=== PATIENT | male | born 1975 | race Caucasian/White ===

== ENCOUNTER 2020-07-17 13:31 | Inpatient (IN) | payer BC ==
[~2020-07-17] VITALS: Ht 172.7 cm; Wt 88.5 kg
[2020-07-17 14:05] LABS: BASO % 1 % (0-3); EOS # 0.1 x10^3/uL (0.0-0.7); EOS % 1 % (0-3); HEMATOCRIT 42.9 % (39.0-53.0); LYMPH # 0.8 x10^3/uL (1.0-4.8); LYMPH % 16 % (24-48); MEAN CORPUSCULAR HEMOGLOBIN 27 pg (25-35); MEAN CORPUSCULAR HGB CONC 35 g/dL (31-37); MEAN CORPUSCULAR VOLUME 78 fL (79-100); MONO # 0.6 x10^3/uL (0.0-1.1); MONO % 11 % (0-9); NEUT # 3.6 x10^3/uL (1.8-7.7); NEUT % 71 % (31-73); PLATELET COUNT 137 x10^3/uL (140-400); RED CELL DISTRIBUTION WIDTH 13.1 % (11.5-14.5); WHITE BLOOD COUNT 5.1 x10^3/uL (4.0-11.0)
[2020-07-17 14:24] LABS: CALCIUM 8.8 mg/dL (8.5-10.1); CREATININE 0.5 mg/dL (0.7-1.3); GFR 178.2; POTASSIUM 3.9 mmol/L (3.5-5.1)
--- NOTE | 2020-07-17 14:27 | RAD ---
Examination: FOOT RIGHT 3V History: Reason: foot wound x1 month / Spl. Instructions: / History: Comparison/Correlation: None Findings: Total 3 views of the right foot were obtained. Moderate sized calcaneal spur is present. Calcification along the course of the plantar fascia posteriorly is noted. Enthesopathy at the Achilles tendon insertion site seen. Calcific densities overlying the anterior margin of the Achilles tendon shadow on the lateral view noted. Spurring involving the mid foot noted. No displaced fracture or bone destruction. Impression: Degenerative changes are moderately advanced for age. No fracture or bone obstruction. Consider further imaging if osteomyelitis is a concern. Electronically signed by: Genaro Gutierrez MD (07/17/2020 2:24 PM) [id number]
[2020-07-17 14:38] LABS: ALBUMIN 3.2 g/dL (3.4-5.0); ALBUMIN/GLOBULIN RATIO 0.7 (1.0-1.7); MAGNESIUM 1.7 mg/dL (1.8-2.4); TOTAL BILIRUBIN 0.6 mg/dL (0.2-1.0); TOTAL PROTEIN 7.7 g/dL (6.4-8.2)
--- NOTE | 2020-07-17 15:06 | PDOC1 ---
History and Physical Date of Admission Date of Admission DATE: 07/17/20 TIME: 15:02 Identification/Chief Complaint Chief Complaint Foot pain Source Source: Patient History of Present Illness History of Present Illness Mr Álvarez is a 45 yo M w/ PMHx HTN, DM2, diabetic peripheral neuropathy who presents to the emergency department with complaints of wound to the bottom of his right foot that began a month ago. Patient states he went to his pool installer today who told him that he should go to the hospital for treatment. He denies any fever, cough, body aches, nausea, vomiting, diarrhea, shortness of breath, or abdominal pain. Patient states that his right leg has been swollen and now has some redness and warmth in his foot and lower leg. He works on his feet all day at [employer], notes that his A1c was 7 approximately 2 months ago. He does have regular podiatry follow-up and was actually referred to the wound clinic at [facility] today but was prompted to go to the hospital instead by his pool installer. Right foot XR with Calcific densities overlying the anterior margin of the Achilles tendon shadow on the lateral view noted. Spurring involving the mid foot noted. no osteomyelitis changes. Labs significant for WBC 5.1, Hb 15 with MCV 8078, platelets 132, NA 138, K3.9, BUN 12, CR 0.5, lactate 1.1, magnesium 1.7, albumin 3.2, glucose 160. Past Medical History Cardiovascular: HTN Endocrine: Diabetes Past Surgical History Past Surgical History: No pertinent history Family History Family History: Diabetes, Hypertension Social History Smoke: Quit ALCOHOL: none Drugs: None Allergies Allergies: Coded Allergies: No Known Drug Allergies (Unverified , 07/17/20) ROS General: YES: Fatigue, Malaise; No: Chills, Night Sweats, Appetite, Other PSYCHOLOGICAL ROS: No: Anxiety, Behavioral Disorder, Concentration difficultie, Decreased libido, Depression, Disorientation, Hallucinations, Hostility, Irritablity, Memory difficulties, Mood Swings, Obsessive thoughts, Physical abuse, Sexual abuse, Sleep disturbances, Suicidal ideation, Other Eyes: No Blurry vision, No Decreased vision, No Double vision, No Dry eyes, No Excessive tearing, No Eye Pain, No Itchy Eyes, No Loss of vision, No Photophobia, No Scotomata, No Uses contacts, No Uses glasses, No Other HEENT: No: Heacaches, Visual Changes, Hearing change, Nasal congestion, Nasal discharge, Oral lesions, Sinus pain, Sore Throat, Epistaxis, Sneezing, Snoring, Tinnitus, Vertigo, Vocal changes, Other ALLERGY AND IMMUNOLOGY: No: Hives, Insect Bite Sensitivity, Itchy/Watery Eyes, Nasal Congestion, Post Nasal Drip, Seasonal Allergies, Other Hematological and Lymphatic: No: Bleeding Problems, Blood Clots, Blood Transfusions, Brusing, Night Sweats, Pallor, Swollen Lymph Nodes, Other ENDOCRINE: No: Breast Changes, Galactorrhea, Hair Pattern Changes, Hot Flashes, Malaise/lethargy, Mood Swings, Palpitations, Polydipsia/polyuria, Skin Changes, Temperature Intolerance, Unexpected Weight Changes, Other Breast: No New/Changing Breast Lumps, No Nipple changes, No Nipple discharge, No Other Respiratory: No: Cough, Hemoptysis, Orthopnea, Pleuritic Pain, Shortness of breath, SOB with excertion, Sputum Changes, Stridor, Tachypnea, Wheezing, Other Cardiovascular: No Chest Pain, No Palpitations, No Orthopnea, No Paroxysmal Noc. Dyspnea, No Edema, No Lt Headedness, No Other Gastrointestinal: No Nausea, No Vomiting, No Abdominal Pain, No Diarrhea, No Constipation, No Melena, No Hematochezia, No Other Genitourinary: No Dysuria, No Frequency, No Incontinence, No Hematuria, No Retention, No Discharge, No Urgency, No Pain, No Flank Pain, No Other, No , No , No , No , No , No , No Musculoskeletal: Yes Gait Disturbance, Yes Joint Pain; No Joint Stiffness, No Joint Swelling, No Muscle Pain, No Muscular Weakness, No Pain In:, No Swelling In:, No Other Neurological: No Behavorial Changes, No Bowel/Bladder ControlChng, No Confusion, No Dizziness, No Gait Disturbance, No Headaches, No Impaired Coord/balance, No Memory Loss, No Numbness/Tingling, No Seizures, No Speech Problems, No Tremors, No Visual Changes, No Weakness, No Other Skin: Yes Rash, Yes Skin Lesion Changes; No Dry Skin, No Eczema, No Hair Changes, No Lumps, No Mole Changes, No Mottling, No Nail Changes, No Pruritus, No Other, No Acne Physical Exam General: Alert, Oriented X3, Cooperative, No acute distress HEENT: Atraumatic, PERRLA, EOMI, Mucous membr. moist/pink Lungs: Clear to auscultation, Normal air movement Heart: S1S2, RRR, no thrills, no rubs, no gallops, no murmurs Abdomen: Normal bowel sounds, Soft, No tenderness, No hepatosplenomegaly, No masses Rectal Exam: not examined Extremities: No clubbing, No cyanosis, Other (RLE edema, swelling, decreased DP and PT) Skin: Other (Right foot with some redness, open wound 5th MTP laterally and 2nd and 3rd MTP joint with ulcer between his 4th and 5th toe) Neuro: Normal gait, Normal speech, Strength at 5/5 X4 ext, Normal tone, Sensati on intact, Cranial nerves 3-12 NL, Reflexes 2+ Psych/Mental Status: Mental status NL, Mood NL Vitals Vitals Vital Signs Date Time Temp Pulse Resp B/P (MAP) Pulse Ox O2 Delivery O2 Flow Rate FiO2 07/17/20 13:40 98.5 105 12 161/67 (98) 98 Room Air 98.5 Labs Labs Laboratory Tests Test 07/17/20 13:48 White Blood Count 5.1 x10^3/uL (4.0-11.0) Red Blood Count 5.50 x10^6/uL (4.30-5.70) Hemoglobin 15.0 g/dL (13.0-17.5) Hematocrit 42.9 % (39.0-53.0) Mean Corpuscular Volume 78 fL (79-100) Mean Corpuscular Hemoglobin 27 pg (25-35) Mean Corpuscular Hemoglobin Concent 35 g/dL (31-37) Red Cell Distribution Width 13.1 % (11.5-14.5) Platelet Count 137 x10^3/uL (140-400) Neutrophils (%) (Auto) 71 % (31-73) Lymphocytes (%) (Auto) 16 % (24-48) Monocytes (%) (Auto) 11 % (0-9) Eosinophils (%) (Auto) 1 % (0-3) Basophils (%) (Auto) 1 % (0-3) Neutrophils # (Auto) 3.6 x10^3/uL (1.8-7.7) Lymphocytes # (Auto) 0.8 x10^3/uL (1.0-4.8) Monocytes # (Auto) 0.6 x10^3/uL (0.0-1.1) Eosinophils # (Auto) 0.1 x10^3/uL (0.0-0.7) Basophils # (Auto) 0.0 x10^3/uL (0.0-0.2) Sodium Level 138 mmol/L (136-145) Potassium Level 3.9 mmol/L (3.5-5.1) Chloride Level 104 mmol/L (98-107) Carbon Dioxide Level 25 mmol/L (21-32) Anion Gap 9 (6-14) Blood Urea Nitrogen 17 mg/dL (8-26) Creatinine 0.5 mg/dL (0.7-1.3) Estimated GFR (Cockcroft-Gault) 178.2 BUN/Creatinine Ratio 34 (6-20) Glucose Level 160 mg/dL (70-99) Lactic Acid Level 1.1 mmol/L (0.4-2.0) Calcium Level 8.8 mg/dL (8.5-10.1) Magnesium Level 1.7 mg/dL (1.8-2.4) Total Bilirubin 0.6 mg/dL (0.2-1.0) Aspartate Amino Transf (AST/SGOT) 32 U/L (15-37) Alanine Aminotransferase (ALT/SGPT) 36 U/L (16-63) Alkaline Phosphatase 83 U/L (46-116) Total Protein 7.7 g/dL (6.4-8.2) Albumin 3.2 g/dL (3.4-5.0) Albumin/Globulin Ratio 0.7 (1.0-1.7) Laboratory Tests Test 07/17/20 13:48 White Blood Count 5.1 x10^3/uL (4.0-11.0) Red Blood Count 5.50 x10^6/uL (4.30-5.70) Hemoglobin 15.0 g/dL (13.0-17.5) Hematocrit 42.9 % (39.0-53.0) Mean Corpuscular Volume 78 fL (79-100) Mean Corpuscular Hemoglobin 27 pg (25-35) Mean Corpuscular Hemoglobin Concent 35 g/dL (31-37) Red Cell Distribution Width 13.1 % (11.5-14.5) Platelet Count 137 x10^3/uL (140-400) Neutrophils (%) (Auto) 71 % (31-73) Lymphocytes (%) (Auto) 16 % (24-48) Monocytes (%) (Auto) 11 % (0-9) Eosinophils (%) (Auto) 1 % (0-3) Basophils (%) (Auto) 1 % (0-3) Neutrophils # (Auto) 3.6 x10^3/uL (1.8-7.7) Lymphocytes # (Auto) 0.8 x10^3/uL (1.0-4.8) Monocytes # (Auto) 0.6 x10^3/uL (0.0-1.1) Eosinophils # (Auto) 0.1 x10^3/uL (0.0-0.7) Basophils # (Auto) 0.0 x10^3/uL (0.0-0.2) Sodium Level 138 mmol/L (136-145) Potassium Level 3.9 mmol/L (3.5-5.1) Chloride Level 104 mmol/L (98-107) Carbon Dioxide Level 25 mmol/L (21-32) Anion Gap 9 (6-14) Blood Urea Nitrogen 17 mg/dL (8-26) Creatinine 0.5 mg/dL (0.7-1.3) Estimated GFR (Cockcroft-Gault) 178.2 BUN/Creatinine Ratio 34 (6-20) Glucose Level 160 mg/dL (70-99) Lactic Acid Level 1.1 mmol/L (0.4-2.0) Calcium Level 8.8 mg/dL (8.5-10.1) Magnesium Level 1.7 mg/dL (1.8-2.4) Total Bilirubin 0.6 mg/dL (0.2-1.0) Aspartate Amino Transf (AST/SGOT) 32 U/L (15-37) Alanine Aminotransferase (ALT/SGPT) 36 U/L (16-63) Alkaline Phosphatase 83 U/L (46-116) Total Protein 7.7 g/dL (6.4-8.2) Albumin 3.2 g/dL (3.4-5.0) Albumin/Globulin Ratio 0.7 (1.0-1.7) Images Images Right Foot XR: Moderate sized calcaneal spur is present. Calcification along the course of the plantar fascia posteriorly is noted. Enthesopathy at the Achilles tendon insertion site seen. Calcific densities overlying the anterior margin of the Achilles tendon shadow on the lateral view noted. Spurring involving the mid foot noted. No displaced fracture or bone destruction. Impression: Degenerative changes are moderately advanced for age. No fracture or bone obstruction. Consider further imaging if osteomyelitis is a concern. VTE Prophylaxis Ordered VTE Prophylaxis Devices: No VTE Pharmacological Prophylaxi: Yes Assessment/Plan Assessment/Plan A/P: Right foot with diabetic ulcer - open wound, foul smelling, actively bleeding. Will obtain deep wound culture, blood cultures, empiric vancomycin and zosyn. RLE vascular studies to assess whether vascular or ortho consultation for possible surgical debridement Right foot and leg cellulitis - failed outpatient therapy with podiatry, antibiotics as above DM2 - A1c 7, will place on sliding scale while inpatient Diabetic polyneuropathy - cont home gabapentin HTN - cont home meds FEN - ADA diet PPX - lovenox FULL CODE Dispo - inpatient for diabetic ulcer failing outpatient therapy Justifications for Admission Other Justification LIZBETH MARTIN MD Jul 17, 2020 15:06
--- NOTE | 2020-07-17 15:10 | PHYS DOC ---
Past Medical History Past Medical History: Diabetes-Type II, Hypertension Past Surgical History: No Surgical History Smoking Status: Former Smoker Alcohol Use: None General Adult EDM: Chief Complaint: OTHER COMPLAINTS HPI: HPI: Patient is a 45 year old male who presents to the emergency department with complaints of wound to the bottom of his right foot that began a month ago. Patient states he went to his foot doctor today who told him that he should go to the hospital for treatment. He denies any fever, cough, body aches, nausea, vomiting, diarrhea, shortness of breath, or abdominal pain. Patient states that his right leg has been swollen but denies any warmth or redness to his right lower leg. He reports a history of diabetes, he denies any recent fluctuations in his blood sugars. Patient reports a history of neuropathy denies any pain. Review of Systems: Review of Systems: Constitutional: Denies fever or chills. [] HENT: Denies nasal congestion or sore throat. [] Respiratory: Denies cough or shortness of breath. [] Cardiovascular: Denies chest pain or edema. [] GI: Denies abdominal pain, nausea, vomiting, or diarrhea. [] Musculoskeletal: Denies back pain or joint pain; see HPI. [] Integument: Reports ulcer to the bottom of right foot at the base of the second toe for 1 month, see HPI Neurologic: Denies focal weakness or sensory changes. [] Endocrine: Denies polyuria or polydipsia. [] Psychiatric: Denies depression or anxiety. [] Heart Score: Risk Factors: Risk Factors: DM, Current or recent (<one month) smoker, HTN, HLP, family history of CAD, obesity. Risk Scores: Score 0 - 3: 2.5% MACE over next 6 weeks - Discharge Home Score 4 - 6: 20.3% MACE over next 6 weeks - Admit for Clinical Observation Score 7 - 10: 72.7% MACE over next 6 weeks - Early Invasive Strategies Allergies: Allergies: Allergies Coded Allergies Type Severity Reaction Last Updated Verified No Known Drug Allergies 07/17/20 No Physical Exam: PE: Constitutional: Well developed, well nourished, no acute distress, non-toxic appearance. [] HENT: Normocephalic, atraumatic, bilateral external ears normal, nose normal. [] Eyes: PERRLA, EOMI, conjunctiva normal, no discharge. [] Neck: Normal range of motion, no stridor. [] Cardiovascular:Heart rate regular rhythm Lungs & Thorax: Respirations even and unlabored, no retractions, no respiratory distress Abdomen: soft, no tenderness Skin: Warm, dry, no erythema, no rash; open wound to the right foot at the base of the second toe with necrotic tissue present consistent with diabetic foot ulcer [] Extremities: RLE: Nontender, no obvious deformity, no cyanosis, ROM intact, 2+ edema to right foot and lower leg Neurologic: Alert and oriented X 3, no focal deficits noted. [] Psychologic: Affect normal, judgement normal, mood normal. [] Current Patient Data: Labs: Laboratory Tests Test 07/17/20 13:48 White Blood Count 5.1 x10^3/uL (4.0-11.0) Red Blood Count 5.50 x10^6/uL (4.30-5.70) Hemoglobin 15.0 g/dL (13.0-17.5) Hematocrit 42.9 % (39.0-53.0) Mean Corpuscular Volume 78 fL (79-100) L Mean Corpuscular Hemoglobin 27 pg (25-35) Mean Corpuscular Hemoglobin Concent 35 g/dL (31-37) Red Cell Distribution Width 13.1 % (11.5-14.5) Platelet Count 137 x10^3/uL (140-400) L Neutrophils (%) (Auto) 71 % (31-73) Lymphocytes (%) (Auto) 16 % (24-48) L Monocytes (%) (Auto) 11 % (0-9) H Eosinophils (%) (Auto) 1 % (0-3) Basophils (%) (Auto) 1 % (0-3) Neutrophils # (Auto) 3.6 x10^3/uL (1.8-7.7) Lymphocytes # (Auto) 0.8 x10^3/uL (1.0-4.8) L Monocytes # (Auto) 0.6 x10^3/uL (0.0-1.1) Eosinophils # (Auto) 0.1 x10^3/uL (0.0-0.7) Basophils # (Auto) 0.0 x10^3/uL (0.0-0.2) Sodium Level 138 mmol/L (136-145) Potassium Level 3.9 mmol/L (3.5-5.1) Chloride Level 104 mmol/L (98-107) Carbon Dioxide Level 25 mmol/L (21-32) Anion Gap 9 (6-14) Blood Urea Nitrogen 17 mg/dL (8-26) Creatinine 0.5 mg/dL (0.7-1.3) L Estimated GFR (Cockcroft-Gault) 178.2 BUN/Creatinine Ratio 34 (6-20) H Glucose Level 160 mg/dL (70-99) H Lactic Acid Level 1.1 mmol/L (0.4-2.0) Calcium Level 8.8 mg/dL (8.5-10.1) Magnesium Level 1.7 mg/dL (1.8-2.4) L Total Bilirubin 0.6 mg/dL (0.2-1.0) Aspartate Amino Transferase (AST) 32 U/L (15-37) Alanine Aminotransferase (ALT) 36 U/L (16-63) Alkaline Phosphatase 83 U/L (46-116) Total Protein 7.7 g/dL (6.4-8.2) Albumin 3.2 g/dL (3.4-5.0) L Albumin/Globulin Ratio 0.7 (1.0-1.7) L Laboratory Tests 07/17/20 13:48 Laboratory Tests 07/17/20 13:48 Vital Signs: Vital Signs Date Time Temp Pulse Resp B/P (MAP) Pulse Ox O2 Delivery O2 Flow Rate FiO2 07/17/20 13:40 98.5 105 12 161/67 (98) 98 Room Air 98.5 EKG: EKG: [] Radiology/Procedures: Radiology/Procedures: PROCEDURE: FOOT RIGHT 3V Examination: FOOT RIGHT 3V History: Reason: foot wound x1 month / Spl. Instructions: / History: Comparison/Correlation: None Findings: Total 3 views of the right foot were obtained. Moderate sized calcaneal spur is present. Calcification along the course of the plantar fascia posteriorly is noted. Enthesopathy at the Achilles tendon insertion site seen. Calcific densities overlying the anterior margin of the Achilles tendon shadow on the lateral view noted. Spurring involving the mid foot noted. No displaced fracture or bone destruction. Impression: Degenerative changes are moderately advanced for age. No fracture or bone obstruction. Consider further imaging if osteomyelitis is a concern. Electronically signed by: Genaro Gutierrez MD (07/17/2020 2:24 PM) [id number] [] Course & Med Decision Making: Course & Med Decision Making Pertinent Labs and Imaging studies reviewed. (See chart for details) 1445: Spoke with Dr. Willard who is the admitting physician, and care was assumed following discussion of patient. Will admit patient for right foot wound Patient's vital signs stable. Patient remains afebrile, appears nontoxic, respirations even and unlabored. Patient will be admitted to the med/surgical floor. Dragon Disclaimer: Dragon Disclaimer: This electronic medical record was generated, in whole or in part, using a voice recognition dictation system. Departure Departure Impression: Primary Impression: Unspecified open wound, right foot, initial encounter Disposition: ADMITTED INPATIENT Admitting Physician: JUSTO (Sudheer) Condition: STABLE Referrals: MARLENE DUGAN (PCP) Justicifation of Admission Dx: Justifications for Admission: Justification of Admission Dx: Yes Sepsis: Infection TOMMIE MOORE [employer] Jul 17, 2020 15:10
[2020-07-17] MEDS ORDERED: MAGNESIUM SULFATE 2GM 50 ML IV ONE (15:15)
[2020-07-17 16:00] VITALS: BP 164/96
[2020-07-17] MEDS ORDERED: LORazepam 0.5 MG TABLET PO PRN (16:30)
[2020-07-17] MEDS ORDERED: ACETAMINOPHEN 325 MG TABLET. PO PRN (16:30)
[2020-07-17] MEDS ORDERED: MORPHINE SULFATE 2 MG/ML VIAL. IV PRN (16:30)
[2020-07-17] MEDS ORDERED: DEXTROSE 50% 25 GM / 50ML DISP.SYRIN. IV PRN (16:30)
[2020-07-17] MEDS ORDERED: ZOLPIDEM 5 MG TABLET. PO PRN (16:30)
[2020-07-17] MEDS ORDERED: DOCUSATE SODIUM 100 MG CAPSULE. PO PRN (16:30)
[2020-07-17] MEDS ORDERED: ONDANSETRON PF 4 MG/2 ML VIAL. IV PRN (16:30)
--- NOTE | 2020-07-17 16:41 | RAD ---
Right lower extremity arterial ultrasound History: : Wound, swelling, decreased pulses Findings: Multiple grayscale, color, and duplex spectral analysis sonographic images were acquired of the lower extremity arteries bilaterally. There are no previous similar exams. Triphasic flow is noted throughout the visualized right lower extremity arterial vasculature with the exception of the profunda femoris artery which has biphasic flow. Peroneal artery was not delineated.. Velocities in cm/sec: RIGHT Common femoral artery 133 Profunda femoris artery 40 Proximal SFA 118 Mid SFA 125 Distal SFA 107 Popliteal artery 138 Anterior tibial artery 87 Dorsalis pedis artery 94 Posterior tibial artery 145 Peroneal artery not visualized Impression: No right lower extremity arterial hemodynamic stenosis identified. No significant plaque seen. Electronically signed by: Geanro Gutierrez MD (07/17/2020 4:38 PM) [id number]
[2020-07-17] MEDS: INSULIN LISPRO 300 UNITS/3 ML VIAL. SQ SCH ×2 (17:00→21:00)
[2020-07-17] MEDS ORDERED: GLIP5TAB22 PO (17:34)
[2020-07-17] MEDS ORDERED: GABA-585 PO (17:34)
[2020-07-17] MEDS ORDERED: LISI-334 PO (17:34)
[2020-07-17] MEDS ORDERED: INSU100V37 SQ (17:34)
[2020-07-17] MEDS ORDERED: VANCOMYCIN 2 GM in IV NORMAL SALINE 500ML BAG 500 ML IV ONE (18:30)
[2020-07-17 19:00] VITALS: BP 156/89
[2020-07-17] MEDS ORDERED: FLU VACC QS 2020-21(6MOS+)/PF 0.5 ML SYRINGE. VAX IM ONE (19:00)
--- NOTE | 2020-07-17 19:31 | NUR ---
Per , only culture wound if there is noticeable drainage.
[2020-07-17] MEDS: PIPERACILLIN/TAZOBACTAM 3.375 GM in IV NORMAL SALINE 50ML 50 ML IV SCH ×2 (20:02→23:53)
[2020-07-17] MEDS: traMADol 50 MG TABLET PO PRN (20:03)
[2020-07-17] MEDS: VANCOMYCIN PER PHARMACY MC PRN (20:18)
--- NOTE | 2020-07-17 20:22 | NUR ---
Pharmacy Vancomycin Dosing Note S:Consulted to monitor and dose vancomycin started 07/17/20. O:SISSY JORDAN is a 45 year old M with Cellulitis. Height: 5 feet, 8 inches Weight: 84.0 kg [place] Body Weight: 68.40 Adjusted Body Weight: 74.64 Dosing Weight: Actual Other Antibiotics: zosyn LABS: Last BUN: 17 Last Creatinine: 0.5 Creatinine Clearance: >100 mL/min Last WBC: 5.1 Last Procalcitonin: - Tmax (past 24 hours): 98.5 Vancomycin Dosing: Loading Dose: 2000 mg x1 Dosing Weight: Actual Target Trough: A: Based on: weight and renal function P: 1. Begin Vancomycin 1250 mg IV q8h after 2g loading dose 2. Follow up Trough level on 07/18/20 at 2030 3. Pharmacy will continue to monitor, follow and adjust therapy as needed. Charity Hutchins RPH, 07/17/202022
[2020-07-17 23:00] VITALS: BP 146/81
[2020-07-18] VITALS (12 sets, daily range): BP systolic 130–162; BP diastolic 77–94
[2020-07-18] MEDS: PIPERACILLIN/TAZOBACTAM 3.375 GM in IV NORMAL SALINE 50ML 50 ML IV SCH ×4 (05:31→23:35)
[2020-07-18] MEDS: VANCOMYCIN 1.25 GM in IV NORMAL SALINE 250ML 250 ML IV SCH ×3 (05:54→21:17)
[2020-07-18 07:54] LABS: CALCIUM 8.4 mg/dL (8.5-10.1); CREATININE 0.6 mg/dL (0.7-1.3); GFR 144.4; POTASSIUM 3.9 mmol/L (3.5-5.1)
[2020-07-18] MEDS: INSULIN LISPRO 300 UNITS/3 ML VIAL. SQ SCH ×4 (08:13→21:28)
--- NOTE | 2020-07-18 08:45 | PDOC ---
[employer] PROGRESS NOTE Date of Service DOS: DATE: 07/18/20 TIME: 08:45 Chief Complaint Chief Complaint A/P: Right foot with diabetic ulcer - open wound, foul smelling, actively bleeding. Will obtain deep wound culture, blood cultures, empiric vancomycin and zosyn. RLE vascular studies to assess whether vascular or ortho consultation for possible surgical debridement Right foot and leg cellulitis - failed outpatient therapy with podiatry, antibiotics as above DM2 - A1c 7, will place on sliding scale while inpatient Diabetic polyneuropathy - cont home gabapentin HTN - cont home meds FEN - ADA diet PPX - lovenox FULL CODE Dispo - inpatient for diabetic ulcer failing outpatient therapy History of Present Illness History of Present Illness Mr Álvarez is a 45 yo M w/ PMHx HTN, DM2, diabetic peripheral neuropathy who presents to the emergency department with complaints of wound to the bottom of his right foot that began a month ago. Patient states he went to his marketing representative today who told him that he should go to the hospital for treatment. He denies any fever, cough, body aches, nausea, vomiting, diarrhea, shortness of breath, or abdominal pain. Patient states that his right leg has been swollen and now has some redness and warmth in his foot and lower leg. He works on his feet all day at [employer], notes that his A1c was 7 approximately 2 months ago. He does have regular podiatry follow-up and was actually referred to the wound clinic at [facility] today but was prompted to go to the hospital instead by his marketing representative. Right foot XR with calcific densities overlying the anterior margin of the Achilles tendon shadow on the lateral view noted. Spurring involving the mid foot noted. no osteomyelitis changes. Labs significant for WBC 5.1, Hb 15 with MCV 78, platelets 132, NA 138, K3.9, BUN 12, CR 0.5, lactate 1.1, magnesium 1.7, albumin 3.2, glucose 160. He had an uneventful night, still with drainage from foot. Labs stable. No SOB or CP, mild foot pain. NPO for possible OR today Vitals/I&O Vitals/I&O: Vital Signs Date Time Temp Pulse Resp B/P (MAP) Pulse Ox O2 Delivery O2 Flow Rate FiO2 07/18/20 03:00 98.9 84 18 133/77 (95) 96 Room Air 98.9 I & O 07/17/20 07/17/20 07/18/20 15:00 23:00 07:00 Intake Total 390 ml 1420 ml Output Total 1000 ml Balance 390 ml 420 ml Physical Exam General: Alert, Oriented X3, Cooperative, No acute distress Abdomen: Normal bowel sounds, Soft, No tenderness, No hepatosplenomegaly, No masses Extremities: No clubbing, No cyanosis, Other (RLE edema, swelling, decreased DP and PT) Skin: Other (Right foot with some redness, open wound 5th MTP laterally and 2nd and 3rd MTP joint with ulcer between his 4th and 5th toe) Labs Labs: Laboratory Tests Test 07/17/20 13:48 07/17/20 16:38 07/17/20 20:36 07/18/20 06:30 White Blood Count 5.1 x10^3/uL (4.0-11.0) Red Blood Count 5.50 x10^6/uL (4.30-5.70) Hemoglobin 15.0 g/dL (13.0-17.5) Hematocrit 42.9 % (39.0-53.0) Mean Corpuscular Volume 78 fL (79-100) Mean Corpuscular Hemoglobin 27 pg (25-35) Mean Corpuscular Hemoglobin Concent 35 g/dL (31-37) Red Cell Distribution Width 13.1 % (11.5-14.5) Platelet Count 137 x10^3/uL (140-400) Neutrophils (%) (Auto) 71 % (31-73) Lymphocytes (%) (Auto) 16 % (24-48) Monocytes (%) (Auto) 11 % (0-9) Eosinophils (%) (Auto) 1 % (0-3) Basophils (%) (Auto) 1 % (0-3) Neutrophils # (Auto) 3.6 x10^3/uL (1.8-7.7) Lymphocytes # (Auto) 0.8 x10^3/uL (1.0-4.8) Monocytes # (Auto) 0.6 x10^3/uL (0.0-1.1) Eosinophils # (Auto) 0.1 x10^3/uL (0.0-0.7) Basophils # (Auto) 0.0 x10^3/uL (0.0-0.2) Sodium Level 138 mmol/L (136-145) 140 mmol/L (136-145) Potassium Level 3.9 mmol/L (3.5-5.1) 3.9 mmol/L (3.5-5.1) Chloride Level 104 mmol/L (98-107) 105 mmol/L (98-107) Carbon Dioxide Level 25 mmol/L (21-32) 30 mmol/L (21-32) Anion Gap 9 (6-14) 5 (6-14) Blood Urea Nitrogen 17 mg/dL (8-26) 11 mg/dL (8-26) Creatinine 0.5 mg/dL (0.7-1.3) 0.6 mg/dL (0.7-1.3) Estimated GFR (Cockcroft-Gault) 178.2 144.4 BUN/Creatinine Ratio 34 (6-20) Glucose Level 160 mg/dL (70-99) 89 mg/dL (70-99) Lactic Acid Level 1.1 mmol/L (0.4-2.0) Calcium Level 8.8 mg/dL (8.5-10.1) 8.4 mg/dL (8.5-10.1) Magnesium Level 1.7 mg/dL (1.8-2.4) Iron Level 63 ug/dL (65-175) Total Iron Binding Capacity 269 ug/dL (250-450) Iron Saturation 23 % (15-34) Total Bilirubin 0.6 mg/dL (0.2-1.0) Aspartate Amino Transf (AST/SGOT) 32 U/L (15-37) Alanine Aminotransferase (ALT/SGPT) 36 U/L (16-63) Alkaline Phosphatase 83 U/L (46-116) C-Reactive Protein, Quantitative 15.6 mg/L (0-3.3) Total Protein 7.7 g/dL (6.4-8.2) Albumin 3.2 g/dL (3.4-5.0) Albumin/Globulin Ratio 0.7 (1.0-1.7) Thyroid Stimulating Hormone (TSH) 1.315 uIU/mL (0.358-3.74) Glucose (Fingerstick) 178 mg/dL (70-99) 181 mg/dL (70-99) Test 07/18/20 07:30 SARS-CoV-2 Antigen (Rapid) Negative (NEGATIVE) Assessment and Plan Assessmemt and Plan Problems Medical Problems: (1) Unspecified open wound, right foot, initial encounter Status: Acute Comment Review of Relevant I have reviewed the following items jayden (where applicable) has been applied. Medications: Current Medications Medications (Trade) Dose Ordered Sig/Mago Route PRN Reason Start Time Stop Time Status Last Admin Dose Admin Magnesium Sulfate 50 ml @ 25 mls/hr 1X ONCE IV 07/17/20 15:15 07/17/20 17:14 DC 07/17/20 23:52 Tramadol HCl (Ultram) 50 mg PRN Q6HRS PRN PO PAIN 07/17/20 16:30 07/17/20 20:03 Vancomycin HCl (Vanco Per Pharmacy) 1 each PRN DAILY PRN MC SEE COMMENTS 07/17/20 16:30 07/17/20 20:18 Vancomycin HCl 2 gm/Sodium Chloride 500 ml @ 250 mls/hr 1X ONCE IV 07/17/20 18:30 07/17/20 20:29 DC 07/17/20 21:09 Piperacillin Sod/ Tazobactam Sod 3.375 gm/Sodium Chloride 50 ml @ 100 mls/hr Q6HRS IV 07/17/20 18:00 07/18/20 05:31 Influenza Virus Vaccine Quadrival (Fluzone Quad Syringe) 0.5 ml ONCE ONCE VAX IM 07/17/20 19:00 07/17/20 19:01 DC 07/17/20 20:06 Vancomycin HCl 1.25 gm/Sodium Chloride 250 ml @ 167 mls/hr Q8H IV 07/18/20 05:00 07/18/20 05:54 Justifications for Admission Other Justification LIZBETH MARTIN MD Jul 18, 2020 08:45
--- NOTE | 2020-07-18 09:11 | PDOC2 ---
CONSULT Date of Consult Date of Consult DATE: 07/18/20 TIME: 09:10 Reason for Consult Reason for Consult: Right foot wound Referring Physician Referring Physician: Sudheer Identification/Chief Complaint Chief Complaint Right foot pain History of Present Illness Reason for Visit: Patient is a very pleasant 45-year-old with diabetes who tells me he has had a foot wound for several days to couple weeks, he is not exactly sure. He has had wounds in the past and these have healed uneventfully but these have been getting worse at his right foot recently. He has noticed some bloody drainage. He does feel like his right foot and ankle are little more swollen lately. He denies any feelings of being ill, fevers or chills. He has not had any treatments for his foot wounds yet Past Medical History Cardiovascular: HTN Endocrine: Diabetes Past Surgical History Past Surgical History: No pertinent history Family History Family History: Diabetes, Hypertension Social History Quit ALCOHOL: none Drugs: None Current Problem List Problem List Problems Medical Problems: (1) Unspecified open wound, right foot, initial encounter Status: Acute Current Medications Current Medications Current Medications Magnesium Sulfate 50 ml @ 25 mls/hr 1X ONCE IV Last administered on 07/17/20at 23:52; Start 07/17/20 at 15:15; Stop 07/17/20 at 17:14; Status DC Ondansetron HCl (Zofran) 4 mg PRN Q4HRS PRN IV NAUSEA/VOMITING; Start 07/17/20 at 16:30 Zolpidem Tartrate (Ambien) 5 mg PRN QHS PRN PO INSOMNIA; Start 07/17/20 at 16:30 Acetaminophen (Tylenol) 650 mg PRN Q4HRS PRN PO TEMP OVER 100.4F; Start 07/17/20 at 16:30 Docusate Sodium (Colace) 100 mg PRN BID PRN PO HARD STOOLS; Start 07/17/20 at 16:30 Lorazepam (Ativan) 0.5 mg PRN Q4HRS PRN PO ANXIETY / AGITATION; Start 07/17/20 at 16:30 Tramadol HCl (Ultram) 50 mg PRN Q6HRS PRN PO PAIN Last administered on 07/17/20at 20:03; Start 07/17/20 at 16:30 Morphine Sulfate (Morphine Sulfate) 2 mg PRN Q4HRS PRN IV PAIN; Start 07/17/20 at 16:30 Insulin Human Lispro (HumaLOG) 0-7 UNITS TIDWMEALHC SQ ; Start 07/17/20 at 17:00 Dextrose (Dextrose 50%-Water Syringe) 12.5 gm PRN Q15MIN PRN IV SEE COMMENTS; Start 07/17/20 at 16:30 Vancomycin HCl (Vanco Per Pharmacy) 1 each PRN DAILY PRN MC SEE COMMENTS Last administered on 07/17/20at 20:18; Start 07/17/20 at 16:30 Vancomycin HCl 2 gm/Sodium Chloride 500 ml @ 250 mls/hr 1X ONCE IV Last administered on 07/17/20at 21:09; Start 07/17/20 at 18:30; Stop 07/17/20 at 20:29; Status DC Piperacillin Sod/ Tazobactam Sod 3.375 gm/Sodium Chloride 50 ml @ 100 mls/hr Q6HRS IV Last administered on 07/18/20at 05:31; Start 07/17/20 at 18:00 Influenza Virus Vaccine Quadrival (Fluzone Quad Syringe) 0.5 ml ONCE ONCE VAX IM Last administered on 07/17/20at 20:06; Start 07/17/20 at 19:00; Stop 07/17/20 at 19:01; Status DC Vancomycin HCl 1.25 gm/Sodium Chloride 250 ml @ 167 mls/hr Q8H IV Last administered on 07/18/20at 05:54; Start 07/18/20 at 05:00 Vancomycin HCl (Vancomycin Trough Level) 1 each 1X ONCE MC ; Start 07/18/20 at 20:30; Stop 07/18/20 at 20:31 Active Scripts Active Reported Lisinopril 20 Mg Tablet 1 Tab PO DAILY Glipizide Er (Glipizide) 5 Mg Tab.er.24 1 Tab PO DAILY Tresiba (Insulin Degludec) 100 Unit/1 Ml Vial 57 Unit SQ [id number] Gabapentin (Gabapentin) 100 Mg Capsule 100 Mg PO TID Allergies Allergies: Coded Allergies: No Known Drug Allergies (Unverified , 07/17/20) ROS General: No: Chills, Night Sweats, Fatigue, Malaise, Appetite, Other PSYCHOLOGICAL ROS: No: Anxiety, Behavioral Disorder, Concentration difficultie, Decreased libido, Depression, Disorientation, Hallucinations, Hostility, Irritablity, Memory difficulties, Mood Swings, Obsessive thoughts, Physical abuse, Sexual abuse, Sleep disturbances, Suicidal ideation, Other Eyes: No Blurry vision, No Decreased vision, No Double vision, No Dry eyes, No Excessive tearing, No Eye Pain, No Itchy Eyes, No Loss of vision, No Photophobia, No Scotomata, No Uses contacts, No Uses glasses, No Other HEENT: No: Heacaches, Visual Changes, Hearing change, Nasal congestion, Nasal discharge, Oral lesions, Sinus pain, Sore Throat, Epistaxis, Sneezing, Snoring, Tinnitus, Vertigo, Vocal changes, Other ALLERGY AND IMMUNOLOGY: No: Hives, Insect Bite Sensitivity, Itchy/Watery Eyes, Nasal Congestion, Post Nasal Drip, Seasonal Allergies, Other Hematological and Lymphatic: No: Bleeding Problems, Blood Clots, Blood Transfusions, Brusing, Night Sweats, Pallor, Swollen Lymph Nodes, Other ENDOCRINE: No: Breast Changes, Galactorrhea, Hair Pattern Changes, Hot Flashes, Malaise/lethargy, Mood Swings, Palpitations, Polydipsia/polyuria, Skin Changes, Temperature Intolerance, Unexpected Weight Changes, Other Respiratory: No: Cough, Hemoptysis, Orthopnea, Pleuritic Pain, Shortness of breath, SOB with excertion, Sputum Changes, Stridor, Tachypnea, Wheezing, Other Cardiovascular: No Chest Pain, No Palpitations, No Orthopnea, No Paroxysmal Noc. Dyspnea, No Edema, No Lt Headedness, No Other Gastrointestinal: No Nausea, No Vomiting, No Abdominal Pain, No Diarrhea, No Constipation, No Melena, No Hematochezia, No Other Genitourinary: No Dysuria, No Frequency, No Incontinence, No Hematuria, No Re tention, No Discharge, No Urgency, No Pain, No Flank Pain, No Other, No , No , No , No , No , No , No Musculoskeletal: Yes Pain In: (Right foot); No Gait Disturbance, No Joint Pain, No Joint Stiffness, No Joint Swelling, No Muscle Pain, No Muscular Weakness, No Swelling In:, No Other Neurological: No Behavorial Changes, No Bowel/Bladder ControlChng, No Confusion, No Dizziness, No Gait Disturbance, No Headaches, No Impaired Coord/balance, No Memory Loss, No Numbness/Tingling, No Seizures, No Speech Problems, No Tremors, No Visual Changes, No Weakness, No Other Skin: No Dry Skin, No Eczema, No Hair Changes, No Lumps, No Mole Changes, No Mottling, No Nail Changes, No Pruritus, No Rash, No Skin Lesion Changes, No Other, No Acne Physical Exam General: Alert, Oriented X3, No acute distress HEENT: Atraumatic, EOMI Lungs: Other (Respirations are unlabored symmetric chest rise) Heart: Regular rate Abdomen: Soft, No tenderness Extremities: Normal pulses, Other (He has right ankle and foot edema.) Skin: No rashes Neuro: Normal speech, Strength at 5/5 X4 ext, Sensation intact (Sensation intact with the exception of decreased subjective sensation from ankles distally at both feet) Psych/Mental Status: Mental status NL, Mood NL MUSCULOSKELETAL: Other (Examination of his right foot reveals mild erythema around about a palm sized area of thickened callus. He does have partial- thickness wounds visible about a quarter size at the medial border of his midfoot plantarly, he has a smaller one over the lateral column of his foot subjacent to the distal fifth metatarsal.) Vitals VITALS Vital Signs Date Time Temp Pulse Resp B/P (MAP) Pulse Ox O2 Delivery O2 Flow Rate FiO2 07/18/20 07:00 98.0 69 18 160/94 (116) 99 Room Air 98.0 Labs Labs Laboratory Tests Test 07/17/20 13:48 07/17/20 16:38 07/17/20 20:36 07/18/20 06:30 White Blood Count 5.1 x10^3/uL (4.0-11.0) Red Blood Count 5.50 x10^6/uL (4.30-5.70) Hemoglobin 15.0 g/dL (13.0-17.5) Hematocrit 42.9 % (39.0-53.0) Mean Corpuscular Volume 78 fL (79-100) Mean Corpuscular Hemoglobin 27 pg (25-35) Mean Corpuscular Hemoglobin Concent 35 g/dL (31-37) Red Cell Distribution Width 13.1 % (11.5-14.5) Platelet Count 137 x10^3/uL (140-400) Neutrophils (%) (Auto) 71 % (31-73) Lymphocytes (%) (Auto) 16 % (24-48) Monocytes (%) (Auto) 11 % (0-9) Eosinophils (%) (Auto) 1 % (0-3) Basophils (%) (Auto) 1 % (0-3) Neutrophils # (Auto) 3.6 x10^3/uL (1.8-7.7) Lymphocytes # (Auto) 0.8 x10^3/uL (1.0-4.8) Monocytes # (Auto) 0.6 x10^3/uL (0.0-1.1) Eosinophils # (Auto) 0.1 x10^3/uL (0.0-0.7) Basophils # (Auto) 0.0 x10^3/uL (0.0-0.2) Sodium Level 138 mmol/L (136-145) 140 mmol/L (136-145) Potassium Level 3.9 mmol/L (3.5-5.1) 3.9 mmol/L (3.5-5.1) Chloride Level 104 mmol/L (98-107) 105 mmol/L (98-107) Carbon Dioxide Level 25 mmol/L (21-32) 30 mmol/L (21-32) Anion Gap 9 (6-14) 5 (6-14) Blood Urea Nitrogen 17 mg/dL (8-26) 11 mg/dL (8-26) Creatinine 0.5 mg/dL (0.7-1.3) 0.6 mg/dL (0.7-1.3) Estimated GFR (Cockcroft-Gault) 178.2 144.4 BUN/Creatinine Ratio 34 (6-20) Glucose Level 160 mg/dL (70-99) 89 mg/dL (70-99) Lactic Acid Level 1.1 mmol/L (0.4-2.0) Calcium Level 8.8 mg/dL (8.5-10.1) 8.4 mg/dL (8.5-10.1) Magnesium Level 1.7 mg/dL (1.8-2.4) Iron Level 63 ug/dL (65-175) Total Iron Binding Capacity 269 ug/dL (250-450) Iron Saturation 23 % (15-34) Total Bilirubin 0.6 mg/dL (0.2-1.0) Aspartate Amino Transf (AST/SGOT) 32 U/L (15-37) Alanine Aminotransferase (ALT/SGPT) 36 U/L (16-63) Alkaline Phosphatase 83 U/L (46-116) C-Reactive Protein, Quantitative 15.6 mg/L (0-3.3) Total Protein 7.7 g/dL (6.4-8.2) Albumin 3.2 g/dL (3.4-5.0) Albumin/Globulin Ratio 0.7 (1.0-1.7) Thyroid Stimulating Hormone (TSH) 1.315 uIU/mL (0.358-3.74) Glucose (Fingerstick) 178 mg/dL (70-99) 181 mg/dL (70-99) Test 07/18/20 07:30 SARS-CoV-2 Antigen (Rapid) Negative (NEGATIVE) Laboratory Tests Test 07/17/20 13:48 07/17/20 16:38 07/17/20 20:36 07/18/20 06:30 White Blood Count 5.1 x10^3/uL (4.0-11.0) Red Blood Count 5.50 x10^6/uL (4.30-5.70) Hemoglobin 15.0 g/dL (13.0-17.5) Hematocrit 42.9 % (39.0-53.0) Mean Corpuscular Volume 78 fL (79-100) Mean Corpuscular Hemoglobin 27 pg (25-35) Mean Corpuscular Hemoglobin Concent 35 g/dL (31-37) Red Cell Distribution Width 13.1 % (11.5-14.5) Platelet Count 137 x10^3/uL (140-400) Neutrophils (%) (Auto) 71 % (31-73) Lymphocytes (%) (Auto) 16 % (24-48) Monocytes (%) (Auto) 11 % (0-9) Eosinophils (%) (Auto) 1 % (0-3) Basophils (%) (Auto) 1 % (0-3) Neutrophils # (Auto) 3.6 x10^3/uL (1.8-7.7) Lymphocytes # (Auto) 0.8 x10^3/uL (1.0-4.8) Monocytes # (Auto) 0.6 x10^3/uL (0.0-1.1) Eosinophils # (Auto) 0.1 x10^3/uL (0.0-0.7) Basophils # (Auto) 0.0 x10^3/uL (0.0-0.2) Sodium Level 138 mmol/L (136-145) 140 mmol/L (136-145) Potassium Level 3.9 mmol/L (3.5-5.1) 3.9 mmol/L (3.5-5.1) Chloride Level 104 mmol/L (98-107) 105 mmol/L (98-107) Carbon Dioxide Level 25 mmol/L (21-32) 30 mmol/L (21-32) Anion Gap 9 (6-14) 5 (6-14) Blood Urea Nitrogen 17 mg/dL (8-26) 11 mg/dL (8-26) Creatinine 0.5 mg/dL (0.7-1.3) 0.6 mg/dL (0.7-1.3) Estimated GFR (Cockcroft-Gault) 178.2 144.4 BUN/Creatinine Ratio 34 (6-20) Glucose Level 160 mg/dL (70-99) 89 mg/dL (70-99) Lactic Acid Level 1.1 mmol/L (0.4-2.0) Calcium Level 8.8 mg/dL (8.5-10.1) 8.4 mg/dL (8.5-10.1) Magnesium Level 1.7 mg/dL (1.8-2.4) Iron Level 63 ug/dL (65-175) Total Iron Binding Capacity 269 ug/dL (250-450) Iron Saturation 23 % (15-34) Total Bilirubin 0.6 mg/dL (0.2-1.0) Aspartate Amino Transf (AST/SGOT) 32 U/L (15-37) Alanine Aminotransferase (ALT/SGPT) 36 U/L (16-63) Alkaline Phosphatase 83 U/L (46-116) C-Reactive Protein, Quantitative 15.6 mg/L (0-3.3) Total Protein 7.7 g/dL (6.4-8.2) Albumin 3.2 g/dL (3.4-5.0) Albumin/Globulin Ratio 0.7 (1.0-1.7) Thyroid Stimulating Hormone (TSH) 1.315 uIU/mL (0.358-3.74) Glucose (Fingerstick) 178 mg/dL (70-99) 181 mg/dL (70-99) Test 07/18/20 07:30 SARS-CoV-2 Antigen (Rapid) Negative (NEGATIVE) Images Images Vascular study and x-rays were reviewed Assessment/Plan Assessment/Plan Given the abundant amount of callosity, it think you are probably better to explore these wounds more fully and debride them in the operating room. I discussed the risks, benefits, alternatives and rationale with him and he wished to proceed. SAUL TRIPLETT II, MD Jul 18, 2020 09:11
[2020-07-18] MEDS: glipiZIDE ER 2.5 MG TAB.ER.24 PO SCH (09:30)
--- NOTE | 2020-07-18 10:28 | PDOC ---
Infectious Disease Note Vital Sign Vital Signs Vital Signs Date Time Temp Pulse Resp B/P (MAP) Pulse Ox O2 Delivery O2 Flow Rate FiO2 07/18/20 07:00 98.0 69 18 160/94 (116) 99 Room Air 98.0 Labs Lab Laboratory Tests Test 07/17/20 13:48 07/17/20 16:38 07/17/20 20:36 07/18/20 06:30 White Blood Count 5.1 x10^3/uL (4.0-11.0) Red Blood Count 5.50 x10^6/uL (4.30-5.70) Hemoglobin 15.0 g/dL (13.0-17.5) Hematocrit 42.9 % (39.0-53.0) Mean Corpuscular Volume 78 fL (79-100) Mean Corpuscular Hemoglobin 27 pg (25-35) Mean Corpuscular Hemoglobin Concent 35 g/dL (31-37) Red Cell Distribution Width 13.1 % (11.5-14.5) Platelet Count 137 x10^3/uL (140-400) Neutrophils (%) (Auto) 71 % (31-73) Lymphocytes (%) (Auto) 16 % (24-48) Monocytes (%) (Auto) 11 % (0-9) Eosinophils (%) (Auto) 1 % (0-3) Basophils (%) (Auto) 1 % (0-3) Neutrophils # (Auto) 3.6 x10^3/uL (1.8-7.7) Lymphocytes # (Auto) 0.8 x10^3/uL (1.0-4.8) Monocytes # (Auto) 0.6 x10^3/uL (0.0-1.1) Eosinophils # (Auto) 0.1 x10^3/uL (0.0-0.7) Basophils # (Auto) 0.0 x10^3/uL (0.0-0.2) Sodium Level 138 mmol/L (136-145) 140 mmol/L (136-145) Potassium Level 3.9 mmol/L (3.5-5.1) 3.9 mmol/L (3.5-5.1) Chloride Level 104 mmol/L (98-107) 105 mmol/L (98-107) Carbon Dioxide Level 25 mmol/L (21-32) 30 mmol/L (21-32) Anion Gap 9 (6-14) 5 (6-14) Blood Urea Nitrogen 17 mg/dL (8-26) 11 mg/dL (8-26) Creatinine 0.5 mg/dL (0.7-1.3) 0.6 mg/dL (0.7-1.3) Estimated GFR (Cockcroft-Gault) 178.2 144.4 BUN/Creatinine Ratio 34 (6-20) Glucose Level 160 mg/dL (70-99) 89 mg/dL (70-99) Lactic Acid Level 1.1 mmol/L (0.4-2.0) Calcium Level 8.8 mg/dL (8.5-10.1) 8.4 mg/dL (8.5-10.1) Magnesium Level 1.7 mg/dL (1.8-2.4) Iron Level 63 ug/dL (65-175) Total Iron Binding Capacity 269 ug/dL (250-450) Iron Saturation 23 % (15-34) Total Bilirubin 0.6 mg/dL (0.2-1.0) Aspartate Amino Transf (AST/SGOT) 32 U/L (15-37) Alanine Aminotransferase (ALT/SGPT) 36 U/L (16-63) Alkaline Phosphatase 83 U/L (46-116) C-Reactive Protein, Quantitative 15.6 mg/L (0-3.3) Total Protein 7.7 g/dL (6.4-8.2) Albumin 3.2 g/dL (3.4-5.0) Albumin/Globulin Ratio 0.7 (1.0-1.7) Thyroid Stimulating Hormone (TSH) 1.315 uIU/mL (0.358-3.74) Glucose (Fingerstick) 178 mg/dL (70-99) 181 mg/dL (70-99) Test 07/18/20 07:30 SARS-CoV-2 Antigen (Rapid) Negative (NEGATIVE) Micro Impression: No right lower extremity arterial hemodynamic stenosis identified. No significant plaque seen. Impression: Degenerative changes are moderately advanced for age. No fracture or bone obstruction. Consider further imaging if osteomyelitis is a concern. Objective Assessment R foot wound Dm Yeast Neuropathy Plan Plan of Care Cont vanc and zosyn Fluconazole BMP in am Surgery today Thank you # [phone] DI BETANCUR MD Jul 18, 2020 10:28
--- NOTE | 2020-07-18 11:03 | CONS ---
DATE OF CONSULTATION: 07/18/2020 INFECTIOUS DISEASE CONSULTATION PATIENT'S ROOM: 516. REQUESTING PHYSICIAN: Gigi Willard MD REASON FOR CONSULTATION: Diabetic foot. HISTORY OF PRESENT ILLNESS: The patient is a pleasant 45-year-old gentleman with a history of diabetes, peripheral neuropathy, who states on the bottom of his right foot about a month or so ago, he developed a small wound. He is uncertain how this happened. He has not had any new shoes. He typically wears socks and shoes. He does not walk around in bare feet. Denies any punctures or wounds. He states about 2-3 weeks ago, it began to worsen. He states he has been soaking his foot using some Epsom salts, has not taken any antibiotics, but did make an appointment with his analyst geochemical prospecting yesterday because it began to become a little bit more painful and swollen and he subsequently was sent to the Emergency Room on the , he had a white count of 5.1. He has been afebrile since presentation, underwent an x-ray of his foot that showed degenerative changes, moderately advanced for age. No fracture or bone obstruction. He also underwent an arterial Doppler, showed no right lower extremity arterial hemodynamic stenosis. He was placed on vancomycin and Zosyn. He has been evaluated by Orthopedics and is going to go to surgery today for debridement. Currently, he is sitting upright in bed. He denies fevers, chills, sweats. He has no headaches. He has no sinus issues, sore throat, cough or chest pain. Denies nausea, vomiting, diarrhea, constipation or dysuria. Denies any trauma, no rashes. PAST MEDICAL HISTORY: Positive for hypertension, diabetes, peripheral neuropathy. Denies any previous surgeries. REVIEW OF SYSTEMS: Otherwise negative. ALLERGIES: No known drug allergies. SOCIAL HISTORY: He denies any tobacco abuse currently. Apparently, he had quit. He denies any other substance abuse. 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 FAMILY HISTORY: Positive for diabetes, hypertension. CURRENT MEDICATIONS: Include vancomycin, Zosyn, Colace, Neurontin, glipizide, insulin, Prinivil, Ultram. PHYSICAL EXAMINATION: VITAL SIGNS: Temperature 98, pulse 69, respirations 18, blood pressure 160/94, satting 99% on room air. CONSTITUTIONAL: He is a very pleasant gentleman. He is cooperative. He is in no acute distress. He is lying in bed. HEENT: Pupils equal and reactive. He has normal conjunctivae. Oral cavity, pharynx was clear. NECK: Supple, no JVD. His facial area had some erythema, but he states he has been out in the sun. LUNGS: Clear to auscultation. HEART: S1, S2. ABDOMEN: Soft, nontender, no guarding, no rebound. EXTREMITIES: Without clubbing, cyanosis. His right lower extremity has trace to 1+ edema on the bottom plantar aspect of the right foot. He has got an open wound in the fifth metatarsal and around the metatarsal heads. There is no gross odor. He does have a small open wound that does not track down to the bone. He does have some warmth associated with it and a slight odor. Also, has onychomycosis and yeast. SKIN: Otherwise, warm to touch. He has no rashes. He has a tattoo on his right lower extremity. NEUROLOGIC: Nonfocal, does have neuropathy. PSYCHIATRIC: Affect is pleasant. LABORATORY VALUES: White count 5.1, hemoglobin 15, platelets of 137, neutrophils 71, lymphs are 16. Creatinine is 0.6, glucose of 89. Normal liver function study tests. CRP was 15.6. IMPRESSION: 1. Right foot wound. 2. Diabetes. 3. Seizures. 4. Neuropathy. RECOMMENDATIONS: Continue the vancomycin and Zosyn. We will add fluconazole and will get a BMP in the morning. He is going to have surgery today. Thank you for allowing me to participate in the patient's care. Should you have further questions, please do not hesitate to contact me. DI BETANCUR MD DR: ALKA/yury JOB#: [id number] / [id number] CRISTIANO
[2020-07-18] MEDS ORDERED: IV RINGERS,LACTATED 1000ML 1,000 ML IV SCH (11:14)
[2020-07-18] MEDS ORDERED: MORPHINE SULFATE 2 MG/ML VIAL. IV PRN (11:15)
[2020-07-18] MEDS ORDERED: HYDROmorphone 2 MG/ML VIAL IV PRN (11:15)
[2020-07-18] MEDS ORDERED: PROCHLORPERAZINE 10 MG/2 ML VIAL. IV PRN (11:15)
[2020-07-18] MEDS ORDERED: INSULIN LISPRO 100 UNIT/ML 3ML VIAL for OP,RR ONLY. SQ PRN (11:15)
[2020-07-18] MEDS ORDERED: fentaNYL PF VIAL 100 MCG/2 ML VIAL IV PRN ×2 (11:15)
[2020-07-18] MEDS ORDERED: BUPIVACAINE MPF 0.5% 30 ML VIAL. ONE (11:27)
[2020-07-18] MEDS ORDERED: LIDOCAINE 1% PF 30 ML VIAL. ONE (11:27)
[2020-07-18] MEDS ORDERED: PROPOFOL 10 MG/ML (20ML) VIAL. IV ONE (11:28)
[2020-07-18] MEDS ORDERED: ONDANSETRON PF 4 MG/2 ML VIAL. ONE (11:28)
[2020-07-18] MEDS ORDERED: LIDOCAINE 2% PF 5 ML VIAL. ONE (11:28)
[2020-07-18] MEDS ORDERED: DEXAMETHASONE SOD PHOS 20 MG/5 ML VIAL. ONE (11:28)
[2020-07-18] MEDS ORDERED: fentaNYL PF VIAL 100 MCG/2 ML VIAL ONE (11:29)
--- NOTE | 2020-07-18 12:25 | PDOC4 ---
Operative Note Operative Note Date of procedure: 07/18/2020 Surgeon: James Triplett Preoperative diagnosis: Right foot wounds, diabetic foot ulcers Postoperative diagnosis: Partial-thickness wounds at plantar foot Full-thickness wound down to bone at lateral column of foot Procedure performed: Irrigation and debridement down to bone of diabetic foot ulcer Anesthesia: General Findings: Partial-thickness wounds on plantar foot, the lateral forefoot wound went down to bone. No obvious gross purulence present. Tourniquet time: None Blood loss: 10 mL Reason for procedure: Patient is a 45-year-old gentleman with history of diabetes who developed foot wounds recently. Please see my consult note for further details. We had a discussion of the risks, benefits, and alternatives and he wished to proceed. Description of procedure: Patient was greeted in the preoperative area by myself the correct extremity was verified and marked. He was taken the operative suite, maintained on a scheduled antibiotics. Once in the operating room, he was transferred gently supine to the operating table and secured bed with all pressure points padded. He underwent successful induction of general anesthetic. Nonsterile tourniquet was secured in place to his right upper thigh but not used for this case. The right lower extremity was prepped and draped in the usual sterile fashion including Betadine paint. I then began the procedure by conducting her standard preoperative timeout. I then used a rondure to debride the callus overlying all these wounds with above-noted findings. After debriding the callus I used the rondure to debride the lateral foot wound down to bone. After this, I irrigated these areas out with 2000 mL of sterile fluid. I then placed Xeroform and sterile gauze over the plantar foot wounds and I packed the lateral wound with aqua cell. I then wrapped abundant soft roll around his foot and heel followed by a very loose Tj wrap. He was then awake from anesthesia, and he tolerated surgery well. No complications. At the inclusion, he was transferred on spine to the hospital bed and taken to the PACU in a stable and extubated condition. Postoperative plan is to allow weightbearing through his heel. Given the depth of his lateral wound, I would recommend antibiotics as per infectious disease. Wound care will also see and follow him. JAMES TRIPLETT II, MD Jul 18, 2020 12:25
[2020-07-18] MEDS: FLUCONAZOLE 100 MG TABLET. PO SCH (14:19)
[2020-07-18] MEDS: GABAPENTIN 100 MG CAPSULE. PO SCH ×2 (14:19→21:18)
[2020-07-18] MEDS: LISINOPRIL 20 MG TABLET PO SCH (14:20)
--- NOTE | 2020-07-18 17:37 | NUR ---
SW following. Spoke with RN and reviewed chart. Pt from home with roommate. Met with pt who stated no concerns about returning home at discharge. Pt on room air, IV Vancomycin. Pt works at a restaurant. SW following as needed.
[2020-07-18] MEDS: traMADol 50 MG TABLET PO PRN (21:18)
[2020-07-18] MEDS: INSULIN GLARGINE SYRINGE. SQ SCH (21:19)
[2020-07-18 21:21] LABS: VANC TR 10.9 mcg/mL (10.0-20.0)
[2020-07-18] MEDS: VANCOMYCIN PER PHARMACY MC PRN (21:54)
--- NOTE | 2020-07-18 21:55 | NUR ---
Pharmacy Vancomycin Dosing Note S: Consulted to monitor and dose vancomycin started 07/17/20. O: SISSY JORDAN is a 45 year old M with Cellulitis, . Other Antibiotics: zosyn LABS: Last BUN: 11 Last Creatinine: 0.6 Creatinine Clearance: >100 mL/min Last WBC: 5.1 Last Procalcitonin: Tmax (past 24 hours): 98.5 Microbiology: I/O: 1810/1000 Drug Levels: Last Trough level: 10.9 on 07/18/20 at 2045 Last dose given at Vancomycin Dosing: Dosing Weight: Actual Target Trough: 10-20 A: Based on: Trough, Actual Wt and CrCl P: 1. 07/18/20 2100 Continue Vancomycin 1250 mg IV q8h 2. Follow up Trough level in 5 to 7 days as needed 3. Pharmacy will continue to monitor, follow and adjust therapy as needed. ALEJANDRINA SALINAS RPH, 07/18/[id number] Signed: 07/18/20 at 215 by ALEJANDRINA SALINAS RPH PHA
[2020-07-19 03:03] VITALS: BP 136/79
[2020-07-19] MEDS: PIPERACILLIN/TAZOBACTAM 3.375 GM in IV NORMAL SALINE 50ML 50 ML IV SCH ×3 (04:54→18:15)
[2020-07-19] MEDS: VANCOMYCIN 1.25 GM in IV NORMAL SALINE 250ML 250 ML IV SCH (05:07)
[2020-07-19 07:00] VITALS: BP 159/91
--- NOTE | 2020-07-19 07:38 | PDOC ---
Infectious Disease Note Subjective Subjective No Pain/F/c/s/N/v/D/SOA/rash ROS ROS o/w neg Vital Sign Vital Signs Vital Signs Date Time Temp Pulse Resp B/P (MAP) Pulse Ox O2 Delivery O2 Flow Rate FiO2 07/19/20 03:03 98.1 69 20 136/79 (98) 98 Room Air 98.1 07/18/20 12:11 8 Physical Exam PHYSICAL EXAM CONSTITUTIONAL: He is a very pleasant gentleman. He is cooperative. He is in no acute distress. He is lying in bed. HEENT: Pupils equal and reactive. He has normal conjunctivae. Oral cavity, pharynx was clear. NECK: Supple, no JVD. His facial area had some erythema, but he states he has been out in the sun. LUNGS: Clear to auscultation. HEART: S1, S2. ABDOMEN: Soft, nontender, no guarding, no rebound. EXTREMITIES: Without clubbing, cyanosis. His right lower extremity is dressed. Trace warmth Also, has onychomycosis and yeast. SKIN: Otherwise, warm to touch. He has no rashes. He has a tattoo on his right lower extremity. NEUROLOGIC: Nonfocal, does have neuropathy. PSYCHIATRIC: Affect is pleasant. Labs Lab Laboratory Tests Test 07/18/20 07:51 07/18/20 12:33 07/18/20 17:33 07/18/20 20:20 Glucose (Fingerstick) 94 mg/dL (70-99) 106 mg/dL (70-99) 253 mg/dL (70-99) 272 mg/dL (70-99) Test 07/18/20 20:45 Vancomycin Level Trough 10.9 mcg/mL (10.0-20.0) Vancomycin Last Dose Date 07/18/20 Vancomycin Last Dose Time 1300 Micro Impression: No right lower extremity arterial hemodynamic stenosis identified. No significant plaque seen. Impression: Degenerative changes are moderately advanced for age. No fracture or bone obstruction. Consider further imaging if osteomyelitis is a concern. Objective Assessment R foot wound S/p Procedure performed: Irrigation and debridement down to bone of diabetic foot ulcer 07/18 Dm Yeast Neuropathy S/p Dexamethasone 07/18 Plan Plan of Care Discont vanc given high dose and frequency and Dose Dapto and cont zosyn Cont Fluconazole BMP in am PICC line today -discussed need for IV treatment with bone involvement D/w Dr. Oleg BETANCUR,DI Watson MD Jul 19, 2020 07:38
[2020-07-19 07:48] LABS: CALCIUM 8.6 mg/dL (8.5-10.1); CREATININE 0.6 mg/dL (0.7-1.3); GFR 144.4; POTASSIUM 3.8 mmol/L (3.5-5.1)
[2020-07-19] MEDS: glipiZIDE ER 2.5 MG TAB.ER.24 PO SCH (08:08)
[2020-07-19] MEDS: FLUCONAZOLE 100 MG TABLET. PO SCH (08:09)
[2020-07-19] MEDS: GABAPENTIN 100 MG CAPSULE. PO SCH ×3 (08:09→22:27)
[2020-07-19] MEDS: LISINOPRIL 20 MG TABLET PO SCH (08:11)
[2020-07-19] MEDS: INSULIN LISPRO 300 UNITS/3 ML VIAL. SQ SCH ×4 (08:17→21:00)
--- NOTE | 2020-07-19 08:32 | PDOC ---
[facility] PROGRESS NOTE Date of Service DOS: DATE: 07/19/20 TIME: 08:30 Chief Complaint Chief Complaint A/P: Right foot with diabetic ulcer - open wound, foul smelling, no vascular compromise. Bone visible in wound, plan for PICC and longer term outpatient antibiotics, dapto, zosyn. Right foot and leg cellulitis - failed outpatient therapy with podiatry, antibiotics as above DM2 - A1c 7, will place on sliding scale while inpatient Diabetic polyneuropathy - cont home gabapentin HTN - cont home meds FEN - ADA diet PPX - lovenox FULL CODE Dispo - inpatient for diabetic ulcer failing outpatient therapy History of Present Illness History of Present Illness Mr Álvarez is a 45 yo M w/ PMHx HTN, DM2, diabetic peripheral neuropathy who presents to the emergency department with complaints of wound to the bottom of his right foot that began a month ago. Patient states he went to his canvas cutter today who told him that he should go to the hospital for treatment. He denies any fever, cough, body aches, nausea, vomiting, diarrhea, shortness of breath, or abdominal pain. Patient states that his right leg has been swollen and now has some redness and warmth in his foot and lower leg. He works on his feet all day at [employer], notes that his A1c was 7 approximately 2 months ago. He does have regular podiatry follow-up and was actually referred to the wound clinic at [facility] today but was prompted to go to the hospital instead by his canvas cutter. Right foot XR with calcific densities overlying the anterior margin of the Achilles tendon shadow on the lateral view noted. Spurring involving the mid foot noted. no osteomyelitis changes. Labs significant for WBC 5.1, Hb 15 with MCV 78, platelets 132, NA 138, K3.9, BUN 12, CR 0.5, lactate 1.1, magnesium 1.7, albumin 3.2, glucose 160. 10/: To OR. Partial-thickness wounds on plantar foot, the lateral forefoot wound went down to bone. No obvious gross purulence present. Afebrile, labs stable. He is amenable to PICC placement today and wants to start ambulating. Vitals/I&O Vitals/I&O: Vital Signs Date Time Temp Pulse Resp B/P (MAP) Pulse Ox O2 Delivery O2 Flow Rate FiO2 07/19/20 08:11 69 136/79 07/19/20 03:03 98.1 20 98 Room Air 98.1 07/18/20 12:11 8 I & O 07/18/20 07/18/20 07/19/20 15:00 23:00 07:00 Intake Total 650 ml 300 ml 600 ml Output Total 760 ml 2000 ml Balance -110 ml 300 ml -1400 ml Physical Exam Physical Exam: CONSTITUTIONAL: He is a very pleasant gentleman. He is cooperative. He is in no acute distress. He is lying in bed. HEENT: Pupils equal and reactive. He has normal conjunctivae. Oral cavity, pharynx was clear. NECK: Supple, no JVD. His facial area had some erythema, but he states he has been out in the sun. LUNGS: Clear to auscultation. HEART: S1, S2. ABDOMEN: Soft, nontender, no guarding, no rebound. EXTREMITIES: Without clubbing, cyanosis. His right lower extremity is dressed. Trace warmth Also, has onychomycosis and yeast. SKIN: Otherwise, warm to touch. He has no rashes. He has a tattoo on his right lower extremity. NEUROLOGIC: Nonfocal, does have neuropathy. PSYCHIATRIC: Affect is pleasant. General: Alert, Oriented X3, No acute distress Heart: Regular rate Abdomen: Soft, No tenderness Extremities: Normal pulses, Other (He has right ankle and foot edema.) Skin: No rashes Labs Labs: Laboratory Tests Test 07/18/20 12:33 07/18/20 17:33 07/18/20 20:20 07/18/20 20:45 Glucose (Fingerstick) 106 mg/dL (70-99) 253 mg/dL (70-99) 272 mg/dL (70-99) Vancomycin Level Trough 10.9 mcg/mL (10.0-20.0) Vancomycin Last Dose Date 07/18/20 Vancomycin Last Dose Time 1300 Test 07/19/20 06:10 07/19/20 07:41 Sodium Level 137 mmol/L (136-145) Potassium Level 3.8 mmol/L (3.5-5.1) Chloride Level 104 mmol/L (98-107) Carbon Dioxide Level 28 mmol/L (21-32) Anion Gap 5 (6-14) Blood Urea Nitrogen 11 mg/dL (8-26) Creatinine 0.6 mg/dL (0.7-1.3) Estimated GFR (Cockcroft-Gault) 144.4 Glucose Level 205 mg/dL (70-99) Calcium Level 8.6 mg/dL (8.5-10.1) Glucose (Fingerstick) 177 mg/dL (70-99) Assessment and Plan Assessmemt and Plan Problems Medical Problems: (1) Unspecified open wound, right foot, initial encounter Status: Acute Comment Review of Relevant I have reviewed the following items jayden (where applicable) has been applied. Medications: Current Medications Medications (Trade) Dose Ordered Sig/Mago Route PRN Reason Start Time Stop Time Status Last Admin Dose Admin Vancomycin HCl (Vancomycin Trough Level) 1 each 1X ONCE MC 07/18/20 20:30 07/18/20 20:31 DC 07/18/20 20:30 Gabapentin (Neurontin) 100 mg TID PO 07/18/20 14:00 07/19/20 08:09 Lisinopril (Prinivil) 20 mg DAILY PO 07/18/20 09:30 07/19/20 08:11 Glipizide (Glucotrol Er) 5 mg DAILY08 PO 07/18/20 09:30 07/19/20 08:08 Insulin Glargine (Lantus Syringe) 27 unit QHS SQ 07/18/20 21:00 07/18/20 21:19 Fluconazole (Diflucan) 200 mg DAILY PO 07/18/20 10:30 07/19/20 08:09 Ringer's Solution 1,000 ml @ 30 mls/hr Q24H IV 07/18/20 11:14 07/18/20 23:13 DC 07/18/20 11:00 Justifications for Admission Other Justification LIZBETH MARTIN MD Jul 19, 2020 08:32
--- NOTE | 2020-07-19 08:56 | PDOC ---
ORTHO PROGRESS NOTES DATE: 07/19/20 TIME: 08:54 Subjective Not much pain today. He has questions about his prognosis Vitals Vital Signs Date Time Temp Pulse Resp B/P (MAP) Pulse Ox O2 Delivery O2 Flow Rate FiO2 07/19/20 08:11 69 136/79 07/19/20 07:00 97.3 18 98 Room Air 97.3 07/18/20 12:11 8 Labs Laboratory Tests Test 07/17/20 13:48 07/17/20 16:38 07/17/20 20:36 07/18/20 06:30 White Blood Count 5.1 x10^3/uL (4.0-11.0) Red Blood Count 5.50 x10^6/uL (4.30-5.70) Hemoglobin 15.0 g/dL (13.0-17.5) Hematocrit 42.9 % (39.0-53.0) Mean Corpuscular Volume 78 fL (79-100) Mean Corpuscular Hemoglobin 27 pg (25-35) Mean Corpuscular Hemoglobin Concent 35 g/dL (31-37) Red Cell Distribution Width 13.1 % (11.5-14.5) Platelet Count 137 x10^3/uL (140-400) Neutrophils (%) (Auto) 71 % (31-73) Lymphocytes (%) (Auto) 16 % (24-48) Monocytes (%) (Auto) 11 % (0-9) Eosinophils (%) (Auto) 1 % (0-3) Basophils (%) (Auto) 1 % (0-3) Neutrophils # (Auto) 3.6 x10^3/uL (1.8-7.7) Lymphocytes # (Auto) 0.8 x10^3/uL (1.0-4.8) Monocytes # (Auto) 0.6 x10^3/uL (0.0-1.1) Eosinophils # (Auto) 0.1 x10^3/uL (0.0-0.7) Basophils # (Auto) 0.0 x10^3/uL (0.0-0.2) Sodium Level 138 mmol/L (136-145) 140 mmol/L (136-145) Potassium Level 3.9 mmol/L (3.5-5.1) 3.9 mmol/L (3.5-5.1) Chloride Level 104 mmol/L (98-107) 105 mmol/L (98-107) Carbon Dioxide Level 25 mmol/L (21-32) 30 mmol/L (21-32) Anion Gap 9 (6-14) 5 (6-14) Blood Urea Nitrogen 17 mg/dL (8-26) 11 mg/dL (8-26) Creatinine 0.5 mg/dL (0.7-1.3) 0.6 mg/dL (0.7-1.3) Estimated GFR (Cockcroft-Gault) 178.2 144.4 BUN/Creatinine Ratio 34 (6-20) Glucose Level 160 mg/dL (70-99) 89 mg/dL (70-99) Lactic Acid Level 1.1 mmol/L (0.4-2.0) Calcium Level 8.8 mg/dL (8.5-10.1) 8.4 mg/dL (8.5-10.1) Magnesium Level 1.7 mg/dL (1.8-2.4) Iron Level 63 ug/dL (65-175) Total Iron Binding Capacity 269 ug/dL (250-450) Iron Saturation 23 % (15-34) Total Bilirubin 0.6 mg/dL (0.2-1.0) Aspartate Amino Transf (AST/SGOT) 32 U/L (15-37) Alanine Aminotransferase (ALT/SGPT) 36 U/L (16-63) Alkaline Phosphatase 83 U/L (46-116) C-Reactive Protein, Quantitative 15.6 mg/L (0-3.3) Total Protein 7.7 g/dL (6.4-8.2) Albumin 3.2 g/dL (3.4-5.0) Albumin/Globulin Ratio 0.7 (1.0-1.7) Thyroid Stimulating Hormone (TSH) 1.315 uIU/mL (0.358-3.74) Glucose (Fingerstick) 178 mg/dL (70-99) 181 mg/dL (70-99) Test 07/18/20 07:30 07/18/20 07:51 07/18/20 12:33 07/18/20 17:33 Coronavirus (PCR) Not detected (Not Detected) SARS-CoV-2 Antigen (Rapid) Negative (NEGATIVE) Glucose (Fingerstick) 94 mg/dL (70-99) 106 mg/dL (70-99) 253 mg/dL (70-99) Test 07/18/20 20:20 07/18/20 20:45 07/19/20 06:10 07/19/20 07:41 Glucose (Fingerstick) 272 mg/dL (70-99) 177 mg/dL (70-99) Vancomycin Level Trough 10.9 mcg/mL (10.0-20.0) Vancomycin Last Dose Date 07/18/20 Vancomycin Last Dose Time 1300 Sodium Level 137 mmol/L (136-145) Potassium Level 3.8 mmol/L (3.5-5.1) Chloride Level 104 mmol/L (98-107) Carbon Dioxide Level 28 mmol/L (21-32) Anion Gap 5 (6-14) Blood Urea Nitrogen 11 mg/dL (8-26) Creatinine 0.6 mg/dL (0.7-1.3) Estimated GFR (Cockcroft-Gault) 144.4 Glucose Level 205 mg/dL (70-99) Calcium Level 8.6 mg/dL (8.5-10.1) Laboratory Tests Test 07/18/20 12:33 07/18/20 17:33 07/18/20 20:20 07/18/20 20:45 Glucose (Fingerstick) 106 mg/dL (70-99) 253 mg/dL (70-99) 272 mg/dL (70-99) Vancomycin Level Trough 10.9 mcg/mL (10.0-20.0) Vancomycin Last Dose Date 07/18/20 Vancomycin Last Dose Time 1300 Test 07/19/20 06:10 07/19/20 07:41 Sodium Level 137 mmol/L (136-145) Potassium Level 3.8 mmol/L (3.5-5.1) Chloride Level 104 mmol/L (98-107) Carbon Dioxide Level 28 mmol/L (21-32) Anion Gap 5 (6-14) Blood Urea Nitrogen 11 mg/dL (8-26) Creatinine 0.6 mg/dL (0.7-1.3) Estimated GFR (Cockcroft-Gault) 144.4 Glucose Level 205 mg/dL (70-99) Calcium Level 8.6 mg/dL (8.5-10.1) Glucose (Fingerstick) 177 mg/dL (70-99) Notes He is awake and alert in bed. Expected amount of drainage is present at his dressing. Assessment and Plan I did discuss his care today with infectious disease and hospitalist. I discussed with him the importance of good blood sugar control and offloading. He should follow-up with wound care at discharge. SAUL TRIPLETT II, MD Jul 19, 2020 08:56
[2020-07-19] MEDS: DAPTOmycin (GENERIC) IVPB 450 MG in IV NORMAL SALINE 50ML 50 ML IV SCH (09:52)
[2020-07-19] MEDS ORDERED: LIDOCAINE WITH 8.4% SOD BICARB 3 ML DISP.SYRIN. ONE (09:53)
[2020-07-19 11:00] VITALS: BP 177/92
[2020-07-19] MEDS ORDERED: LIDOCAINE WITH 8.4% SOD BICARB 3 ML DISP.SYRIN. INJ ONE (13:15)
--- NOTE | 2020-07-19 13:40 | RAD ---
Procedure: Upper extremity PICC line placement Clinical Indication: Adult male requiring central venous access. Sedation: Local anesthesia only was provided Antibiotics: None Fluoro Time: 0.4 minutes, images: 1 Contrast: None Sterility: All elements of maximal sterile barrier technique including the use of a cap, mask, sterile gown, sterile gloves, large sterile sheet, appropriate hand hygiene, and 2% chlorhexidine for cutaneous antisepsis (or acceptable alternative antiseptic per current guidelines) were followed for this procedure. Consent: The procedure was explained in its entirety to the patient or the patients designated service liaison representative by a member of the treatment team, including a discussion of the risks, benefits and commonly accepted alternatives to the procedure, as well as the expected consequences of no therapy whatsoever. Discussion of the risks included, but was not limited to, those that are most frequent and those that are rare but possibly severe or life-threatening, as well as the possibility of unforeseen complications. Technique and Findings: Following informed consent, the patient was prepped and draped in the usual sterile fashion. Ultrasound interrogation of the right arm revealed patency and compressibility of the right basilic vein. A hard copy ultrasound image was recorded. 1% Lidocaine was used to achieve local anesthesia and a 21-gauge micropuncture needle was used to gain access to the targeted vein. The needle was exchanged over wire for a 5 Chinese peel-away sheath which was used to deploy a PICC line under fluoroscopic guidance such that the distal tip resided at the cavoatrial junction. The catheter flushed and aspirated with ease and was sutured to the skin. Complications: No immediate Impression: 1. Ultrasound guided PICC line placement as described.
[2020-07-19 15:00] VITALS: BP 148/78
--- NOTE | 2020-07-19 16:00 | NUR ---
Wound/Ostomy Care: Wound Type/Assessment: Patient seen per wound care regarding two DFU's to the right plantar foot. Orders for wound vac placement to the right lateral plantar foot DFU. Patient is s/p I&D on 07/18/20 to the right medial plantar and right lateral plantar. Dressing removed and wounds cleansed, assessed, measured, and photographed. Treatment Recommendations/Plan: Skin prepped for wound vac placement, one piece of foam placed to the lateral plantar wound, the vac is tracked up the lateral lower leg, and a good seal maintained at 125mmHg continuous. Contact layer and foam dressing to the medial plantar wound, with drape over the dressing. Education provided: Patient educated on dressing changes, vac alarms and concerns. Patient also educated on offloading. Offloading surface/device: Patient is weight bearing through heel only. Recommended Referrals/Tests: N/A Discharge Recommendations for dressings: Continue current treatment plan. Bed lowered and call light in reach. Patient will be seen on Wednesday for wound vac dressing change.
--- NOTE | 2020-07-19 17:29 | NUR ---
Patient underwent PICC line placement this afternoon, no complications noted.
--- NOTE | 2020-07-19 17:59 | NUR ---
SW following. Spoke with RN and reviewed chart. Pt remains on room air and IV abx. PICC Placed today. LUIS phoned and faxed patient clinicals to [place] with [facility], , (fax) home infusion for IV abx on discharge. Patient choice of vendor form completed. Pt added to potential weekend discharge list.
[2020-07-19 19:00] VITALS: BP 141/76
[2020-07-19] MEDS: LACTOBACILLUS RHAMNOSUS GG 1 CAPSULE. PO SCH (22:27)
[2020-07-19] MEDS: INSULIN GLARGINE SYRINGE. SQ SCH (22:31)
[2020-07-19 23:00] VITALS: BP 130/74
[2020-07-20] MEDS: PIPERACILLIN/TAZOBACTAM 3.375 GM in IV NORMAL SALINE 50ML 50 ML IV SCH ×4 (00:33→17:00)
[2020-07-20 03:00] VITALS: BP 123/66
[2020-07-20 07:00] VITALS: BP 147/87
[2020-07-20] MEDS: INSULIN LISPRO 300 UNITS/3 ML VIAL. SQ SCH ×4 (07:56→21:22)
--- NOTE | 2020-07-20 08:54 | PDOC ---
[employer] PROGRESS NOTE Date of Service DOS: DATE: 07/20/20 TIME: 08:53 Chief Complaint Chief Complaint A/P: Right foot with diabetic ulcer - open wound, foul smelling, no vascular compromise. Bone visible in wound, plan for PICC and longer term outpatient antibiotics, dapto, zosyn. Right foot and leg cellulitis - failed outpatient therapy with podiatry, antibiotics as above DM2 - A1c 7, will place on sliding scale while inpatient Diabetic polyneuropathy - cont home gabapentin HTN - cont home meds FEN - ADA diet PPX - lovenox FULL CODE Dispo - inpatient for diabetic ulcer failing outpatient therapy History of Present Illness History of Present Illness Mr Álvarez is a 45 yo M w/ PMHx HTN, DM2, diabetic peripheral neuropathy who presents to the emergency department with complaints of wound to the bottom of his right foot that began a month ago. Patient states he went to his street commissioner today who told him that he should go to the hospital for treatment. He denies any fever, cough, body aches, nausea, vomiting, diarrhea, shortness of breath, or abdominal pain. Patient states that his right leg has been swollen and now has some redness and warmth in his foot and lower leg. He works on his feet all day at [employer], notes that his A1c was 7 approximately 2 months ago. He does have regular podiatry follow-up and was actually referred to the wound clinic at [facility] today but was prompted to go to the hospital instead by his street commissioner. Right foot XR with calcific densities overlying the anterior margin of the Achilles tendon shadow on the lateral view noted. Spurring involving the mid foot noted. no osteomyelitis changes. Labs significant for WBC 5.1, Hb 15 with MCV 78, platelets 132, NA 138, K3.9, BUN 12, CR 0.5, lactate 1.1, magnesium 1.7, albumin 3.2, glucose 160. 10: To OR. Partial-thickness wounds on plantar foot, the lateral forefoot wound went down to bone. No obvious gross purulence present. 07/19: Afebrile, labs stable. S/p PICC placement today and wants to start ambulating. Afebrile. On daptomycin and Zosyn as well as fluconazole, awaiting operative cultures. Will need long-term antibiotics given bone involvement failing surgery. He is finding his PICC a bit irritating and having difficulty ambulating with his offloading shoe. Wound vac in place. Vitals/I&O Vitals/I&O: Vital Signs Date Time Temp Pulse Resp B/P (MAP) Pulse Ox O2 Delivery O2 Flow Rate FiO2 07/20/20 07:00 98.3 66 18 147/87 (107) 99 Room Air 98.3 I & O 07/19/20 07/19/20 07/20/20 15:00 23:00 07:00 Intake Total 120 ml 50 ml Output Total 800 ml Balance 120 ml -750 ml Physical Exam Physical Exam: CONSTITUTIONAL: He is a very pleasant gentleman. He is cooperative. He is in no acute distress. He is lying in bed. HEENT: Pupils equal and reactive. He has normal conjunctivae. Oral cavity, pharynx was clear. NECK: Supple, no JVD. His facial area had some erythema, but he states he has been out in the sun. LUNGS: Clear to auscultation. HEART: S1, S2. ABDOMEN: Soft, nontender, no guarding, no rebound. EXTREMITIES: Without clubbing, cyanosis. His right lower extremity is dressed. Trace warmth Also, has onychomycosis and yeast. SKIN: Otherwise, warm to touch. He has no rashes. He has a tattoo on his right lower extremity. NEUROLOGIC: Nonfocal, does have neuropathy. PSYCHIATRIC: Affect is pleasant. General: Alert, Oriented X3, No acute distress Heart: Regular rate Abdomen: Soft, No tenderness Extremities: Normal pulses, Other (He has right ankle and foot edema.) Skin: No rashes Labs Labs: Laboratory Tests Test 07/19/20 11:40 07/19/20 16:53 07/19/20 21:08 07/20/20 07:38 Glucose (Fingerstick) 162 mg/dL (70-99) 112 mg/dL (70-99) 150 mg/dL (70-99) 125 mg/dL (70-99) Assessment and Plan Assessmemt and Plan Problems Medical Problems: (1) Unspecified open wound, right foot, initial encounter Status: Acute Comment Review of Relevant I have reviewed the following items jayden (where applicable) has been applied. Medications: Current Medications Medications (Trade) Dose Ordered Sig/Mago Route PRN Reason Start Time Stop Time Status Last Admin Dose Admin Daptomycin 450 mg/ Sodium Chloride 50 ml @ 100 mls/hr Q24H IV 07/19/20 10:00 07/19/20 09:52 Lidocaine HCl (Buffered Lidocaine 1%) 6 ml 1X ONCE INJ 07/19/20 13:15 07/19/20 13:16 DC 07/19/20 13:26 Lactobacillus Rhamnosus (Culturelle) 1 cap BID PO 07/19/20 21:00 07/19/20 22:27 Justifications for Admission Other Justification LIZBETH MARTIN MD Jul 20, 2020 08:54
[2020-07-20] MEDS: glipiZIDE ER 2.5 MG TAB.ER.24 PO SCH (09:14)
[2020-07-20] MEDS: FLUCONAZOLE 100 MG TABLET. PO SCH (09:14)
[2020-07-20] MEDS: LISINOPRIL 20 MG TABLET PO SCH (09:14)
[2020-07-20] MEDS: LACTOBACILLUS RHAMNOSUS GG 1 CAPSULE. PO SCH ×2 (09:14→21:08)
[2020-07-20] MEDS: GABAPENTIN 100 MG CAPSULE. PO SCH ×3 (09:14→21:08)
[2020-07-20] MEDS: DAPTOmycin (GENERIC) IVPB 450 MG in IV NORMAL SALINE 50ML 50 ML IV SCH (09:15)
[2020-07-20 10:23] LABS: CALCIUM 8.8 mg/dL (8.5-10.1); CREATININE 0.8 mg/dL (0.7-1.3); GFR 103.6; POTASSIUM 4.3 mmol/L (3.5-5.1)
--- NOTE | 2020-07-20 11:05 | PDOC ---
Infectious Disease Note Subjective: Subjective No Pain/F/c/s/N/v/D/SOA/rash Vital Signs: Vital Signs Vital Signs Date Time Temp Pulse Resp B/P (MAP) Pulse Ox O2 Delivery O2 Flow Rate FiO2 07/20/20 09:14 66 147/87 07/20/20 07:00 98.3 18 99 Room Air 98.3 Physical Exam: PHYSICAL EXAM CONSTITUTIONAL: aox3 male in nad HEENT: Pupils equal and reactive. anicteric Oral cavity, pharynx was clear. NECK: Supple, no JVD. LUNGS: Clear to auscultation. HEART: S1, S2. ABDOMEN: Soft, nontender, no guarding, no rebound. EXTREMITIES: Without clubbing, cyanosis. His right lower extremity is dressed with wound vac in place. Trace warmth Also, has onychomycosis and yeast. SKIN: Otherwise, warm to touch. He has no rashes. He has a tattoo on his right lower extremity. NEUROLOGIC: Nonfocal, does have neuropathy. PSYCHIATRIC: Affect is pleasant. PICC line clean Medications: Inpatient Meds: Current Medications Medications (Trade) Dose Ordered Sig/Mago Start Time Stop Time Status Last Admin Dose Admin Acetaminophen (Tylenol) 650 mg PRN Q4HRS PRN 07/17/20 16:30 Bupivacaine HCl (Sensorcaine Mpf 0.5%) 30 ml STK-MED ONCE 07/18/20 11:27 07/18/20 11:28 DC Daptomycin 450 mg/ Sodium Chloride 50 ml @ 100 mls/hr Q24H 07/19/20 10:00 07/20/20 09:15 100 MLS/HR Dexamethasone Sodium Phosphate (Decadron) 20 mg STK-MED ONCE 07/18/20 11:28 07/18/20 11:28 DC Dextrose (Dextrose 50%-Water Syringe) 12.5 gm PRN Q15MIN PRN 07/17/20 16:30 Docusate Sodium (Colace) 100 mg PRN BID PRN 07/17/20 16:30 Fentanyl Citrate (Fentanyl 2ml Vial) 100 mcg STK-MED ONCE 07/18/20 11:29 07/18/20 11:29 DC Fluconazole (Diflucan) 200 mg DAILY 07/18/20 10:30 07/20/20 09:14 200 MG Gabapentin (Neurontin) 100 mg TID 07/18/20 14:00 07/20/20 09:14 100 MG Glipizide (Glucotrol Er) 5 mg DAILY08 07/18/20 09:30 07/20/20 09:14 5 MG Hydromorphone HCl (Dilaudid) 0.5 mg PRN Q10MIN PRN 07/18/20 11:15 07/19/20 11:14 DC Influenza Virus Vaccine Quadrival (Fluzone Quad Syringe) 0.5 ml ONCE ONCE 07/17/20 19:00 07/17/20 19:01 DC 07/17/20 20:06 0.5 ML Insulin Glargine (Lantus Syringe) 27 unit QHS 07/18/20 21:00 07/19/20 22:31 27 UNIT Insulin Human Lispro (HumaLOG VIAL for OP,RR ONLY) 0-10 units PRN Q1HR PRN 07/18/20 11:15 07/19/20 11:14 DC Insulin Human Lispro (HumaLOG) 0-7 UNITS TIDWMEALHC 07/17/20 17:00 07/19/20 12:14 3 UNITS Lactobacillus Rhamnosus (Culturelle) 1 cap BID 07/19/20 21:00 07/20/20 09:14 1 CAP Lidocaine HCl (Buffered Lidocaine 1%) 6 ml 1X ONCE 07/19/20 13:15 07/19/20 13:16 DC 07/19/20 13:26 2 ML Lidocaine HCl (Lidocaine Pf 2% Vial) 5 ml STK-MED ONCE 07/18/20 11:28 07/18/20 11:28 DC Lidocaine HCl (Xylocaine 1% Pf 30ml Vial) 30 ml STK-MED ONCE 07/18/20 11:27 07/18/20 11:27 DC Lisinopril (Prinivil) 20 mg DAILY 07/18/20 09:30 07/20/20 09:14 20 MG Lorazepam (Ativan) 0.5 mg PRN Q4HRS PRN 07/17/20 16:30 Magnesium Sulfate 50 ml @ 25 mls/hr 1X ONCE 07/17/20 15:15 07/17/20 17:14 DC 07/17/20 23:52 25 MLS/HR Morphine Sulfate (Morphine Sulfate) 1 mg PRN Q10MIN PRN 07/18/20 11:15 07/19/20 11:14 DC Ondansetron HCl (Zofran) 4 mg STK-MED ONCE 07/18/20 11:28 07/18/20 11:28 DC Piperacillin Sod/ Tazobactam Sod 3.375 gm/Sodium Chloride 50 ml @ 100 mls/hr Q6HRS 07/17/20 18:00 07/20/20 06:20 100 MLS/HR Prochlorperazine Edisylate (Compazine) 5 mg PACU PRN PRN 07/18/20 11:15 07/19/20 11:14 DC Propofol (Diprivan) 200 mg STK-MED ONCE 07/18/20 11:28 07/18/20 11:28 DC Ringer's Solution 1,000 ml @ 30 mls/hr Q24H 07/18/20 11:14 07/18/20 23:13 DC 07/18/20 11:00 30 MLS/HR Tramadol HCl (Ultram) 50 mg PRN Q6HRS PRN 07/17/20 16:30 07/18/20 21:18 50 MG Vancomycin HCl (Vanco Per Pharmacy) 1 each PRN DAILY PRN 07/17/20 16:30 07/19/20 08:20 DC 07/18/20 21:54 1 EACH Vancomycin HCl (Vancomycin Trough Level) 1 each 1X ONCE 07/18/20 20:30 07/18/20 20:31 DC 07/18/20 20:30 1 EACH Vancomycin HCl 1.25 gm/Sodium Chloride 250 ml @ 167 mls/hr Q8H 07/18/20 05:00 07/19/20 08:20 DC 07/19/20 05:07 167 MLS/HR Vancomycin HCl 2 gm/Sodium Chloride 500 ml @ 250 mls/hr 1X ONCE 07/17/20 18:30 07/17/20 20:29 DC 07/17/20 21:09 250 MLS/HR Zolpidem Tartrate (Ambien) 5 mg PRN QHS PRN 07/17/20 16:30 Labs: Lab Laboratory Tests Test 07/19/20 11:40 07/19/20 16:53 07/19/20 21:08 07/20/20 07:38 Glucose (Fingerstick) 162 mg/dL (70-99) 112 mg/dL (70-99) 150 mg/dL (70-99) 125 mg/dL (70-99) Test 07/20/20 09:30 Sodium Level 139 mmol/L (136-145) Potassium Level 4.3 mmol/L (3.5-5.1) Chloride Level 103 mmol/L (98-107) Carbon Dioxide Level 33 mmol/L (21-32) Anion Gap 3 (6-14) Blood Urea Nitrogen 11 mg/dL (8-26) Creatinine 0.8 mg/dL (0.7-1.3) Estimated GFR (Cockcroft-Gault) 103.6 Glucose Level 196 mg/dL (70-99) Calcium Level 8.8 mg/dL (8.5-10.1) Creatine Kinase 31 U/L (39-308) Objective: Assessment: Rt diab foot wound S/p Procedure performed: Irrigation and debridement down to bone of diabetic foot ulcer 07/18 cult not available BC neg Dm Yeast Neuropathy S/p Dexamethasone 07/18 Plan: Plan of Care cont Dapto and zosyn Cont Fluconazole local wound care as directed VERÓNICA LOWRY MD Jul 20, 2020 11:05
[2020-07-20 11:07] VITALS: BP 168/92
[2020-07-20 15:04] VITALS: BP 157/89
[2020-07-20 19:00] VITALS: BP 174/93
[2020-07-20] MEDS: INSULIN GLARGINE SYRINGE. SQ SCH (21:19)
[2020-07-20 23:00] VITALS: BP 138/85
[2020-07-21] MEDS: PIPERACILLIN/TAZOBACTAM 3.375 GM in IV NORMAL SALINE 50ML 50 ML IV SCH ×5 (00:12→23:04)
[2020-07-21 03:00] VITALS: BP 136/77
[2020-07-21 07:37] VITALS: BP 153/87
[2020-07-21] MEDS: INSULIN LISPRO 300 UNITS/3 ML VIAL. SQ SCH ×4 (07:49→21:00)
--- NOTE | 2020-07-21 08:10 | PDOC ---
[employer] PROGRESS NOTE Date of Service DOS: DATE: 07/21/20 TIME: 08:09 Chief Complaint Chief Complaint A/P: Right foot with diabetic ulcer - open wound, foul smelling, no vascular compromise. Bone visible in wound, plan for PICC and longer term outpatient antibiotics, dapto, zosyn. Right foot and leg cellulitis - failed outpatient therapy with podiatry, antibiotics as above DM2 - A1c 7, will place on sliding scale while inpatient Diabetic polyneuropathy - cont home gabapentin HTN - cont home meds FEN - ADA diet PPX - lovenox FULL CODE Dispo - inpatient for diabetic ulcer failing outpatient therapy History of Present Illness History of Present Illness Mr Álvarez is a 45 yo M w/ PMHx HTN, DM2, diabetic peripheral neuropathy who presents to the emergency department with complaints of wound to the bottom of his right foot that began a month ago. Patient states he went to his day treatment clinician/art therapist today who told him that he should go to the hospital for treatment. He denies any fever, cough, body aches, nausea, vomiting, diarrhea, shortness of breath, or abdominal pain. Patient states that his right leg has been swollen and now has some redness and warmth in his foot and lower leg. He works on his feet all day at [employer], notes that his A1c was 7 approximately 2 months ago. He does have regular podiatry follow-up and was actually referred to the wound clinic at [facility] today but was prompted to go to the hospital instead by his day treatment clinician/art therapist. Right foot XR with calcific densities overlying the anterior margin of the Achilles tendon shadow on the lateral view noted. Spurring involving the mid foot noted. no osteomyelitis changes. Labs significant for WBC 5.1, Hb 15 with MCV 78, platelets 132, NA 138, K3.9, BUN 12, CR 0.5, lactate 1.1, magnesium 1.7, albumin 3.2, glucose 160. 10/1: To OR. Partial-thickness wounds on plantar foot, the lateral forefoot wound went down to bone. No obvious gross purulence present. 102: Afebrile, labs stable. S/p PICC placement today and wants to start ambulating. 07/20: Afebrile. On daptomycin and Zosyn as well as fluconazole, awaiting operative cultures. Difficulty ambulating with his offloading shoe. Wound vac in place. Afebrile. Seen ambulating on stairs with PT. Plan: Outpatient wound care, needs referral to [facility] Outpatient wound vac? Outpatient daptomycin prescription on chart per Dr. Awad Likely can dc in next 24-48 hours Vitals/I&O Vitals/I&O: Vital Signs Date Time Temp Pulse Resp B/P (MAP) Pulse Ox O2 Delivery O2 Flow Rate FiO2 07/21/20 07:37 97.4 67 18 153/87 (109) 97 Room Air 97.4 I & O 07/20/20 07/20/20 07/21/20 15:00 23:00 07:00 Intake Total 550 ml 500 ml 1350 ml Output Total 375 ml 1750 ml Balance 550 ml 125 ml -400 ml Physical Exam Physical Exam: CONSTITUTIONAL: aox3 male in nad HEENT: Pupils equal and reactive. anicteric Oral cavity, pharynx was clear. NECK: Supple, no JVD. LUNGS: Clear to auscultation. HEART: S1, S2. ABDOMEN: Soft, nontender, no guarding, no rebound. EXTREMITIES: Without clubbing, cyanosis. His right lower extremity is dressed with wound vac in place. Trace warmth Also, has onychomycosis and yeast. SKIN: Otherwise, warm to touch. He has no rashes. He has a tattoo on his right lower extremity. NEUROLOGIC: Nonfocal, does have neuropathy. PSYCHIATRIC: Affect is pleasant. PICC line clean General: Alert, Oriented X3, No acute distress Heart: Regular rate Abdomen: Soft, No tenderness Extremities: Normal pulses, Other (He has right ankle and foot edema.) Skin: No rashes Labs Labs: Laboratory Tests Test 07/20/20 09:30 07/20/20 10:54 07/20/20 16:19 07/20/20 20:19 Sodium Level 139 mmol/L (136-145) Potassium Level 4.3 mmol/L (3.5-5.1) Chloride Level 103 mmol/L (98-107) Carbon Dioxide Level 33 mmol/L (21-32) Anion Gap 3 (6-14) Blood Urea Nitrogen 11 mg/dL (8-26) Creatinine 0.8 mg/dL (0.7-1.3) Estimated GFR (Cockcroft-Gault) 103.6 Glucose Level 196 mg/dL (70-99) Calcium Level 8.8 mg/dL (8.5-10.1) Creatine Kinase 31 U/L (39-308) Glucose (Fingerstick) 168 mg/dL (70-99) 136 mg/dL (70-99) 230 mg/dL (70-99) Test 07/21/20 07:29 Glucose (Fingerstick) 114 mg/dL (70-99) Assessment and Plan Assessmemt and Plan Problems Medical Problems: (1) Unspecified open wound, right foot, initial encounter Status: Acute Comment Review of Relevant I have reviewed the following items jayden (where applicable) has been applied. Justifications for Admission Other Justification LIZBETH MARTIN MD Jul 21, 2020 08:10
--- NOTE | 2020-07-21 08:20 | PDOC ---
Infectious Disease Note Subjective: Subjective Patient without complaints Denies fever, nausea, vomiting, shortness of breath, diarrhea, abdominal pain, rash Otherwise as above Vital Signs: Vital Signs Vital Signs Date Time Temp Pulse Resp B/P (MAP) Pulse Ox O2 Delivery O2 Flow Rate FiO2 07/21/20 07:37 97.4 67 18 153/87 (109) 97 Room Air 97.4 Physical Exam: PHYSICAL EXAM CONSTITUTIONAL: aox3 male in nad HEENT: Pupils equal and reactive. anicteric Oral cavity, pharynx was clear. NECK: Supple, no JVD. LUNGS: Clear to auscultation. HEART: S1, S2. ABDOMEN: Soft, nontender, no guarding, no rebound. EXTREMITIES: Without clubbing, cyanosis. His right lower extremity is dressed with wound vac in place. Trace warmth Also, has onychomycosis and yeast. SKIN: Otherwise, warm to touch. He has no rashes. He has a tattoo on his right lower extremity. NEUROLOGIC: Nonfocal, does have neuropathy. PSYCHIATRIC: Affect is pleasant. PICC line clean Medications: Inpatient Meds: Current Medications Medications (Trade) Dose Ordered Sig/Mago Start Time Stop Time Status Last Admin Dose Admin Acetaminophen (Tylenol) 650 mg PRN Q4HRS PRN 07/17/20 16:30 Bupivacaine HCl (Sensorcaine Mpf 0.5%) 30 ml STK-MED ONCE 07/18/20 11:27 07/18/20 11:28 DC Daptomycin 450 mg/ Sodium Chloride 50 ml @ 100 mls/hr Q24H 07/19/20 10:00 07/20/20 09:15 100 MLS/HR Dexamethasone Sodium Phosphate (Decadron) 20 mg STK-MED ONCE 07/18/20 11:28 07/18/20 11:28 DC Dextrose (Dextrose 50%-Water Syringe) 12.5 gm PRN Q15MIN PRN 07/17/20 16:30 Docusate Sodium (Colace) 100 mg PRN BID PRN 07/17/20 16:30 Fentanyl Citrate (Fentanyl 2ml Vial) 100 mcg STK-MED ONCE 07/18/20 11:29 07/18/20 11:29 DC Fluconazole (Diflucan) 200 mg DAILY 07/18/20 10:30 07/20/20 09:14 200 MG Gabapentin (Neurontin) 100 mg TID 10/1/20 14:00 07/20/20 21:08 100 MG Glipizide (Glucotrol Er) 5 mg DAILY08 07/18/20 09:30 07/20/20 09:14 5 MG Hydromorphone HCl (Dilaudid) 0.5 mg PRN Q10MIN PRN 07/18/20 11:15 07/19/20 11:14 DC Influenza Virus Vaccine Quadrival (Fluzone Quad Syringe) 0.5 ml ONCE ONCE 07/17/20 19:00 07/17/20 19:01 DC 07/17/20 20:06 0.5 ML Insulin Glargine (Lantus Syringe) 27 unit QHS 07/18/20 21:00 07/20/20 21:19 27 UNIT Insulin Human Lispro (HumaLOG VIAL for OP,RR ONLY) 0-10 units PRN Q1HR PRN 07/18/20 11:15 07/19/20 11:14 DC Insulin Human Lispro (HumaLOG) 0-7 UNITS TIDWMEALHC 07/17/20 17:00 07/20/20 21:22 4 UNITS Lactobacillus Rhamnosus (Culturelle) 1 cap BID 07/19/20 21:00 07/20/20 21:08 1 CAP Lidocaine HCl (Buffered Lidocaine 1%) 6 ml 1X ONCE 07/19/20 13:15 07/19/20 13:16 DC 07/19/20 13:26 2 ML Lidocaine HCl (Lidocaine Pf 2% Vial) 5 ml STK-MED ONCE 07/18/20 11:28 07/18/20 11:28 DC Lidocaine HCl (Xylocaine 1% Pf 30ml Vial) 30 ml STK-MED ONCE 07/18/20 11:27 07/18/20 11:27 DC Lisinopril (Prinivil) 20 mg DAILY 07/18/20 09:30 07/20/20 09:14 20 MG Lorazepam (Ativan) 0.5 mg PRN Q4HRS PRN 07/17/20 16:30 Magnesium Sulfate 50 ml @ 25 mls/hr 1X ONCE 07/17/20 15:15 07/17/20 17:14 DC 07/17/20 23:52 25 MLS/HR Morphine Sulfate (Morphine Sulfate) 1 mg PRN Q10MIN PRN 10/1/20 11:15 07/19/20 11:14 DC Ondansetron HCl (Zofran) 4 mg STK-MED ONCE 07/18/20 11:28 07/18/20 11:28 DC Piperacillin Sod/ Tazobactam Sod 3.375 gm/Sodium Chloride 50 ml @ 100 mls/hr Q6HRS 07/17/20 18:00 07/21/20 05:40 100 MLS/HR Prochlorperazine Edisylate (Compazine) 5 mg PACU PRN PRN 07/18/20 11:15 07/19/20 11:14 DC Propofol (Diprivan) 200 mg STK-MED ONCE 07/18/20 11:28 07/18/20 11:28 DC Ringer's Solution 1,000 ml @ 30 mls/hr Q24H 07/18/20 11:14 07/18/20 23:13 DC 07/18/20 11:00 30 MLS/HR Tramadol HCl (Ultram) 50 mg PRN Q6HRS PRN 07/17/20 16:30 07/18/20 21:18 50 MG Vancomycin HCl (Vanco Per Pharmacy) 1 each PRN DAILY PRN 07/17/20 16:30 07/19/20 08:20 DC 07/18/20 21:54 1 EACH Vancomycin HCl (Vancomycin Trough Level) 1 each 1X ONCE 07/18/20 20:30 07/18/20 20:31 DC 07/18/20 20:30 1 EACH Vancomycin HCl 1.25 gm/Sodium Chloride 250 ml @ 167 mls/hr Q8H 07/18/20 05:00 07/19/20 08:20 DC 07/19/20 05:07 167 MLS/HR Vancomycin HCl 2 gm/Sodium Chloride 500 ml @ 250 mls/hr 1X ONCE 07/17/20 18:30 07/17/20 20:29 DC 07/17/20 21:09 250 MLS/HR Zolpidem Tartrate (Ambien) 5 mg PRN QHS PRN 07/17/20 16:30 Labs: Lab Laboratory Tests Test 07/20/20 09:30 07/20/20 10:54 07/20/20 16:19 07/20/20 20:19 Sodium Level 139 mmol/L (136-145) Potassium Level 4.3 mmol/L (3.5-5.1) Chloride Level 103 mmol/L (98-107) Carbon Dioxide Level 33 mmol/L (21-32) Anion Gap 3 (6-14) Blood Urea Nitrogen 11 mg/dL (8-26) Creatinine 0.8 mg/dL (0.7-1.3) Estimated GFR (Cockcroft-Gault) 103.6 Glucose Level 196 mg/dL (70-99) Calcium Level 8.8 mg/dL (8.5-10.1) Creatine Kinase 31 U/L (39-308) Glucose (Fingerstick) 168 mg/dL (70-99) 136 mg/dL (70-99) 230 mg/dL (70-99) Test 07/21/20 07:29 Glucose (Fingerstick) 114 mg/dL (70-99) Objective: Assessment: Rt diab foot wound S/p Procedure performed: Irrigation and debridement down to bone of diabetic foot ulcer 07/18 cult not available BC neg Dm Yeast Neuropathy S/p Dexamethasone 07/18 Plan: Plan of Care cont Dapto and zosyn Cont Fluconazole local wound care as directed PICC garment liner and complications discussed Discharge prescription given Social work to assist with discharge antibiotics Side effects of antibiotics discussed Probiotics Q. Wednesday labs CBC/BUN/creatinine/CPK/CRP. Fax results to [phone] Follow-up ID clinic in 2 weeks, call [phone] for appointment Wound/VAC care as directed I discussed this with nursing staff VERÓNICA LOWRY MD Jul 21, 2020 08:20
[2020-07-21] MEDS: LACTOBACILLUS RHAMNOSUS GG 1 CAPSULE. PO SCH ×2 (08:59→23:04)
[2020-07-21] MEDS: glipiZIDE ER 2.5 MG TAB.ER.24 PO SCH (08:59)
[2020-07-21] MEDS: FLUCONAZOLE 100 MG TABLET. PO SCH (08:59)
[2020-07-21] MEDS: LISINOPRIL 20 MG TABLET PO SCH (09:00)
[2020-07-21] MEDS: GABAPENTIN 100 MG CAPSULE. PO SCH ×3 (09:00→23:04)
[2020-07-21] MEDS: DAPTOmycin (GENERIC) IVPB 450 MG in IV NORMAL SALINE 50ML 50 ML IV SCH (09:00)
--- NOTE | 2020-07-21 10:12 | NUR ---
PT HAS WOUND VAC IN PLACE TO R FOOT UNABLE TO TAKE WOUND PHOTOGRAPHS.
[2020-07-21 10:25] VITALS: BP 154/89
[2020-07-21 14:30] VITALS: BP 154/85
[2020-07-21 19:00] VITALS: BP 152/81
[2020-07-21 23:05] VITALS: BP 153/82
[2020-07-21] MEDS: INSULIN GLARGINE SYRINGE. SQ SCH (23:11)
[2020-07-22 03:23] VITALS: BP 137/85
[2020-07-22] MEDS: PIPERACILLIN/TAZOBACTAM 3.375 GM in IV NORMAL SALINE 50ML 50 ML IV SCH ×2 (05:31→11:42)
[2020-07-22 07:00] VITALS: BP 159/91
[2020-07-22] MEDS: INSULIN LISPRO 300 UNITS/3 ML VIAL. SQ SCH ×2 (07:57→11:45)
[2020-07-22] MEDS: glipiZIDE ER 2.5 MG TAB.ER.24 PO SCH (08:01)
[2020-07-22] MEDS: LISINOPRIL 20 MG TABLET PO SCH (08:02)
[2020-07-22] MEDS: FLUCONAZOLE 100 MG TABLET. PO SCH (08:02)
[2020-07-22] MEDS: LACTOBACILLUS RHAMNOSUS GG 1 CAPSULE. PO SCH (08:02)
[2020-07-22] MEDS: GABAPENTIN 100 MG CAPSULE. PO SCH ×2 (08:02→13:32)
--- NOTE | 2020-07-22 10:20 | PDOC ---
Infectious Disease Note Subjective: Subjective Patient without complaints Denies fever, nausea, vomiting, shortness of breath, diarrhea, abdominal pain, rash Otherwise as above Vital Signs: Vital Signs Vital Signs Date Time Temp Pulse Resp B/P (MAP) Pulse Ox O2 Delivery O2 Flow Rate FiO2 07/22/20 08:02 84 159/91 07/22/20 08:00 Room Air 07/22/20 07:00 97.8 17 98 97.8 Physical Exam: PHYSICAL EXAM CONSTITUTIONAL: aox3 male in nad HEENT: Pupils equal and reactive. anicteric Oral cavity, pharynx was clear. NECK: Supple, no JVD. LUNGS: Clear to auscultation. HEART: S1, S2. ABDOMEN: Soft, nontender, no guarding, no rebound. EXTREMITIES: Without clubbing, cyanosis. His right lower extremity is dressed with wound vac in place. Trace warmth Also, has onychomycosis and yeast. SKIN: Otherwise, warm to touch. He has no rashes. He has a tattoo on his right lower extremity. NEUROLOGIC: Nonfocal, does have neuropathy. PSYCHIATRIC: Affect is pleasant. PICC line clean Medications: Inpatient Meds: Current Medications Medications (Trade) Dose Ordered Sig/Mago Start Time Stop Time Status Last Admin Dose Admin Acetaminophen (Tylenol) 650 mg PRN Q4HRS PRN 07/17/20 16:30 Bupivacaine HCl (Sensorcaine Mpf 0.5%) 30 ml STK-MED ONCE 07/18/20 11:27 07/18/20 11:28 DC Daptomycin 450 mg/ Sodium Chloride 50 ml @ 100 mls/hr Q24H 07/19/20 10:00 07/21/20 09:00 100 MLS/HR Dexamethasone Sodium Phosphate (Decadron) 20 mg STK-MED ONCE 07/18/20 11:28 07/18/20 11:28 DC Dextrose (Dextrose 50%-Water Syringe) 12.5 gm PRN Q15MIN PRN 07/17/20 16:30 Docusate Sodium (Colace) 100 mg PRN BID PRN 07/17/20 16:30 Fentanyl Citrate (Fentanyl 2ml Vial) 100 mcg STK-MED ONCE 07/18/20 11:29 07/18/20 11:29 DC Fluconazole (Diflucan) 200 mg DAILY 07/18/20 10:30 07/22/20 08:02 200 MG Gabapentin (Neurontin) 100 mg TID 07/18/20 14:00 07/22/20 08:02 100 MG Glipizide (Glucotrol Er) 5 mg DAILY08 07/18/20 09:30 07/22/20 08:01 5 MG Hydromorphone HCl (Dilaudid) 0.5 mg PRN Q10MIN PRN 07/18/20 11:15 07/19/20 11:14 DC Influenza Virus Vaccine Quadrival (Fluzone Quad Syringe) 0.5 ml ONCE ONCE 07/17/20 19:00 07/17/20 19:01 DC 07/17/20 20:06 0.5 ML Insulin Glargine (Lantus Syringe) 27 unit QHS 07/18/20 21:00 07/21/20 23:11 27 UNIT Insulin Human Lispro (HumaLOG VIAL for OP,RR ONLY) 0-10 units PRN Q1HR PRN 07/18/20 11:15 07/19/20 11:14 DC Insulin Human Lispro (HumaLOG) 0-7 UNITS TIDWMEALHC 07/17/20 17:00 07/21/20 11:47 3 UNITS Lactobacillus Rhamnosus (Culturelle) 1 cap BID 07/19/20 21:00 07/22/20 08:02 1 CAP Lidocaine HCl (Buffered Lidocaine 1%) 6 ml 1X ONCE 07/19/20 13:15 07/19/20 13:16 DC 07/19/20 13:26 2 ML Lidocaine HCl (Lidocaine Pf 2% Vial) 5 ml STK-MED ONCE 07/18/20 11:28 07/18/20 11:28 DC Lidocaine HCl (Xylocaine 1% Pf 30ml Vial) 30 ml STK-MED ONCE 07/18/20 11:27 07/18/20 11:27 DC Lisinopril (Prinivil) 20 mg DAILY 07/18/20 09:30 07/22/20 08:02 20 MG Lorazepam (Ativan) 0.5 mg PRN Q4HRS PRN 07/17/20 16:30 Magnesium Sulfate 50 ml @ 25 mls/hr 1X ONCE 07/17/20 15:15 07/17/20 17:14 DC 07/17/20 23:52 25 MLS/HR Morphine Sulfate (Morphine Sulfate) 1 mg PRN Q10MIN PRN 07/18/20 11:15 07/19/20 11:14 DC Ondansetron HCl (Zofran) 4 mg STK-MED ONCE 07/18/20 11:28 07/18/20 11:28 DC Piperacillin Sod/ Tazobactam Sod 3.375 gm/Sodium Chloride 50 ml @ 100 mls/hr Q6HRS 07/17/20 18:00 07/22/20 05:31 100 MLS/HR Prochlorperazine Edisylate (Compazine) 5 mg PACU PRN PRN 07/18/20 11:15 07/19/20 11:14 DC Propofol (Diprivan) 200 mg STK-MED ONCE 07/18/20 11:28 07/18/20 11:28 DC Ringer's Solution 1,000 ml @ 30 mls/hr Q24H 07/18/20 11:14 07/18/20 23:13 DC 07/18/20 11:00 30 MLS/HR Tramadol HCl (Ultram) 50 mg PRN Q6HRS PRN 07/17/20 16:30 07/18/20 21:18 50 MG Vancomycin HCl (Vanco Per Pharmacy) 1 each PRN DAILY PRN 07/17/20 16:30 07/19/20 08:20 DC 07/18/20 21:54 1 EACH Vancomycin HCl (Vancomycin Trough Level) 1 each 1X ONCE 07/18/20 20:30 07/18/20 20:31 DC 07/18/20 20:30 1 EACH Vancomycin HCl 1.25 gm/Sodium Chloride 250 ml @ 167 mls/hr Q8H 07/18/20 05:00 07/19/20 08:20 DC 07/19/20 05:07 167 MLS/HR Vancomycin HCl 2 gm/Sodium Chloride 500 ml @ 250 mls/hr 1X ONCE 07/17/20 18:30 07/17/20 20:29 DC 07/17/20 21:09 250 MLS/HR Zolpidem Tartrate (Ambien) 5 mg PRN QHS PRN 07/17/20 16:30 07/21/20 23:04 5 MG Labs: Lab Laboratory Tests Test 07/21/20 11:23 07/21/20 16:09 07/21/20 23:13 07/22/20 07:42 Glucose (Fingerstick) 183 mg/dL (70-99) 144 mg/dL (70-99) 125 mg/dL (70-99) 120 mg/dL (70-99) Objective: Assessment: Rt diab foot wound S/p Procedure performed: Irrigation and debridement down to bone of diabetic foot ulcer 07/18 cult not available BC neg Dm Yeast Neuropathy S/p Dexamethasone 07/18 Plan: Plan of Care cont Dapto and zosyn Cont Fluconazole for now local wound care as directed PICC online marketing analyst and complications discussed Discharge prescription given to nursing staff Social work to assist with discharge antibiotics Side effects of antibiotics discussed Probiotics Q. Wednesday labs CBC/BUN/creatinine/CPK/CRP. Fax results to [phone] Follow-up ID clinic in 2 weeks, call [phone] for appointment Wound/VAC care as directed I discussed this with nursing staff VERÓNICA LOWRY MD Jul 22, 2020 10:20
[2020-07-22 10:24] LABS: BASO # 0.1 x10^3/uL (0.0-0.2); BASO % 1 % (0-3); EOS # 0.2 x10^3/uL (0.0-0.7); EOS % 3 % (0-3); HEMATOCRIT 41.2 % (39.0-53.0); HEMOGLOBIN 14.7 g/dL (13.0-17.5); LYMPH # 0.9 x10^3/uL (1.0-4.8); LYMPH % 14 % (24-48); MEAN CORPUSCULAR HEMOGLOBIN 28 pg (25-35); MEAN CORPUSCULAR HGB CONC 36 g/dL (31-37); MEAN CORPUSCULAR VOLUME 77 fL (79-100); MONO # 0.5 x10^3/uL (0.0-1.1); MONO % 8 % (0-9); NEUT # 4.4 x10^3/uL (1.8-7.7); NEUT % 74 % (31-73); PLATELET COUNT 117 x10^3/uL (140-400); RED BLOOD COUNT 5.33 x10^6/uL (4.30-5.70); RED CELL DISTRIBUTION WIDTH 13.5 % (11.5-14.5)
[2020-07-22] MEDS: DAPTOmycin (GENERIC) IVPB 450 MG in IV NORMAL SALINE 50ML 50 ML IV SCH (10:34)
[2020-07-22 10:43] LABS: ALBUMIN 3.1 g/dL (3.4-5.0); ALBUMIN/GLOBULIN RATIO 0.7 (1.0-1.7); CALCIUM 9.2 mg/dL (8.5-10.1); CREATININE 0.6 mg/dL (0.7-1.3); GFR 144.4; POTASSIUM 3.8 mmol/L (3.5-5.1); TOTAL BILIRUBIN 0.6 mg/dL (0.2-1.0); TOTAL PROTEIN 7.4 g/dL (6.4-8.2)
[2020-07-22 11:00] VITALS: BP 179/96
--- NOTE | 2020-07-22 12:05 | NUR ---
Wound Care Wound Type/Assessment: R lateral plantar DFU, s/p surgical debridement with Dr. Dejesus last week. Wound Vac and dressing removed, wound cleaned, measured and photographed. Midline plantar foot area, where callus and thickened skin had been debrided is now epithelialized. R lateral plantar foot wound appears very clean, red and granulated, still able to probe to bone and small amount is visualized in the base of the wound, small amount of tunnelling and undermining remains from 10-3:00. Treatment Recommendations/Plan: Pt would benefit from further use of wound vac until tunnelling/undermining and depth has filled in, but since pt's insurance is out of network with [facility] wound clinic, pt will not go home from the hospital with a vac, as we cannot follow up with him. Wound is packed with 1/4" Iodoform gauze, plantar forefoot covered with Xeroform gauze, ABD, and wrapped with kerlix, recommend changing every 2-3 days. Education provided: to patient re: off-loading, glucose control, s/sx of infection, and In-network wound clinics in the area. Offloading surface/device: Darco half-shoe Recommended Referrals/Tests: Referral to [facility] for custom Diabetic footwear (Packet given to pt, as pt's PCP is only provider that can complete paperwork, since PCP is overseeing Diabetic management.) Discharge Recommendations for dressings: see treatment plan above. *Pt given copy of in-network Wound Clinics and their contact info: [facility].
[2020-07-22] MEDS ORDERED: Fluconazole PO (12:13)
--- NOTE | 2020-07-22 12:17 | SNU/HH DC ---
DISCHARGE WITH HOME HEALTH DISCHARGE INFORMATION: Discharge Date: Jul 22, 2020 Final Diagnosis: Problems Medical Problems: (1) Unspecified open wound, right foot, initial encounter Status: Acute Condition on Discharge: Stable CODE STATUS: Code Status: Full HOME HEALTH: Face to Face: I certify this patient is under my care and that I, or a nurse practitioner or physician's information technology assistant working with me, had a face to face encounter that meets the physician face to face encounter requirements with this patient on []. Medical Complications: DM RN For Eval/Treatment: Yes Home Health Aide For: Self-care (Right foot dressing changes and wound care) Pt Meets Homebound Status: Limited distance walking POST DISCHARGE ORDERS: Activity Instructions for Disc: Activity as tolerated Weight Bearing Status after Di: As tolerated DIET AFTER DISCHARGE: ADA CHECKS AFTER DISCHARGE: Comment: Check right foot wound on each visit FOLLOW-UP: Follow up with: PCP within 2 weeks of discharge Follow Up With: Wound care clinic within 2 weeks DC TO SNF LABS: CBC, CMP Additional Instructions: Patient will need to go to infusion unit for IV daptomycin and Zosyn. Patient will also need follow-up with infectious disease for duration of antibiotics. Please have patient follow-up in infectious disease clinic TREATMENT/EQUIPMENT ORDERS: Infusion Equipment, home use: PICC Line CERTIFICATION STATEMENT: Certification Statement: Certification Statement: Based on the above finding, I certify that this patient is confined to the home and needs intermittent mcfp care, physical t herapy and/or speech therapy, or continues to need occupational therapy.~ This patient is under my care, and I have initiated the establishment of the plan of care.~ This patient will be followed by myself or a community physician who will periodically review the plan of care. Home Meds Active Scripts [Fluconazole] 100 MG TABLET No Conflict Check, 200 MG PO DAILY for foot wound for 30 Days, #60 TAB Prov:BULL FAULKNER MD 07/22/20 Reported Medications Lisinopril (LISINOPRIL) 20 Mg Tablet, 1 TAB PO DAILY for unknown, #30 TAB 5 Refills 07/17/20 Glipizide (GLIPIZIDE ER) 5 Mg Tab.er.24, 1 TAB PO DAILY for diabetes, #30 TAB 5 Refills 07/17/20 Insulin Degludec (Tresiba) 100 Unit/1 Ml Vial, 57 UNIT SQ DAILYWBKFT for diabetes, EACH 07/17/20 Gabapentin (GABAPENTIN ) 100 Mg Capsule, 100 MG PO TID for NEUROGENIC PAIN, CAP 07/17/20 BULL FAULKNER MD Jul 22, 2020 12:17
--- NOTE | 2020-07-22 12:46 | NUR ---
SW following. Spoke with RN and reviewed chart. Pt remains on room air and IV abx. Pt will discharge home today. Pt will discharge without a wound vac but will need HH to follow. Spoke with pt who is agreeable. LUIS phoned and faxed clinicals and discharge orders to [facility] at request of patient. Patient choice of vendor form completed. Charlotte with [employer] faxed scripts and discharge orders for home infusion today. Charlotte checked benefits and confirmed with pt who was agreeable to costs. Charlotte to come to the hospital and meet with pt prior to discharge. RN notified. No further SW needs at this time. Addendum: 07/22/20 at 1339 by MARY SMITH Spoke with [facility] admissions and start of care is 07/23. Pt's preference was HH over out-patient per insurance (LUIS consulted for out-patient wound care setup at [facility]). LUIS also provided pt with resources for food pantries and encouraged him to reach out to [employer] (LUIS consulted about cousin helping pay for pt's food). Pt stated he will talk with his boss today about time off and using stored vacation time to pay bills. Pt stated appreciation and no further SW needs.
--- NOTE | 2020-07-22 15:28 | NUR ---
Discharge Note: SAMI JORDAN [place] Discharge instructions and discharge home medications reviewed with Patient and a copy given. All questions have been answered and understanding verbalized. The following instructions and handouts were given: discharge instructions, new prescription, education and follow up recommendations. Patient has PICC line in right upper arm that is patent with him for home infusion therapy. Patient discharged to Home with Home Health with Family Member via Wheelchair off unit by BENITO.
--- NOTE | 2020-07-22 22:23 | PDOC3 ---
[facility]-Discharge Summary Date of Admission: Date of Admission: Jul 17, 2020 Date of Discharge: Date of Discharge: Jul 22, 2020 Admission Diagnosis: Admitting Diagnosis: Right foot with diabetic ulcer - open wound, foul smelling, actively bleeding. Will obtain deep wound culture, blood cultures, empiric vancomycin and zosyn. RLE vascular studies to assess whether vascular or ortho consultation for possible surgical debridement Right foot and leg cellulitis - failed outpatient therapy with podiatry, antibiotics as above DM2 - A1c 7, will place on sliding scale while inpatient Diabetic polyneuropathy - cont home gabapentin HTN - cont home meds Discharge Diagnosis: Discharge Diagnosis: Right foot with diabetic ulcer - open wound, foul smelling, no vascular compromise. Bone visible in wound, plan for PICC and longer term outpatient antibiotics, dapto, zosyn. Right foot and leg cellulitis - failed outpatient therapy with podiatry, antibiotics as above DM2 - A1c 7, will place on sliding scale while inpatient Diabetic polyneuropathy - cont home gabapentin HTN - cont home meds Consults: Consults: Ortho ID Hospital Course: Hospital Course: 45 yo M w/ PMHx HTN, DM2, diabetic peripheral neuropathy who presents to the emergency department with complaints of wound to the bottom of his right foot that began a month ago. Patient states he went to his tool hardener today who told him that he should go to the hospital for treatment. He denies any fever, cough, body aches, nausea, vomiting, diarrhea, shortness of breath, or abdominal pain. Patient states that his right leg has been swollen and now has some redness and warmth in his foot and lower leg. He works on his feet all day at [employer], notes that his A1c was 7 approximately 2 months ago. He does have regular podiatry follow-up and was actually referred to the wound clinic at [facility] today but was prompted to go to the hospital instead by his tool hardener. Right foot XR with Calcific densities overlying the anterior margin of the Achilles tendon shadow on the lateral view noted. Spurring involving the mid foot noted. no osteomyelitis changes. Labs significant for WBC 5.1, Hb 15 with MCV 8078, platelets 132, NA 138, K3.9, BUN 12, CR 0.5, lactate 1.1, magnesium 1.7, albumin 3.2, glucose 160. Patient was admitted for further care. Evaluated by ortho and went to OR for I&D and debridement down to bone. Wound vac was placed Patient will be continued with IV Abx to infusion unit as outpatient. He will continue with outpatient dressing changes and he will need to return to wound clinic for wound checks. Disposition: Disposition/Orders: D/C to Home Activity: Activity: Resume previous activity Medications: Home Meds Active Scripts [Fluconazole] 100 MG TABLET No Conflict Check, 200 MG PO DAILY for foot wound for 30 Days, #60 TAB Prov:BULL FAULKNER MD 07/22/20 Reported Medications Lisinopril (LISINOPRIL) 20 Mg Tablet, 1 TAB PO DAILY for unknown, #30 TAB 5 Refills 07/17/20 Glipizide (GLIPIZIDE ER) 5 Mg Tab.er.24, 1 TAB PO DAILY for diabetes, #30 TAB 5 Refills 07/17/20 Insulin Degludec (Tresiba) 100 Unit/1 Ml Vial, 57 UNIT SQ DAILYWBKFT for diabetes, EACH 07/17/20 Gabapentin (GABAPENTIN ) 100 Mg Capsule, 100 MG PO TID for NEUROGENIC PAIN, CAP 07/17/20 Scheduled Gabapentin (Gabapentin ), 100 MG PO TID, (Reported) Glipizide (Glipizide Er), 1 TAB PO DAILY, (Reported) Insulin Degludec (Tresiba), 57 UNIT SQ DAILYWBKFT, (Reported) Lisinopril (Lisinopril), 1 TAB PO DAILY, (Reported) [Fluconazole], 200 MG PO DAILY Total Time: Total Time: Total time spent was 35 minutes in preparing scripts, discharge planning with SW and RN, and preparing this discharge summary. Patient seen and examined on day of discharge. Justicifation of Admission Dx: Justifications for Admission: Justification of Admission Dx: Yes Sepsis: Infection BULL FAULKNER MD Jul 22, 2020 22:22
== END 2020-07-22 15:31 | disposition home health service (06) | DRG 629 ==
LOC: ER 13:31 → 5 NORTH 14:45
PROVIDERS: ADMIT Internal Medicine; ATTEND Internal Medicine
PROC: 0QBL0ZZ Excision of Right Tarsal, Open Approach (ICD-10-PCS; principal; 2020-07-18 11:30)
PROC: 02HV33Z Insertion of Infusion Device into Superior Vena Cava, Percutaneous Approach (ICD-10-PCS; 2020-07-19)
PROC: B548ZZA Ultrasonography of Superior Vena Cava, Guidance (ICD-10-PCS; 2020-07-19)
DX: E11.621 Type 2 diabetes mellitus with foot ulcer (principal); L03.115 Cellulitis of right lower limb; E11.42 Type 2 diabetes mellitus with diabetic polyneuropathy; E11.622 Type 2 diabetes mellitus with other skin ulcer; L97.519 Non-pressure chronic ulcer of other part of right foot with unspecified severity; Z82.49 Family history of ischemic heart disease and other diseases of the circulatory system; Z83.3 Family history of diabetes mellitus; Z87.891 Personal history of nicotine dependence; I10 Essential (primary) hypertension; Z20.828 Contact with and (suspected) exposure to other viral communicable diseases
CPT/HCPCS: 36415; 36573; 73630; 77001; 80048; 80053; 80202; 82550; 82962; 83540; 83550; 83605; 83735; 84443; 85025; 86140; 87040; 87426; 90471; 90686; 93926; 99285; C1751; C1892; J0878; J1100; J1815; J2405; J2543; J2704; J3010; J3370; J3475; J3490; J7040; J7050; J7120; 97116-GP; A4461; G0378; J7030; U0003-CS

== ENCOUNTER 2022-01-23 14:44 | Inpatient (IN) | payer BC, OTHER ==
[~2022-01-23] VITALS: Ht 177.8 cm; Wt 87.1 kg
[~2022-01-23 14:44] MED LIST: Fluconazole PO; GABA-585 PO; GLIP5TAB22 PO; INSU100V37 SQ; LISI20TA18 PO
--- NOTE | 2022-01-23 15:57 | ED.ADGEN ---
Past Medical History Past Medical History: Diabetes-Type II, Hypertension Past Surgical History: Other Additional Past Surgical Histo: R foot Smoking Status: Former Smoker Alcohol Use: None General Adult EDM: Chief Complaint: WOUND CHECK HPI: HPI: Patient is a 46 year old male coming in for a wound on his right fifth toe. Has been evaluated by his primary care provider and he was started on an tibiotics 1 week ago, states he has been taking 3 times a day but does not know the name has not missed any doses. Today he was sent to the emergency department his primary care provider is concerned that the wound is getting worse. Patient denies any trauma to the toe but believes it started a few weeks ago due to friction against against his shoe. Denies any pain but has a history of neuropathy. Last A1c was 9 about 3 months ago. denies any systemic complaints. Is he has had words periodically but this 1 is not getting better and has been getting worse. Has had some purulent drainage and occasional scant bleeding Review of Systems: Review of Systems: All other systems within normal limits except for as noted in the HPI Current Medications: Current Medications Medications (Trade) Dose Ordered Sig/Mago Start Time Stop Time Status Last Admin Dose Admin Acetaminophen (Tylenol) 650 mg PRN Q4HRS PRN 01/23/22 17:30 01/24/22 17:29 UNV Morphine Sulfate (Morphine Sulfate) 2 mg PRN Q2HR PRN 01/23/22 17:30 01/24/22 17:29 UNV Ondansetron HCl (Zofran) 4 mg PRN Q8HRS PRN 01/23/22 17:30 01/24/22 17:29 UNV Piperacillin Sod/ Tazobactam Sod 3.375 gm/Sodium Chloride 50 ml @ 100 mls/hr 1X ONCE 01/23/22 17:45 01/23/22 18:14 Vancomycin HCl 2 gm/Sodium Chloride 500 ml @ 250 mls/hr 1X ONCE 01/23/22 18:15 01/23/22 20:14 Allergies: Allergies: Allergies Coded Allergies Type Severity Reaction Last Updated Verified No Known Drug Allergies 07/17/20 No Physical Exam: PE: Constitutional: Well developed, well nourished, no acute distress, non-toxic appearance. [] HENT: Normocephalic, atraumatic, bilateral external ears normal, nose normal. [] Eyes: PERRLA, conjunctiva normal, no discharge. [] Neck: No rigidity, supple, no stridor. [] Cardiovascular: Regular rate and rhythm, brisk cap refill [] Lungs & Thorax: Non labored symmetric respirations, no tachypnea or respiratory distress [] Abdomen: Soft, nondistended. Skin: Warm, dry, no erythema, no rash. Circular scabbed wound on the lateral aspect of the right fifth toe. Wound on dorsum of right foot, with surrounding erythema. Left foot wound on dorsal aspect of fourth toe [] Back: Unremarkable Extremities: No deformities, range of motion grossly intact, no lower extremity edema. Deformities of fourth and fifth toes on bilateral feet [] Neurologic: Alert and oriented X 3, no focal deficits noted. [] Psychologic: Affect normal, judgement normal, mood normal. [] Current Patient Data: Labs: Laboratory Tests Test 01/23/22 16:55 White Blood Count 5.8 x10^3/uL (4.0-11.0) Red Blood Count 5.47 x10^6/uL (4.30-5.70) Hemoglobin 14.3 g/dL (13.0-17.5) Hematocrit 41.3 % (39.0-53.0) Mean Corpuscular Volume 76 fL (79-100) L Mean Corpuscular Hemoglobin 26 pg (25-35) Mean Corpuscular Hemoglobin Concent 35 g/dL (31-37) Red Cell Distribution Width 14.7 % (11.5-14.5) H Platelet Count 118 x10^3/uL (140-400) L Neutrophils (%) (Auto) 73 % (31-73) Lymphocytes (%) (Auto) 15 % (24-48) L Monocytes (%) (Auto) 10 % (0-9) H Eosinophils (%) (Auto) 2 % (0-3) Basophils (%) (Auto) 1 % (0-3) Neutrophils # (Auto) 4.3 x10^3/uL (1.8-7.7) Lymphocytes # (Auto) 0.9 x10^3/uL (1.0-4.8) L Monocytes # (Auto) 0.6 x10^3/uL (0.0-1.1) Eosinophils # (Auto) 0.1 x10^3/uL (0.0-0.7) Basophils # (Auto) 0.0 x10^3/uL (0.0-0.2) Laboratory Tests 01/23/22 16:55 Vital Signs: Vital Signs Date Time Temp Pulse Resp B/P (MAP) Pulse Ox O2 Delivery O2 Flow Rate FiO2 01/23/22 15:00 97.9 119 18 168/86 (113) 97 Room Air 97.9 EKG: EKG: [] Heart Score: C/O Chest Pain: No Risk Factors: Risk Factors: DM, Current or recent (<one month) smoker, HTN, HLP, family history of CAD, obesity. Risk Scores: Score 0 - 3: 2.5% MACE over next 6 weeks - Discharge Home Score 4 - 6: 20.3% MACE over next 6 weeks - Admit for Clinical Observation Score 7 - 10: 72.7% MACE over next 6 weeks - Early Invasive Strategies Radiology/Procedures: Radiology/Procedures: [facility] [address] [place] [address] IMAGING REPORT Signed PATIENT: SISSY JORDAN ACCOUNT: [id number] : 1975 LOCATION: ER AGE: 46 SEX: M EXAM STATUS: REG ER ORD. PHYSICIAN: KAYLIN PEÑA MD REASON: 5th toe wound, concern for osteo PROCEDURE: TOES RIGHT Study: XR RT TOE 2+ VIEWS Indication: Fifth toe wound. Osteomyelitis. Comparison: 07/17/2020 Findings: Osteomyelitis of the fifth toe phalanges the full extent of which would be better evaluated with MRI. Associated pathologic fracture of the fifth proximal phalanx head which is displaced in the dorsal direction. Malalignment across the fifth PIP joint. Overlying ulceration. Deformity at the head of the fourth proximal phalanx but this does not appear acute. Flexion deformities of the toes. Multifocal degenerative changes throughout the forefoot and partially assessed midfoot, hindfoot and ankle. Impression: Radiographic manifestations of osteomyelitis involving the fifth toe phalanges with an associated pathologic fracture at the head of the fifth proximal phalanx. The fractured head of the proximal phalanx is displaced in the dorsal direction and there is malalignment across the fifth PIP joint. The surrounding soft tissues are edematously prominent and with ulcerative change. Electronically signed by: JACKI PHELPS MD (01/23/2022 4:50 PM) [facility] DICTATED and SIGNED BY: JACKI PHELPS MD DATE: 01/23/22 1644 [] Course & Med Decision Making: Course & Med Decision Making Pertinent Labs and Imaging studies reviewed. (See chart for details) IV antibiotics initiated in the emergency department, admit to hospitalist for osteomyelitis and failed outpatient treatment of diabetic foot [] Dragon Disclaimer: Dragon Disclaimer: This electronic medical record was generated, in whole or in part, using a voice recognition dictation system. Departure Departure Impression: Primary Impression: Osteomyelitis of fifth toe of right foot Disposition: ADMITTED INPATIENT Admitting Physician: JUSTO Condition: STABLE Referrals: MARLENE DUGAN (PCP) KAYLIN PEÑA MD Jan 23, 2022 15:57
--- NOTE | 2022-01-23 16:52 | RAD ---
Study: XR RT TOE 2+ VIEWS Indication: Fifth toe wound. Osteomyelitis. Comparison: 07/17/2020 Findings: Osteomyelitis of the fifth toe phalanges the full extent of which would be better evaluated with MRI. Associated pathologic fracture of the fifth proximal phalanx head which is displaced in the dorsal d irection. Malalignment across the fifth PIP joint. Overlying ulceration. Deformity at the head of the fourth proximal phalanx but this does not appear acute. Flexion deformit ies of the toes. Multifocal degenerative changes throughout the forefoot and partially assessed midfo ot, hindfoot and ankle. Impression: Radiographic manifestations of osteomyelitis involving the fifth toe phalanges with an associated pat hologic fracture at the head of the fifth proximal phalanx. The fractured head of the proximal phalan x is displaced in the dorsal direction and there is malalignment across the fifth PIP joint. The surr ounding soft tissues are edematously prominent and with ulcerative change. Electronically signed by: JACKI PHELPS MD (01/23/2022 4:50 PM) [facility]
[2022-01-23 17:08] LABS: BASO % 1 % (0-3); EOS # 0.1 x10^3/uL (0.0-0.7); EOS % 2 % (0-3); HEMATOCRIT 41.3 % (39.0-53.0); HEMOGLOBIN 14.3 g/dL (13.0-17.5); LYMPH # 0.9 x10^3/uL (1.0-4.8); LYMPH % 15 % (24-48); MEAN CORPUSCULAR HEMOGLOBIN 26 pg (25-35); MEAN CORPUSCULAR HGB CONC 35 g/dL (31-37); MEAN CORPUSCULAR VOLUME 76 fL (79-100); MONO # 0.6 x10^3/uL (0.0-1.1); MONO % 10 % (0-9); NEUT # 4.3 x10^3/uL (1.8-7.7); NEUT % 73 % (31-73); PLATELET COUNT 118 x10^3/uL (140-400); RED BLOOD COUNT 5.47 x10^6/uL (4.30-5.70); RED CELL DISTRIBUTION WIDTH 14.7 % (11.5-14.5); WHITE BLOOD COUNT 5.8 x10^3/uL (4.0-11.0)
[2022-01-23 17:17] LABS: CALCIUM 8.9 mg/dL (8.5-10.1); CREATININE 0.8 mg/dL (0.7-1.3); GFR 103.2; POTASSIUM 4.5 mmol/L (3.5-5.1)
[2022-01-23 17:23] LABS: ALBUMIN 3.6 g/dL (3.4-5.0); ALBUMIN/GLOBULIN RATIO 1.1 (1.0-1.7); C-REACTIVE PROTEIN 3.6 mg/L (0-3.3); TOTAL BILIRUBIN 0.4 mg/dL (0.2-1.0)
[2022-01-23] MEDS ORDERED: ACETAMINOPHEN 325 MG TABLET. PO PRN ×2 (17:30→18:00)
[2022-01-23] MEDS ORDERED: MORPHINE SULFATE 2 MG/ML INJ. IVP PRN (17:30)
[2022-01-23] MEDS ORDERED: ONDANSETRON PF 4 MG/2 ML VIAL. IVP PRN ×2 (17:30→18:00)
--- NOTE | 2022-01-23 17:41 | NUR ---
applied 4x4 and coban so pt could walk to bathroom.
[2022-01-23] MEDS ORDERED: PIPERACILLIN/TAZOBACTAM 3.375 GM in IV NORMAL SALINE 50ML 50 ML IV ONE (17:45)
--- NOTE | 2022-01-23 17:47 | PDOC1 ---
History and Physical Date of Service: DOS: DATE: 01/23/22 TIME: 17:46 Chief Complaint: Chief Complain: wound History of Present Illness: HPI: Patient is a 46 year old male coming in for a wound on his right fifth toe. Has been evaluated by his primary care provider and he was started on antibiotics 1 week ago, states he has been taking 3 times a day but does not know the name has not missed any doses. Today he was sent to the emergency department his primary care provider is concerned that the wound is getting worse. Patient denies any trauma to the toe but believes it started a few weeks ago due to friction against against his shoe. Denies any pain but has a history of neuropathy. Last A1c was 9 about 3 months ago. denies any systemic complaints. Is he has had words periodically but this 1 is not getting better and has been getting worse. Has had some purulent drainage and occasional scant bleeding Past Medical/Surgical History: PMH/PSH: Past Medical History: Diabetes-Type II, Hypertension Additional Past Surgical Histo: R foot Smoking Status: Former Smoker Alcohol Use: None Allergies: Allergies: Coded Allergies: No Known Drug Allergies (Unverified , 07/17/20) Family History: Family History: DM Current Medications: Current Medications Current Medications Vancomycin HCl 2 gm/Sodium Chloride 500 ml @ 250 mls/hr 1X ONCE IV ; Start 01/23/22 at 18:15; Stop 01/23/22 at 20:14 Piperacillin Sod/ Tazobactam Sod 3.375 gm/Sodium Chloride 50 ml @ 100 mls/hr 1X ONCE IV ; Start 01/23/22 at 17:45; Stop 01/23/22 at 18:14 Ondansetron HCl (Zofran) 4 mg PRN Q8HRS PRN IVP NAUSEA/VOMITING; Start 01/23/22 at 17:30; Stop 01/24/22 at 17:29 Morphine Sulfate (Morphine Sulfate) 2 mg PRN Q2HR PRN IVP PAIN; Start 01/23/22 at 17:30; Stop 01/24/22 at 17:29 Acetaminophen (Tylenol) 650 mg PRN Q4HRS PRN PO FEVER > 100.3'F; Start 01/23/22 at 17:30; Stop 01/24/22 at 17:29 Active Scripts Active [Fluconazole] 100 MG Tablet 200 Mg PO DAILY 30 Days Reported Lisinopril 20 Mg Tablet 1 Tab PO DAILY Glipizide Er (Glipizide) 5 Mg Tab.er.24 1 Tab PO DAILY Tresiba (Insulin Degludec) 100 Unit/1 Ml Vial 57 Unit SQ DAILYWBKFT Gabapentin (Gabapentin) 100 Mg Capsule 100 Mg PO TID ROS: Review of Systems Review of System Unless known HPI 14 point review of systems is negative Physical Exam: Vital Signs: Vital Signs Date Time Temp Pulse Resp B/P (MAP) Pulse Ox O2 Delivery O2 Flow Rate FiO2 01/23/22 15:00 97.9 119 18 168/86 (113) 97 Room Air 97.9 Physcial Exam: GEN: No apparent distress. Alert and oriented HEENT: Normal cephalic, atraumatic, external auditory canals are patent EYES: Extraocular muscles are intact, pupil are equally round and reactive to light and accommodation MUSCULOSKELETAL: Well developed , well nourished, good range of motion ENDOCRINE: No thyromegaly was palpated LYMPHATICS: No cervical chain or axillary nodes were noted HEMATOPOIETIC: No bruising NECK: Supple, no JVD, no thyromegaly was noted LUNGS: Clear to auscultation in all lung jules without rhonchi or wheezing HEART: RRR, S!, S2 present. Peripheral pulses intact, no obvious murmurs noted ABDOMEN: Soft, nontender. Positive bowel sounds, no organomegaly, normal bowel sounds EXTREMITIES: Infected lower extremity NEUROLOGIC: Normal speech and tone. A&O x 3, moves all extremities, no obvious focal deficits PSYCHIATRIC: Normal affect, normal mood. Stable SKIN: No ulcerations or rashes, good skin turgor, no jaundice VASCULAR: Good capillary refill, neurovascular bundle appears to be intact Labs: Labs: Laboratory Tests Test 01/23/22 16:55 White Blood Count 5.8 x10^3/uL (4.0-11.0) Red Blood Count 5.47 x10^6/uL (4.30-5.70) Hemoglobin 14.3 g/dL (13.0-17.5) Hematocrit 41.3 % (39.0-53.0) Mean Corpuscular Volume 76 fL (79-100) Mean Corpuscular Hemoglobin 26 pg (25-35) Mean Corpuscular Hemoglobin Concent 35 g/dL (31-37) Red Cell Distribution Width 14.7 % (11.5-14.5) Platelet Count 118 x10^3/uL (140-400) Neutrophils (%) (Auto) 73 % (31-73) Lymphocytes (%) (Auto) 15 % (24-48) Monocytes (%) (Auto) 10 % (0-9) Eosinophils (%) (Auto) 2 % (0-3) Basophils (%) (Auto) 1 % (0-3) Neutrophils # (Auto) 4.3 x10^3/uL (1.8-7.7) Lymphocytes # (Auto) 0.9 x10^3/uL (1.0-4.8) Monocytes # (Auto) 0.6 x10^3/uL (0.0-1.1) Eosinophils # (Auto) 0.1 x10^3/uL (0.0-0.7) Basophils # (Auto) 0.0 x10^3/uL (0.0-0.2) Sodium Level 137 mmol/L (136-145) Potassium Level 4.5 mmol/L (3.5-5.1) Chloride Level 100 mmol/L (98-107) Carbon Dioxide Level 26 mmol/L (21-32) Anion Gap 11 (6-14) Blood Urea Nitrogen 16 mg/dL (8-26) Creatinine 0.8 mg/dL (0.7-1.3) Estimated GFR (Cockcroft-Gault) 103.2 BUN/Creatinine Ratio 20 (6-20) Glucose Level 279 mg/dL (70-99) Calcium Level 8.9 mg/dL (8.5-10.1) Total Bilirubin 0.4 mg/dL (0.2-1.0) Aspartate Amino Transf (AST/SGOT) 44 U/L (15-37) Alanine Aminotransferase (ALT/SGPT) 51 U/L (16-63) Alkaline Phosphatase 76 U/L (46-116) C-Reactive Protein, Quantitative 3.6 mg/L (0-3.3) Total Protein 7.0 g/dL (6.4-8.2) Albumin 3.6 g/dL (3.4-5.0) Albumin/Globulin Ratio 1.1 (1.0-1.7) Laboratory Tests Test 01/23/22 16:55 White Blood Count 5.8 x10^3/uL (4.0-11.0) Red Blood Count 5.47 x10^6/uL (4.30-5.70) Hemoglobin 14.3 g/dL (13.0-17.5) Hematocrit 41.3 % (39.0-53.0) Mean Corpuscular Volume 76 fL (79-100) Mean Corpuscular Hemoglobin 26 pg (25-35) Mean Corpuscular Hemoglobin Concent 35 g/dL (31-37) Red Cell Distribution Width 14.7 % (11.5-14.5) Platelet Count 118 x10^3/uL (140-400) Neutrophils (%) (Auto) 73 % (31-73) Lymphocytes (%) (Auto) 15 % (24-48) Monocytes (%) (Auto) 10 % (0-9) Eosinophils (%) (Auto) 2 % (0-3) Basophils (%) (Auto) 1 % (0-3) Neutrophils # (Auto) 4.3 x10^3/uL (1.8-7.7) Lymphocytes # (Auto) 0.9 x10^3/uL (1.0-4.8) Monocytes # (Auto) 0.6 x10^3/uL (0.0-1.1) Eosinophils # (Auto) 0.1 x10^3/uL (0.0-0.7) Basophils # (Auto) 0.0 x10^3/uL (0.0-0.2) Sodium Level 137 mmol/L (136-145) Potassium Level 4.5 mmol/L (3.5-5.1) Chloride Level 100 mmol/L (98-107) Carbon Dioxide Level 26 mmol/L (21-32) Anion Gap 11 (6-14) Blood Urea Nitrogen 16 mg/dL (8-26) Creatinine 0.8 mg/dL (0.7-1.3) Estimated GFR (Cockcroft-Gault) 103.2 BUN/Creatinine Ratio 20 (6-20) Glucose Level 279 mg/dL (70-99) Calcium Level 8.9 mg/dL (8.5-10.1) Total Bilirubin 0.4 mg/dL (0.2-1.0) Aspartate Amino Transf (AST/SGOT) 44 U/L (15-37) Alanine Aminotransferase (ALT/SGPT) 51 U/L (16-63) Alkaline Phosphatase 76 U/L (46-116) C-Reactive Protein, Quantitative 3.6 mg/L (0-3.3) Total Protein 7.0 g/dL (6.4-8.2) Albumin 3.6 g/dL (3.4-5.0) Albumin/Globulin Ratio 1.1 (1.0-1.7) Assessment/Plan Assessment/Plan Right foot with diabetic ulcer -obtain blood cultures, deep wound cultures. Start Vanc cefepime Flagyl. Wound care and Ortho consult given pathologic fracture; infectious disease consultation Right foot and leg cellulitis antibiotics as above DM2 -continue home meds and on sliding scale Diabetic polyneuropathy - cont home gabapentin HTN - cont home meds FEN - ADA diet PPX -Heparin FULL CODE Dispo - inpatient for diabetic ulcer failing outpatient therapy Justifications for Admission Other Justification LIZBETH HAAS MD Jan 23, 2022 17:47
[2022-01-23 17:50] LABS: RBC,URINE 0 /HPF (0-2); WBC,URINE 0 /HPF (0-4)
[2022-01-23 17:51] LABS: BACTERIA,URINE 0 /HPF (0-FEW)
[2022-01-23] MEDS ORDERED: oxyCODONE/APAP 5/325 1 TAB TABLET PO PRN ×2 (18:00)
[2022-01-23] MEDS ORDERED: IV DEXTROSE 5% 250 ML BAG. IV PRN (18:00)
[2022-01-23] MEDS ORDERED: ZOLPIDEM 5 MG TABLET. PO PRN (18:00)
[2022-01-23] MEDS ORDERED: ELECTROLYTE (NON-ICU) PROTOCOL. MC PRN (18:00)
[2022-01-23] MEDS ORDERED: CALCIUM CARBONATE 500 MG TAB.CHEW PO PRN (18:00)
[2022-01-23] MEDS ORDERED: DEXTROSE 50% 25 GM / 50ML DISP.SYRIN. IV PRN (18:00)
[2022-01-23] MEDS ORDERED: VANCOMYCIN 2 GM in IV NORMAL SALINE 500ML BAG 500 ML IV ONE (18:15)
[2022-01-23] MEDS: VANCOMYCIN PER PHARMACY MC PRN ×2 (18:17→19:34)
[2022-01-23] MEDS ORDERED: METOPROLOL IV PUSH 5 MG/5 ML VIAL. IVP ONE (18:30)
[2022-01-23 19:00] VITALS: BP 120/82
[2022-01-23] MEDS ORDERED: INSULIN LISPRO 300 UNITS/3 ML VIAL. SQ ONE (19:00)
--- NOTE | 2022-01-23 19:36 | NUR ---
Pharmacy Vancomycin Dosing Note S:Consulted to monitor and dose vancomycin started 01/23/22. O:SISSY JORDAN is a 46 year old M with toe wound poss osteo. Height: 5 feet, 10 inches Weight: 87.2 kg [place] Body Weight: 73.00 Adjusted Body Weight: 78.68 Dosing Weight: Other Antibiotics: LABS: Last BUN: 16 Last Creatinine: 0.8 Creatinine Clearance: >100 mL/min Last WBC: 5.8 Last Procalcitonin: Tmax (past 24 hours): 97.9 Microbiology: - I/O: Drug Levels: Last level: on at Last dose given 01/23/22 at 1922 Vancomycin Dosing: Loading Dose: 2000 mg x1 Dosing Weight: Target Trough: 15-20 A: Based on: WEIGHT AND RENAL FUNCTION P: 1. Begin Vancomycin 1250 mg IV q8h 2. Follow up Trough level on 01/24/22 at 1930 3. Pharmacy will continue to monitor, follow and adjust therapy as needed. Charity Hutchins RPH, 01/23/22 1936
[2022-01-23] MEDS: SENNOSIDES/DOCUSATE 8.6/50MG TABLET. PO SCH (20:41)
[2022-01-23] MEDS: GABAPENTIN 100 MG CAPSULE. PO SCH (20:41)
[2022-01-23] MEDS: CEFEPIME HCL IV Push 2 GM VIAL. IVP SCH (22:05)
[2022-01-23] MEDS: HEPARIN for SUB-Q USE 5,000 UNIT/ML VIAL. SQ SCH (22:24)
[2022-01-23 23:09] VITALS: BP 128/74
[2022-01-23] MEDS ORDERED: ROSU20TA28 PO (23:11)
[2022-01-23] MEDS ORDERED: METF10007 PO (23:11)
[2022-01-23] MEDS ORDERED: AMLO-187 PO (23:11)
[2022-01-23] MEDS ORDERED: LISI30TA4 PO (23:11)
[2022-01-24 03:00] VITALS: BP 127/86
[2022-01-24] MEDS: VANCOMYCIN 1.25 GM in IV NORMAL SALINE 250ML 250 ML IV SCH ×3 (04:08→21:33)
[2022-01-24] MEDS: CEFEPIME HCL IV Push 2 GM VIAL. IVP SCH ×2 (05:48→13:48)
[2022-01-24] MEDS: HEPARIN for SUB-Q USE 5,000 UNIT/ML VIAL. SQ SCH ×3 (05:55→23:50)
[2022-01-24 07:00] VITALS: BP 150/89
[2022-01-24] MEDS: INSULIN LISPRO 300 UNITS/3 ML VIAL. SQ SCH ×3 (07:46→17:21)
[2022-01-24] MEDS: GABAPENTIN 100 MG CAPSULE. PO SCH ×3 (08:50→21:32)
[2022-01-24] MEDS: LISINOPRIL 20 MG TABLET PO SCH (08:50)
[2022-01-24] MEDS: SENNOSIDES/DOCUSATE 8.6/50MG TABLET. PO SCH ×2 (08:50→21:32)
[2022-01-24] MEDS: INSULIN GLARGINE SYRINGE. SQ SCH (08:54)
[2022-01-24] MEDS ORDERED: FLUCONAZOLE 200 MG PO SCH (09:00)
[2022-01-24 09:16] LABS: BASO % 1 % (0-3); EOS # 0.2 x10^3/uL (0.0-0.7); EOS % 4 % (0-3); HEMOGLOBIN 13.6 g/dL (13.0-17.5); LYMPH # 0.8 x10^3/uL (1.0-4.8); LYMPH % 17 % (24-48); MEAN CORPUSCULAR HEMOGLOBIN 26 pg (25-35); MEAN CORPUSCULAR HGB CONC 34 g/dL (31-37); MEAN CORPUSCULAR VOLUME 76 fL (79-100); MONO # 0.5 x10^3/uL (0.0-1.1); MONO % 12 % (0-9); NEUT % 67 % (31-73); PLATELET COUNT 106 x10^3/uL (140-400); RED CELL DISTRIBUTION WIDTH 14.4 % (11.5-14.5); WHITE BLOOD COUNT 4.4 x10^3/uL (4.0-11.0)
[2022-01-24 09:46] LABS: ALBUMIN 3.4 g/dL (3.4-5.0); CALCIUM 8.7 mg/dL (8.5-10.1); CREATININE 0.6 mg/dL (0.7-1.3); GFR 143.8; POTASSIUM 4.4 mmol/L (3.5-5.1); TOTAL BILIRUBIN 0.7 mg/dL (0.2-1.0); TOTAL PROTEIN 6.8 g/dL (6.4-8.2)
[2022-01-24 11:00] VITALS: BP 122/82
[2022-01-24] MEDS: VANCOMYCIN PER PHARMACY MC PRN ×2 (14:10→20:07)
[2022-01-24 15:00] VITALS: BP 154/83
[2022-01-24 19:00] VITALS: BP 145/85
[2022-01-24 19:33] LABS: VANC TR 15.8 mcg/mL (10.0-20.0)
--- NOTE | 2022-01-24 20:08 | NUR ---
Pharmacy Vancomycin Dosing Note S: Consulted to monitor and dose vancomycin started 01/23/22. O: SISSY JORDAN is a 46 year old M with Cellulitis, Osteomyelitis, toe wound poss osteo Other Antibiotics: CEFEPIME, FLAGYL LABS: Last BUN: 12 Last Creatinine: 0.6 Creatinine Clearance: >100 mL/min Last WBC: 4.4 Tmax (past 24 hours): 98.4 Drug Levels: Last Trough level: 15.8 on 01/24/22 at 1915 Last dose given 01/24/22 at 1133 Target Trough: 15-20 A: Based on: THERAPEUTIC TROUGH P: 1. Continue Vancomycin 1250 mg IV q8h 2. Follow up Trough level in 5-7 days or if renal function changes 3. Pharmacy will continue to monitor, follow and adjust therapy as needed. FAZAL FRANCOIS RPH, 01/24/222007
--- NOTE | 2022-01-24 21:15 | PDOC ---
[facility] PROGRESS NOTE Date of Service DOS: DATE: 01/24/22 TIME: 21:13 Chief Complaint Chief Complaint Right foot with diabetic ulcer -obtain blood cultures, deep wound cultures. Start Vanc cefepime Flagyl. Wound care and Ortho consult given pathologic fracture; infectious disease consultation,, vascular consult Right foot and leg cellulitis antibiotics as above DM2 -continue home meds and on sliding scale Diabetic polyneuropathy - cont home gabapentin HTN - cont home meds FEN - ADA diet PPX -Heparin FULL CODE Dispo - inpatient for diabetic ulcer failing outpatient therapy History of Present Illness History of Present Illness 01/24 Patient evaluated examined at bedside. Resting in bed. Said pain well controlled. Continue antibiotics. ID consulted. Vascular surgery consulted today. We will continue to follow-up. Vitals/I&O Vitals/I&O: Vital Signs Date Time Temp Pulse Resp B/P (MAP) Pulse Ox O2 Delivery O2 Flow Rate FiO2 01/24/22 19:00 98.1 85 16 145/85 (105) 96 Room Air 98.1 I & O 01/23/22 01/23/22 01/24/22 15:00 23:00 07:00 Intake Total 250 ml 550 ml Balance 250 ml 550 ml Physical Exam General: Alert, Oriented X3 (d) Heart: Regular rate, Normal S1, Normal S2 Lungs: Clear Abdomen: Normal bowel sounds, Soft Extremities: Normal pulses Skin: No significant lesion Labs Labs: Laboratory Tests Test 01/24/22 07:28 01/24/22 07:55 01/24/22 12:26 01/24/22 17:13 Glucose (Fingerstick) 143 mg/dL (70-99) 203 mg/dL (70-99) 239 mg/dL (70-99) White Blood Count 4.4 x10^3/uL (4.0-11.0) Red Blood Count 5.30 x10^6/uL (4.30-5.70) Hemoglobin 13.6 g/dL (13.0-17.5) Hematocrit 40.0 % (39.0-53.0) Mean Corpuscular Volume 76 fL (79-100) Mean Corpuscular Hemoglobin 26 pg (25-35) Mean Corpuscular Hemoglobin Concent 34 g/dL (31-37) Red Cell Distribution Width 14.4 % (11.5-14.5) Platelet Count 106 x10^3/uL (140-400) Neutrophils (%) (Auto) 67 % (31-73) Lymphocytes (%) (Auto) 17 % (24-48) Monocytes (%) (Auto) 12 % (0-9) Eosinophils (%) (Auto) 4 % (0-3) Basophils (%) (Auto) 1 % (0-3) Neutrophils # (Auto) 3.0 x10^3/uL (1.8-7.7) Lymphocytes # (Auto) 0.8 x10^3/uL (1.0-4.8) Monocytes # (Auto) 0.5 x10^3/uL (0.0-1.1) Eosinophils # (Auto) 0.2 x10^3/uL (0.0-0.7) Basophils # (Auto) 0.0 x10^3/uL (0.0-0.2) Sodium Level 139 mmol/L (136-145) Potassium Level 4.4 mmol/L (3.5-5.1) Chloride Level 104 mmol/L (98-107) Carbon Dioxide Level 29 mmol/L (21-32) Anion Gap 6 (6-14) Blood Urea Nitrogen 12 mg/dL (8-26) Creatinine 0.6 mg/dL (0.7-1.3) Estimated GFR (Cockcroft-Gault) 143.8 BUN/Creatinine Ratio 20 (6-20) Glucose Level 166 mg/dL (70-99) Calcium Level 8.7 mg/dL (8.5-10.1) Total Bilirubin 0.7 mg/dL (0.2-1.0) Aspartate Amino Transf (AST/SGOT) 46 U/L (15-37) Alanine Aminotransferase (ALT/SGPT) 58 U/L (16-63) Alkaline Phosphatase 61 U/L (46-116) Total Protein 6.8 g/dL (6.4-8.2) Albumin 3.4 g/dL (3.4-5.0) Albumin/Globulin Ratio 1.0 (1.0-1.7) Test 01/24/22 19:15 Vancomycin Level Trough 15.8 mcg/mL (10.0-20.0) Vancomycin Last Dose Date 01/24/22 Vancomycin Last Dose Time 1200 Assessment and Plan Assessmemt and Plan Problems Medical Problems: (1) Osteomyelitis of fifth toe of right foot Status: Acute Comment Review of Relevant I have reviewed the following items jayden (where applicable) has been applied. Medications: Current Medications Medications (Trade) Dose Ordered Sig/Mago Route PRN Reason Start Time Stop Time Status Last Admin Dose Admin Cefepime HCl (Maxipime) 2 gm Q8HRS IVP 01/23/22 22:00 01/24/22 13:48 Metronidazole 100 ml @ 100 mls/hr Q8HRS IV 01/23/22 22:00 01/24/22 13:52 Lisinopril (Prinivil) 20 mg DAILY PO 01/24/22 09:00 01/24/22 08:50 Insulin Glargine (Lantus Syringe) 57 unit DAILYWBKFT SQ 01/24/22 08:00 01/24/22 08:54 Heparin Sodium (Porcine) (Heparin Sodium) 5,000 unit Q8HRS SQ 01/23/22 22:00 01/24/22 13:55 Insulin Human Lispro (HumaLOG) 0-7 UNITS TIDWMEALS SQ 01/24/22 08:00 01/24/22 17:21 Vancomycin HCl 1.25 gm/Sodium Chloride 250 ml @ 167 mls/hr Q8H IV 01/24/22 04:00 01/24/22 11:33 Vancomycin HCl (Vancomycin Trough Level) 1 each 1X ONCE 01/24/22 19:30 01/24/22 19:31 DC 01/24/22 19:30 Justifications for Admission Other Justification LIZBETH HAAS MD Jan 24, 2022 21:15
[2022-01-24] MEDS: LACTOBACILLUS RHAMNOSUS GG 1 CAPSULE. PO SCH (21:32)
[2022-01-24 22:57] VITALS: BP 144/90
[2022-01-25] MEDS: CEFEPIME HCL IV Push 2 GM VIAL. IVP SCH ×4 (01:09→23:41)
[2022-01-25 03:00] VITALS: BP 101/68
[2022-01-25] MEDS: VANCOMYCIN 1.25 GM in IV NORMAL SALINE 250ML 250 ML IV SCH ×3 (05:21→20:04)
[2022-01-25] MEDS: HEPARIN for SUB-Q USE 5,000 UNIT/ML VIAL. SQ SCH ×3 (06:30→22:39)
[2022-01-25 07:00] VITALS: BP 145/85
[2022-01-25] MEDS: INSULIN GLARGINE SYRINGE. SQ SCH (07:57)
[2022-01-25] MEDS: INSULIN LISPRO 300 UNITS/3 ML VIAL. SQ SCH ×3 (07:57→17:52)
[2022-01-25] MEDS: VANCOMYCIN PER PHARMACY MC PRN (08:10)
[2022-01-25] MEDS: LACTOBACILLUS RHAMNOSUS GG 1 CAPSULE. PO SCH ×2 (08:25→20:03)
[2022-01-25] MEDS: GABAPENTIN 100 MG CAPSULE. PO SCH ×3 (08:25→20:03)
[2022-01-25] MEDS: LISINOPRIL 20 MG TABLET PO SCH (08:25)
[2022-01-25] MEDS: SENNOSIDES/DOCUSATE 8.6/50MG TABLET. PO SCH ×2 (08:25→20:03)
--- NOTE | 2022-01-25 10:15 | PDOC2 ---
CONSULT Date of Service Date of Service DATE: 01/25/22 TIME: 10:03 Reason for Consult Reason for Consult: Right fifth toe osteomyelitis/wound Referring Physician Referring Physician: Dr. Awad Identification/Chief Complaint Chief Complaint Right foot wound with drainage Source Source: Patient History of Present Illness Reason for Visit: This is a 46-year-old male with history of poorly controlled diabetes mellitus and history of previous right plantar foot ulceration that did not require surgical intervention but healed with offloading. He began to develop worsening ulceration of the right fifth toe over the past few weeks. he then noticed spontaneous drainage from the wound on the right fifth toe. he therefore presented for further evaluation. he has custom orthotics that he typically wears. he is a non smoker. He works in fast food. he has no hx of previous foot surgery. Past Medical History Cardiovascular: HTN Endocrine: Diabetes Past Surgical History Past Surgical History: No pertinent history Family History Family History: Diabetes, Hypertension Social History ALCOHOL: none Drugs: None Current Problem List Problem List Problems Medical Problems: (1) Osteomyelitis of fifth toe of right foot Status: Acute Current Medications Current Medications Current Medications Vancomycin HCl 2 gm/Sodium Chloride 500 ml @ 250 mls/hr 1X ONCE IV Last administered on 01/23/22at 19:22; Start 01/23/22 at 18:15; Stop 01/23/22 at 20:14; Status DC Piperacillin Sod/ Tazobactam Sod 3.375 gm/Sodium Chloride 50 ml @ 100 mls/hr 1X ONCE IV Last administered on 01/23/22at 18:16; Start 01/23/22 at 17:45; Stop 01/23/22 at 18:14; Status DC Ondansetron HCl (Zofran) 4 mg PRN Q8HRS PRN IVP NAUSEA/VOMITING; Start 01/23/22 at 17:30; Stop 01/23/22 at 17:57; Status DC Morphine Sulfate (Morphine Sulfate) 2 mg PRN Q2HR PRN IVP PAIN; Start 01/23/22 at 17:30; Stop 01/24/22 at 17:29; Status DC Acetaminophen (Tylenol) 650 mg PRN Q4HRS PRN PO FEVER > 100.3'F; Start 01/23/22 at 17:30; Stop 01/24/22 at 17:29; Status Cancel Vancomycin HCl (Vanco Per Pharmacy) 1 each PRN DAILY PRN MC SEE COMMENTS Last administered on 01/25/22at 08:10; Start 01/23/22 at 17:45 Cefepime HCl (Maxipime) 2 gm Q8HRS IVP Last administered on 01/25/22at 06:14; Start 01/23/22 at 22:00 Metronidazole 100 ml @ 100 mls/hr Q8HRS IV Last administered on 01/25/22at 07:09; Start 01/23/22 at 22:00 Gabapentin (Neurontin) 100 mg TID PO Last administered on 01/25/22at 08:25; Start 01/23/22 at 21:00 Lisinopril (Prinivil) 20 mg DAILY PO Last administered on 01/25/22at 08:25; Start 01/24/22 at 09:00 Insulin Glargine (Lantus Syringe) 57 unit DAILYWBKFT SQ Last administered on 01/24/22at 08:54; Start 01/24/22 at 08:00 Non-Formulary Medication ([Fluconazole] ) 200 mg DAILY PO ; Start 01/24/22 at 09:00; Stop 01/23/22 at 17:58; Status DC Ondansetron HCl (Zofran) 4 mg PRN Q6HRS PRN IVP NAUSEA/VOMITING; Start 01/23/22 at 18:00 Calcium Carbonate/ Glycine (Tums) 500 mg PRN Q3HRS PRN PO UPSET STOMACH; Start 01/23/22 at 18:00 Zolpidem Tartrate (Ambien) 5 mg PRN QHS PRN PO INSOMNIA, MAY REPEAT IN 1HR; Start 01/23/22 at 18:00 Info (Non-Icu Electrolyte Protocol) 1 ea PRN DAILY PRN MC SEE COMMENTS; Start 01/23/22 at 18:00 Oxycodone/ Acetaminophen (Percocet 5/325) 1 tab PRN Q4HRS PRN PO MILD PAIN, 1ST CHOICE; Start 01/23/22 at 18:00 Oxycodone/ Acetaminophen (Percocet 5/325) 2 tab PRN Q4HRS PRN PO MODERATE PAIN, SEVERE PAIN; Start 01/23/22 at 18:00 Acetaminophen (Tylenol) 650 mg PRN Q6HRS PRN PO Headaches, Temp > 101.5F; Start 01/23/22 at 18:00 Senna/Docusate Sodium (Senna Plus) 1 tab BID PO Last administered on 01/25/22at 08:25; Start 01/23/22 at 21:00 Heparin Sodium (Porcine) (Heparin Sodium) 5,000 unit Q8HRS SQ Last administered on 01/25/22at 06:30; Start 01/23/22 at 22:00 Insulin Human Lispro (HumaLOG) 0-7 UNITS TIDWMEALS SQ Last administered on 01/24/22at 17:21; Start 01/24/22 at 08:00 Dextrose (Dextrose 50%-Water Syringe) 12.5 gm PRN Q15MIN PRN IV SEE COMMENTS; Start 01/23/22 at 18:00 Dextrose (Iv Dextrose 5%) 250 ml PRN Q15MIN PRN IV SEE COMMENTS; Start 01/23/22 at 18:00 Metoprolol Tartrate (Lopressor Vial) 5 mg 1X ONCE IVP Last administered on 01/23/22at 18:52; Start 01/23/22 at 18:30; Stop 01/23/22 at 18:31; Status DC Insulin Human Lispro (HumaLOG) 10 units ONCE ONCE SQ Last administered on 01/23/22at 22:25; Start 01/23/22 at 19:00; Stop 01/23/22 at 19:01; Status DC Vancomycin HCl 1.25 gm/Sodium Chloride 250 ml @ 167 mls/hr Q8H IV Last administered on 01/25/22at 05:21; Start 01/24/22 at 04:00 Vancomycin HCl (Vancomycin Trough Level) 1 each 1X ONCE MC Last administered on 01/24/22at 19:30; Start 01/24/22 at 19:30; Stop 01/24/22 at 19:31; Status DC Lactobacillus Rhamnosus (Culturelle) 1 cap BID PO Last administered on 01/25/22at 08:25; Start 01/24/22 at 21:00 Active Scripts Active [Fluconazole] 100 MG Tablet 200 Mg PO DAILY 30 Days Reported Amlodipine Besylate 10 Mg Tablet 20 Mg PO DAILY Rosuvastatin Calcium 20 Mg Tablet 20 Mg PO DAILY Lisinopril 30 Mg Tablet 30 Mg PO DAILY Metformin Hcl 1,000 Mg Tablet 1,000 Mg PO BIDWMEALS Lisinopril 20 Mg Tablet 1 Tab PO DAILY Glipizide Er (Glipizide) 5 Mg Tab.er.24 1 Tab PO DAILY Tresiba (Insulin Degludec) 100 Unit/1 Ml Vial 57 Unit SQ DAILYWBKFT Gabapentin (Gabapentin) 100 Mg Capsule 100 Mg PO TID Allergies Allergies: Coded Allergies: No Known Drug Allergies (Unverified , 07/17/20) Physical Exam General: Alert, Oriented X3 HEENT: Atraumatic, EOMI Lungs: Normal air movement Heart: Regular rate, Other (Palpable dp and pt on the right dp 1+ and PT 2+) Abdomen: Soft, No tenderness Extremities: No clubbing, No edema Skin: Other (There is a plantar ulceration near the right 5th mtp joint that is superficial with overlying eschar. ) Neuro: Normal speech, Strength at 5/5 X4 ext, Other (decreased sensation to light tough on toes of right foot) MUSCULOSKELETAL: No swelling, Other (There is signficiatn deformity of the right fifth toe) Vitals VITALS Vital Signs Date Time Temp Pulse Resp B/P (MAP) Pulse Ox O2 Delivery O2 Flow Rate FiO2 01/25/22 08:25 78 145/85 01/25/22 07:56 Room Air 01/25/22 07:00 98.4 18 96 98.4 Labs Labs Laboratory Tests Test 01/23/22 16:55 01/23/22 17:10 01/23/22 21:12 01/24/22 07:28 White Blood Count 5.8 x10^3/uL (4.0-11.0) Red Blood Count 5.47 x10^6/uL (4.30-5.70) Hemoglobin 14.3 g/dL (13.0-17.5) Hematocrit 41.3 % (39.0-53.0) Mean Corpuscular Volume 76 fL (79-100) Mean Corpuscular Hemoglobin 26 pg (25-35) Mean Corpuscular Hemoglobin Concent 35 g/dL (31-37) Red Cell Distribution Width 14.7 % (11.5-14.5) Platelet Count 118 x10^3/uL (140-400) Neutrophils (%) (Auto) 73 % (31-73) Lymphocytes (%) (Auto) 15 % (24-48) Monocytes (%) (Auto) 10 % (0-9) Eosinophils (%) (Auto) 2 % (0-3) Basophils (%) (Auto) 1 % (0-3) Neutrophils # (Auto) 4.3 x10^3/uL (1.8-7.7) Lymphocytes # (Auto) 0.9 x10^3/uL (1.0-4.8) Monocytes # (Auto) 0.6 x10^3/uL (0.0-1.1) Eosinophils # (Auto) 0.1 x10^3/uL (0.0-0.7) Basophils # (Auto) 0.0 x10^3/uL (0.0-0.2) Erythrocyte Sedimentation Rate 5 (0-15) Sodium Level 137 mmol/L (136-145) Potassium Level 4.5 mmol/L (3.5-5.1) Chloride Level 100 mmol/L (98-107) Carbon Dioxide Level 26 mmol/L (21-32) Anion Gap 11 (6-14) Blood Urea Nitrogen 16 mg/dL (8-26) Creatinine 0.8 mg/dL (0.7-1.3) Estimated GFR (Cockcroft-Gault) 103.2 BUN/Creatinine Ratio 20 (6-20) Glucose Level 279 mg/dL (70-99) Calcium Level 8.9 mg/dL (8.5-10.1) Total Bilirubin 0.4 mg/dL (0.2-1.0) Aspartate Amino Transf (AST/SGOT) 44 U/L (15-37) Alanine Aminotransferase (ALT/SGPT) 51 U/L (16-63) Alkaline Phosphatase 76 U/L (46-116) C-Reactive Protein, Quantitative 3.6 mg/L (0-3.3) Total Protein 7.0 g/dL (6.4-8.2) Albumin 3.6 g/dL (3.4-5.0) Albumin/Globulin Ratio 1.1 (1.0-1.7) Urine Collection Type Unknown Urine Color (Auto) Light yellow Urine Turbidity Clear Urine pH (Auto) 5.0 (<5.0-8.0) Urine Specific [place] 1.028 (1.000-1.030) Urine Protein (Auto) Negative mg/dL (Negative) Urine Glucose (Auto)(UA) >=1000 mg/dL (Negative) Urine Ketones (Auto) 10 mg/dL (Negative) Urine Blood (Auto) Negative (Negative) Urine Nitrite Negative (Negative) Urine Bilirubin (Auto) Negative (Negative) Urine Urobilinogen (Auto) Normal mg/dL (Normal) Urine Leukocyte Esterase (Auto) Negative (Negative) Urine RBC 0 /HPF (0-2) Urine WBC 0 /HPF (0-4) Urine Squamous Epithelial Cells Occ /LPF Urine Bacteria 0 /HPF (0-FEW) Glucose (Fingerstick) 307 mg/dL (70-99) 143 mg/dL (70-99) Test 01/24/22 07:55 01/24/22 12:26 01/24/22 17:13 01/24/22 19:15 White Blood Count 4.4 x10^3/uL (4.0-11.0) Red Blood Count 5.30 x10^6/uL (4.30-5.70) Hemoglobin 13.6 g/dL (13.0-17.5) Hematocrit 40.0 % (39.0-53.0) Mean Corpuscular Volume 76 fL (79-100) Mean Corpuscular Hemoglobin 26 pg (25-35) Mean Corpuscular Hemoglobin Concent 34 g/dL (31-37) Red Cell Distribution Width 14.4 % (11.5-14.5) Platelet Count 106 x10^3/uL (140-400) Neutrophils (%) (Auto) 67 % (31-73) Lymphocytes (%) (Auto) 17 % (24-48) Monocytes (%) (Auto) 12 % (0-9) Eosinophils (%) (Auto) 4 % (0-3) Basophils (%) (Auto) 1 % (0-3) Neutrophils # (Auto) 3.0 x10^3/uL (1.8-7.7) Lymphocytes # (Auto) 0.8 x10^3/uL (1.0-4.8) Monocytes # (Auto) 0.5 x10^3/uL (0.0-1.1) Eosinophils # (Auto) 0.2 x10^3/uL (0.0-0.7) Basophils # (Auto) 0.0 x10^3/uL (0.0-0.2) Sodium Level 139 mmol/L (136-145) Potassium Level 4.4 mmol/L (3.5-5.1) Chloride Level 104 mmol/L (98-107) Carbon Dioxide Level 29 mmol/L (21-32) Anion Gap 6 (6-14) Blood Urea Nitrogen 12 mg/dL (8-26) Creatinine 0.6 mg/dL (0.7-1.3) Estimated GFR (Cockcroft-Gault) 143.8 BUN/Creatinine Ratio 20 (6-20) Glucose Level 166 mg/dL (70-99) Calcium Level 8.7 mg/dL (8.5-10.1) Total Bilirubin 0.7 mg/dL (0.2-1.0) Aspartate Amino Transf (AST/SGOT) 46 U/L (15-37) Alanine Aminotransferase (ALT/SGPT) 58 U/L (16-63) Alkaline Phosphatase 61 U/L (46-116) Total Protein 6.8 g/dL (6.4-8.2) Albumin 3.4 g/dL (3.4-5.0) Albumin/Globulin Ratio 1.0 (1.0-1.7) Glucose (Fingerstick) 203 mg/dL (70-99) 239 mg/dL (70-99) Vancomycin Level Trough 15.8 mcg/mL (10.0-20.0) Vancomycin Last Dose Date 01/24/22 Vancomycin Last Dose Time 1200 Test 01/24/22 20:26 01/25/22 07:44 Glucose (Fingerstick) 193 mg/dL (70-99) 100 mg/dL (70-99) Laboratory Tests Test 01/24/22 12:26 01/24/22 17:13 01/24/22 19:15 01/24/22 20:26 Glucose (Fingerstick) 203 mg/dL (70-99) 239 mg/dL (70-99) 193 mg/dL (70-99) Vancomycin Level Trough 15.8 mcg/mL (10.0-20.0) Vancomycin Last Dose Date 01/24/22 Vancomycin Last Dose Time 1200 Test 01/25/22 07:44 Glucose (Fingerstick) 100 mg/dL (70-99) Images Images XRAY consistent with right fifth toe osteomyelitis Assessment/Plan Assessment/Plan 1. Right fifth toe osteomyelitis 2. poorly controlled diabetes mellitus with diabetic neuropathy 3. HTN will proceed with right fifth toe amputation tomorrow. NPO after MN. timing TBD depending on operating room availability. Patient agrees to proceed. Will need forefoot offloading shoe post procedure to allow plantar ulcer to heal stressed importance of glycemic control to avoid recurrent ulceration. POPEYE PASTRANA MD Jan 25, 2022 10:15
[2022-01-25 11:00] VITALS: BP 155/90
[2022-01-25 15:00] VITALS: BP 144/79
--- NOTE | 2022-01-25 16:13 | RAD ---
DUPLEX SONOGRAPHY OF THE PERIPHERAL ARTERIAL SYSTEM OF THE RIGHT LOWER EXTREMITY Clinical indications: Osteomyelitis. Fifth toe wound. Findings: Duplex sonography of the peripheral arterial system of the right lower extremity including jamison scale and color flow and spectral waveform analysis was performed.Triphasic waveforms are seen. No occlusive disease is seen. No significant stenosis is identified. The measurements were performed using the NASCET criteria. Peak systolic flow velocities are as follows: Right leg: common femoral artery- 111 cm/sec, profunda femoral artery -42 cm/sec, proximal superfici al femoral artery -86 cm/sec, mid superficial femoral artery -90 cm/sec, distal superficial femoral a rtery- 72 cm/sec, popliteal artery -133 cm/sec, proximal posterior tibial artery- 95 cm/sec, distal p osterior tibial artery- 70 cm/sec, peroneal artery- 43 cm/sec, anterior tibial artery- 48 cm/sec, enio salis pedis artery -63 cm/sec. IMPRESSION: No occlusive disease or significant stenosis is seen on the right side. Electronically signed by: Kwabena Payton MD (01/25/2022 4:10 PM) [id number]
--- NOTE | 2022-01-25 16:16 | PDOC ---
Infectious Disease Note Subjective: Subjective Patient without complaints Awaiting surgery tomorrow by vascular team Vital Signs: Vital Signs Vital Signs Date Time Temp Pulse Resp B/P (MAP) Pulse Ox O2 Delivery O2 Flow Rate FiO2 01/25/22 15:00 98.1 90 18 144/79 (100) 96 Room Air 98.1 Physical Exam: PHYSICAL EXAM GENERAL: Alert, oriented x 3, lying in bed comfortably, in no acute distress. HEENT: Normocephalic, atraumatic. Anicteric. NECK: Supple. LUNGS: Clear bilaterally. No wheezing. HEART: S1, S2. No gallops or murmurs. ABDOMEN: Soft, nontender, nondistended. No rebound or guarding. EXTREMITIES: No edema or cyanosis swelling with plantar ulceration of the right fifth metacarpophalangeal joint with overlying eschar there is a plantar ulceration near the right 5th mtp joint that is superficial with overlying eschar. No purulent drainage MUSCULOSKELETAL: No joint swelling. No decrease in range of motion. Changes suggestive of DJD except for above CENTRAL NERVOUS SYSTEM: Alert, oriented x 3, grossly nonfocal. PSYCHIATRIC: Cooperative, calm. LINES: looks clean. Medications: Inpatient Meds: Medications reviewed. Labs: Lab Laboratory Tests Test 01/24/22 17:13 01/24/22 19:15 01/24/22 20:26 01/25/22 07:44 Glucose (Fingerstick) 239 mg/dL (70-99) 193 mg/dL (70-99) 100 mg/dL (70-99) Vancomycin Level Trough 15.8 mcg/mL (10.0-20.0) Vancomycin Last Dose Date 01/24/22 Vancomycin Last Dose Time 1200 Test 01/25/22 10:40 01/25/22 10:52 SARS-CoV-2 Antigen (Rapid) Negative (NEGATIVE) Glucose (Fingerstick) 211 mg/dL (70-99) Objective: Assessment: Rt 5 th toe osteomyelitis DM HTN Plan: Plan of Care amputation has been planned for tomorrow cont antibiotics VERÓNICA LOWRY MD Jan 25, 2022 16:16
[2022-01-25 19:00] VITALS: BP 135/78
--- NOTE | 2022-01-25 21:48 | PDOC ---
[facility] PROGRESS NOTE Date of Service DOS: DATE: 01/25/22 TIME: 21:47 Chief Complaint Chief Complaint Right foot with diabetic ulcer -obtain blood cultures, deep wound cultures. Start Vanc cefepime Flagyl. Wound care and Ortho consult given pathologic fracture; infectious disease consultation,, vascular consult Right foot and leg cellulitis antibiotics as above DM2 -continue home meds and on sliding scale Diabetic polyneuropathy - cont home gabapentin HTN - cont home meds FEN - ADA diet PPX -Heparin FULL CODE Dispo - inpatient for diabetic ulcer failing outpatient therapy History of Present Illness History of Present Illness 01/25 Seen and examined at bedside. Doing well resting in bed. Planning for amputation. Of fifth right toe tomorrow. Continue antibiotics. N.p.o. midnight. 01/24 Patient evaluated examined at bedside. Resting in bed. Said pain well controlled. Continue antibiotics. ID consulted. Vascular surgery consulted today. We will continue to follow-up. Vitals/I&O Vitals/I&O: Vital Signs Date Time Temp Pulse Resp B/P (MAP) Pulse Ox O2 Delivery O2 Flow Rate FiO2 01/25/22 19:00 97.3 88 18 135/78 (97) 97 Room Air 97.3 I & O 01/24/22 01/24/22 01/25/22 15:00 23:00 07:00 Intake Total 400 ml Output Total 1000 ml 600 ml Balance -600 ml -600 ml Physical Exam Physical Exam: GENERAL: Alert, oriented x 3, lying in bed comfortably, in no acute distress. HEENT: Normocephalic, atraumatic. Anicteric. NECK: Supple. LUNGS: Clear bilaterally. No wheezing. HEART: S1, S2. No gallops or murmurs. ABDOMEN: Soft, nontender, nondistended. No rebound or guarding. EXTREMITIES: No edema or cyanosis swelling with plantar ulceration of the right fifth metacarpophalangeal joint with overlying eschar there is a plantar ulceration near the right 5th mtp joint that is superficial with overlying eschar. No purulent drainage MUSCULOSKELETAL: No joint swelling. No decrease in range of motion. Changes suggestive of DJD except for above CENTRAL NERVOUS SYSTEM: Alert, oriented x 3, grossly nonfocal. PSYCHIATRIC: Cooperative, calm. LINES: looks clean. General: Alert, Oriented X3 Heart: Regular rate, Other (Palpable dp and pt on the right dp 1+ and PT 2+) Lungs: Clear Abdomen: Soft, No tenderness Extremities: No clubbing, No edema Skin: Other (There is a plantar ulceration near the right 5th mtp joint that is superficial with overlying eschar. ) Labs Labs: Laboratory Tests Test 01/25/22 07:44 01/25/22 10:40 01/25/22 10:52 01/25/22 17:36 Glucose (Fingerstick) 100 mg/dL (70-99) 211 mg/dL (70-99) 171 mg/dL (70-99) SARS-CoV-2 Antigen (Rapid) Negative (NEGATIVE) Test 01/25/22 20:29 Glucose (Fingerstick) 223 mg/dL (70-99) Assessment and Plan Assessmemt and Plan Problems Medical Problems: (1) Osteomyelitis of fifth toe of right foot Status: Acute Comment Review of Relevant I have reviewed the following items jayden (where applicable) has been applied. Justifications for Admission Other Justification LIZBETH HAAS MD Jan 25, 2022 21:48
[2022-01-25 23:00] VITALS: BP 151/81
[2022-01-26] VITALS (12 sets, daily range): BP systolic 128–154; BP diastolic 72–90
--- NOTE | 2022-01-26 05:31 | CONS ---
DATE OF CONSULTATION: 01/24/2022 REQUESTING PHYSICIAN: Gigi Coates MD REASON FOR CONSULTATION: Osteomyelitis of the right fifth toe. HISTORY OF PRESENT ILLNESS: This is a 46-year-old gentleman who has had ill-fitting shoes. He started developing the wound and some calluses on the right foot. The patient says maybe about 2 weeks or 3 weeks ago, he noticed he has been going to the wound care center and seeing Dr. Nadege Cervantes and finally, she said for him to go to the ER that he is not getting better. The patient had been on antibiotics. The patient denies any fever, denies any nausea, vomiting, diarrhea, chest pain, shortness of breath, abdominal pain, urinary symptoms or bowel symptoms. PAST MEDICAL HISTORY: Positive for diabetes mellitus, hypertension. SOCIAL HISTORY: Negative for smoking, alcohol use or drug use. ALLERGIES: No known drug allergies. CURRENT MEDICATIONS: ____ vancomycin, cefepime and Flagyl right now the patient is on. REVIEW OF SYSTEMS: As in HPI. All other systems reviewed are negative. PHYSICAL EXAMINATION: GENERAL: Alert, oriented gentleman, not in distress. VITAL SIGNS: Stable, afebrile. HEENT: NAD. NECK: Supple, no JVP, no lymphadenopathy. LUNGS: Clear. HEART: S1, S2, regular. ABDOMEN: Soft, nontender, no organomegaly. EXTREMITIES: No edema or cyanosis. SKIN: Unremarkable. The patient does have dorsalis pedis palpable, though in particular right foot, the patient does have wound onto the right fifth toe laterally, which is deep probes to the bone. There is some callus onto the fifth metatarsal head area. Rest of skin exam is unremarkable. NEUROLOGIC: The patient is alert, awake, and appropriate. No focal neurologic deficit. LABORATORY DATA: White count is normal. Sed rate is only 5. BUN and creatinine is normal. Urinalysis unremarkable. X-ray of the foot is showing osteomyelitis involving the fifth toe phalanges with an associated pathologic fracture of the head of the fifth proximal phalanx. Fracture head of the proximal phalanx is displaced. IMPRESSION: 1. Right fifth toe osteomyelitis with pathologic fracture. 2. Diabetes mellitus. 3. Hypertension. RECOMMENDATIONS: Continue antibiotics. As my understanding, orthopedic surgeon saw the patient and there is no note and according to the RN, there is nothing he needs to do. We will wait for the formal consult and continue to follow. Thank you very much, Dr. Coates, for giving me opportunity to participate in this patient's care. PRINCE/LOTTIE/VINCENT DR: PRINCE/yury TID: [id number]
[2022-01-26] MEDS: HEPARIN for SUB-Q USE 5,000 UNIT/ML VIAL. SQ SCH ×3 (06:00→23:02)
[2022-01-26 06:19] LABS: CREATININE 0.7 mg/dL (0.7-1.3); GFR 120.4
[2022-01-26] MEDS: CEFEPIME HCL IV Push 2 GM VIAL. IVP SCH ×3 (07:10→23:51)
[2022-01-26] MEDS: VANCOMYCIN 1.25 GM in IV NORMAL SALINE 250ML 250 ML IV SCH ×3 (07:19→21:04)
[2022-01-26] MEDS ORDERED: MORPHINE SULFATE 2 MG/ML INJ. IVP PRN ×2 (07:30→09:45)
[2022-01-26] MEDS ORDERED: fentaNYL PF VIAL 100 MCG/2 ML VIAL IVP PRN ×2 (07:30)
[2022-01-26] MEDS ORDERED: PROCHLORPERAZINE 10 MG/2 ML VIAL. IVP PRN (07:30)
[2022-01-26] MEDS ORDERED: IV RINGERS,LACTATED 1000ML 1,000 ML IV SCH (07:30)
[2022-01-26] MEDS ORDERED: HYDROmorphone 2 MG/ML INJ. IVP PRN (07:30)
[2022-01-26] MEDS: INSULIN GLARGINE SYRINGE. SQ SCH (08:00)
[2022-01-26] MEDS: INSULIN LISPRO 300 UNITS/3 ML VIAL. SQ SCH ×2 (08:00→21:00)
[2022-01-26] MEDS: GABAPENTIN 100 MG CAPSULE. PO SCH ×3 (09:00→21:44)
[2022-01-26] MEDS: SENNOSIDES/DOCUSATE 8.6/50MG TABLET. PO SCH ×2 (09:00→21:44)
[2022-01-26] MEDS: LISINOPRIL 20 MG TABLET PO SCH (09:00)
[2022-01-26] MEDS: LACTOBACILLUS RHAMNOSUS GG 1 CAPSULE. PO SCH ×2 (09:00→21:44)
--- NOTE | 2022-01-26 11:35 | PDOC ---
[facility] PROGRESS NOTE Date of Service DOS: DATE: 01/26/22 TIME: 11:21 Chief Complaint Chief Complaint Right foot with diabetic ulcer -obtain blood cultures, deep wound cultures. Started Vanc cefepime Flagyl. Wound care and Ortho consult given pathologic fracture; infectious disease consultation,, vascular consult Right foot and leg cellulitis antibiotics as above Right fifth toe osteomyelitispathologic fracture no significant vascular abnormalities on duplex. DM2 -continue home meds and on sliding scale Diabetic polyneuropathy - cont home gabapentin HTN - cont home meds Thrombocytopenia FEN - ADA diet PPX -Heparin FULL CODE Dispo - inpatient for diabetic ulcer failing outpatient therapy History of Present Illness History of Present Illness Mr Álvarez is a 46 yo w/ PMHx DM2, HTN who has significant wounds and calluses on his right foot especially laterally and has been seen outpatient wound care visits to review to the ED due to outpatient failure on antibiotics. No fever, denies any nausea, vomiting, diarrhea, chest pain, shortness of breath, abdominal pain, urinary symptoms or bowel symptoms. 01/24: Patient evaluated examined at bedside. Resting in bed. Said pain well controlled. Continue antibiotics. ID consulted. Vascular surgery consulted today. We will continue to follow-up. 01/25: Seen and examined at bedside. Doing well resting in bed. Planning for amputation. Of fifth right toe tomorrow. Continue antibiotics. N.p.o. midnight. 01/26: Seen bedside. NPO. Tolerating IV antibiotics. Plan for right fifth toe debridement likely amputation for osteomyelitis treatment. Will adjust insulin for glargine nightly and increase sliding scale at meals given his elevated glucose: Goal Glucose is 140-180 Vitals/I&O Vitals/I&O: Vital Signs Date Time Temp Pulse Resp B/P (MAP) Pulse Ox O2 Delivery O2 Flow Rate FiO2 01/26/22 07:00 97.6 80 16 153/73 (99) 98 Room Air 97.6 I & O 01/25/22 01/25/22 01/26/22 15:00 23:00 07:00 Output Total 400 ml Balance -400 ml Physical Exam Physical Exam: GENERAL: Alert, oriented x 3, lying in bed comfortably, in no acute distress. HEENT: Normocephalic, atraumatic. Anicteric. NECK: Supple. LUNGS: Clear bilaterally. No wheezing. HEART: S1, S2. No gallops or murmurs. ABDOMEN: Soft, nontender, nondistended. No rebound or guarding. EXTREMITIES: No edema or cyanosis swelling with plantar ulceration of the right fifth metacarpophalangeal joint with overlying eschar there is a plantar ulceration near the right 5th mtp joint that is superficial with overlying eschar. No purulent drainage MUSCULOSKELETAL: No joint swelling. No decrease in range of motion. Changes suggestive of DJD except for above CENTRAL NERVOUS SYSTEM: Alert, oriented x 3, grossly nonfocal. PSYCHIATRIC: Cooperative, calm. LINES: looks clean. General: Alert, Oriented X3 Heart: Regular rate, Other (Palpable dp and pt on the right dp 1+ and PT 2+) Lungs: Clear Abdomen: Soft, No tenderness Extremities: No clubbing, No edema Skin: Other (There is a plantar ulceration near the right 5th mtp joint that is superficial with overlying eschar. ) Labs Labs: Laboratory Tests Test 01/25/22 17:36 01/25/22 20:29 01/26/22 05:00 01/26/22 07:39 Glucose (Fingerstick) 171 mg/dL (70-99) 223 mg/dL (70-99) 144 mg/dL (70-99) Creatinine 0.7 mg/dL (0.7-1.3) Estimated GFR (Cockcroft-Gault) 120.4 Assessment and Plan Assessmemt and Plan Problems Medical Problems: (1) Osteomyelitis of fifth toe of right foot Status: Acute Comment Review of Relevant I have reviewed the following items jayden (where applicable) has been applied. Justifications for Admission Other Justification LIZBETH MARTIN MD Jan 26, 2022 11:35
[2022-01-26] MEDS ORDERED: IV DEXTROSE 5% 250 ML BAG. IV PRN (11:45)
[2022-01-26] MEDS ORDERED: DEXTROSE 50% 25 GM / 50ML DISP.SYRIN. IV PRN (11:45)
--- NOTE | 2022-01-26 13:08 | NUR ---
Patient taken to surgery via bed with hospital transport staff
--- NOTE | 2022-01-26 13:09 | NUR ---
SW following. Discussed with RN, pt from home with family, room air, NPO, rapid COVID-19 negative. ID, Vascular and Wound care following. Pt down for surgery today. RN advised no SW needs at this time. SW will continue to follow.
[2022-01-26] MEDS ORDERED: DEXAMETHASONE SOD PHOS 4 MG/ML VIAL ONE (13:14)
[2022-01-26] MEDS ORDERED: ONDANSETRON PF 4 MG/2 ML VIAL. ONE (13:14)
[2022-01-26] MEDS ORDERED: LIDOCAINE 2% PF 5 ML VIAL. ONE (13:14)
[2022-01-26] MEDS ORDERED: PROPOFOL 10 MG/ML (20ML) VIAL. IV ONE (13:14)
[2022-01-26] MEDS ORDERED: fentaNYL PF VIAL 100 MCG/2 ML VIAL ONE (13:15)
[2022-01-26] MEDS ORDERED: LIDOCAINE 1% Multi-Dose 20 ML VIAL. ONE (14:21)
--- NOTE | 2022-01-26 15:07 | PDOC4 ---
OPERATIVE NOTE Date: Date: Jan 26, 2022 Pre-Op Diagnosis: 1.Right fifth distal phalanx osteomyelitis 2.Poorly controlled diabetes mellitus 3. Hypertrophic callus right plantar foot near mtp joint on 5th toe Post-Op Diagnosis: Same Procedure Performed: 1. Right fifth partial toe amputation 2. Sharp excisional debridement of hypertrophic callus right plantar foot 2x2 cm Surgeon: Marcia Murphy Anesthesia Type: General mask Blood Loss: 10 cc Specimans Obtained: right fifth toe for disposal Findings: There was no evidence of deep infection or abscess. The bone was healthy at the proximal phalanx. Complications: none Operative Note: Patient was brought to the operative theater on his inpatient bed. He was induced under mask anesthesia per anesthesiology and patient preference. The right foot was prepped at this time sterile fashion. His schedule antibiotics were administered prior to the procedure. Surgical timeout was performed confirming operative site. I then marked a fishmouth shaped incision around the proximal phalanx of the fifth toe. The marked incision was then taken straight down to bone with a 15 blade to the proximal phalanx. I then divided the proximal phalanx with a bone cutter and the fifth toe was then passed off for disposal. Used a rongeur to resect the proximal phalanx further back until the wound could be closed without tension. The wound was then irrigated with antibiotic solution. There was excellent bleeding encountered. Hemostasis was assured by ligating a vessel with 3-0 Vicryl. Bovie cautery was additionally used for hemostasis. The incision was then closed with a running 3-0 nylon without tension. I then turned my attention to hypertrophic callus in the plantar aspect of the foot near the fifth MTP joint. This was debrided with a 15 blade scalpel to remove callus back to healthy appearing epidermis. This was an area of 2 x 2 cm. The epidermis was not violated. The wounds were then covered with Xeroform, gauze, Kerlix and Tj wrap. The patient was then extubated and transferred to the PACU in stable condition. MARCIA MURPHY MD Jan 26, 2022 15:07
--- NOTE | 2022-01-26 15:14 | PDOC ---
Provider Note Date of Service: DATE: 01/26/22 TIME: 1330 Patient seen and examined preoperatively. He remains stable without any significant changes from yesterday consultation note. Will proceed with toe amputation as planned He will be non weight bearing to right forefoot postoperatively Will need forefoot offloading shoe postoperatively Will need fu in 3 weeks for suture removal Elevate leg postoperatively and bedrest with bathroom privileges today. May be ambulatory in half shoe on 01/27. Justicifation of Admission Dx: Justifications for Admission: Justification of Admission Dx: Yes Sepsis: Infection POPEYE PASTRANA MD Jan 26, 2022 15:14
--- NOTE | 2022-01-26 15:52 | PDOC ---
Infectious Disease Note Subjective Subjective Patient without complaints Just came back from surgery ROS ROS No nausea vomiting diarrhea Vital Sign Vital Signs Vital Signs Date Time Temp Pulse Resp B/P (MAP) Pulse Ox O2 Delivery O2 Flow Rate FiO2 01/26/22 15:30 97.2 76 16 158/92 96 Room Air 97.2 01/26/22 15:01 10.0 Physical Exam PHYSICAL EXAM GENERAL: Alert, oriented x 3, lying in bed comfortably, in no acute distress. HEENT: Normocephalic, atraumatic. Anicteric. NECK: Supple. LUNGS: Clear bilaterally. No wheezing. HEART: S1, S2. No gallops or murmurs. ABDOMEN: Soft, nontender, nondistended. No rebound or guarding. EXTREMITIES: Postsurgical dressing not open MUSCULOSKELETAL: No joint swelling. No decrease in range of motion. Changes suggestive of DJD except for above CENTRAL NERVOUS SYSTEM: Alert, oriented x 3, grossly nonfocal. PSYCHIATRIC: Cooperative, calm. LINES: looks clean. Labs Lab Laboratory Tests Test 01/25/22 17:36 01/25/22 20:29 01/26/22 05:00 01/26/22 07:39 Glucose (Fingerstick) 171 mg/dL (70-99) 223 mg/dL (70-99) 144 mg/dL (70-99) Creatinine 0.7 mg/dL (0.7-1.3) Estimated GFR (Cockcroft-Gault) 120.4 Test 01/26/22 11:37 01/26/22 15:11 Glucose (Fingerstick) 150 mg/dL (70-99) 115 mg/dL (70-99) Micro Microbiology 01/23/22 Blood Culture - Preliminary, Resulted NO GROWTH AFTER 2 DAYS Objective Assessment Rt 5 th toe osteomyelitis status post amputation DM HTN Plan Plan of Care Continue supportive care cont antibiotics CHOLO LOWRY MD Jan 26, 2022 15:52
[2022-01-26] MEDS ORDERED: INSULIN GLARGINE SYRINGE. SQ SCH (21:00)
[2022-01-26] MEDS: PSYLLIUM HUSK (SUGAR FREE) 1 PKT PACKET PO SCH (21:45)
--- NOTE | 2022-01-26 22:13 | NUR ---
Called dental practitioner MD FAULKNER, informed pts blood sugar results 424, on sliding scale. Patient A/O x4, was just happy to finally eat after 5th toe amputation today and had been NPO. Orders given to give 12 units now and Lantus long acting 48 units a little later tonight. Will continue to monitor patient.
[2022-01-27 02:45] VITALS: BP 117/80
[2022-01-27] MEDS: VANCOMYCIN 1.25 GM in IV NORMAL SALINE 250ML 250 ML IV SCH ×3 (04:11→20:16)
[2022-01-27] MEDS: CEFEPIME HCL IV Push 2 GM VIAL. IVP SCH ×3 (05:54→22:43)
[2022-01-27] MEDS: HEPARIN for SUB-Q USE 5,000 UNIT/ML VIAL. SQ SCH ×3 (06:07→22:44)
[2022-01-27 06:18] LABS: HEMATOCRIT 39.7 % (39.0-53.0); RED BLOOD COUNT 5.31 x10^6/uL (4.30-5.70); RED CELL DISTRIBUTION WIDTH 15.1 % (11.5-14.5)
[2022-01-27 07:00] VITALS: BP 123/84
--- NOTE | 2022-01-27 07:45 | PDOC ---
[facility] PROGRESS NOTE Date of Service DOS: DATE: 01/27/22 TIME: 07:43 Chief Complaint Chief Complaint Right foot with diabetic ulcer -obtain blood cultures, deep wound cultures. Started Vanc cefepime Flagyl. Wound care and Ortho consult given pathologic fracture; infectious disease consultation,, vascular consult Right foot and leg cellulitis antibiotics as above Right fifth toe osteomyelitispathologic fracture no significant vascular abnormalities on duplex. DM2 -continue home meds and on sliding scale Diabetic polyneuropathy - cont home gabapentin HTN - cont home meds Thrombocytopenia FEN - ADA diet PPX -Heparin FULL CODE Dispo - inpatient for diabetic ulcer failing outpatient therapy History of Present Illness History of Present Illness Mr Álvarez is a 46 yo w/ PMHx DM2, HTN who has significant wounds and calluses on his right foot especially laterally and has been seen outpatient wound care visits to review to the ED due to outpatient failure on antibiotics. No fever, denies any nausea, vomiting, diarrhea, chest pain, shortness of breath, abdominal pain, urinary symptoms or bowel symptoms. 01/24: Patient evaluated examined at bedside. Resting in bed. Said pain well controlled. Continue antibiotics. ID consulted. Vascular surgery consulted today. We will continue to follow-up. 01/25: Seen and examined at bedside. Doing well resting in bed. Planning for amputation. Of fifth right toe tomorrow. Continue antibiotics. N.p.o. midnight. 01/26: Seen bedside. NPO. Tolerating IV antibiotics. Plan for right fifth toe debridement likely amputation for osteomyelitis treatment. Will adjust insulin for glargine nightly and increase sliding scale at meals given his elevated glucose: Goal Glucose is 140-180 01/27: Seen bedside. Status post right fifth toe partial rotation closed. Also debridement of callus. Glucose in the 200s. Did have a glucose in the 400s overnight with changed his home Lantus to nightly to cover this. Vitals/I&O Vitals/I&O: Vital Signs Date Time Temp Pulse Resp B/P (MAP) Pulse Ox O2 Delivery O2 Flow Rate FiO2 01/27/22 02:45 97.5 92 18 117/80 (92) 96 Room Air 97.5 01/26/22 15:01 10.0 I & O 01/26/22 01/26/22 01/27/22 15:00 23:00 07:00 Intake Total 1970 ml Output Total 911 ml 1000 ml Balance 1059 ml -1000 ml Physical Exam Physical Exam: GENERAL: Alert, oriented x 3, lying in bed comfortably, in no acute distress. HEENT: Normocephalic, atraumatic. Anicteric. NECK: Supple. LUNGS: Clear bilaterally. No wheezing. HEART: S1, S2. No gallops or murmurs. ABDOMEN: Soft, nontender, nondistended. No rebound or guarding. EXTREMITIES: Postsurgical dressing not open MUSCULOSKELETAL: No joint swelling. No decrease in range of motion. Changes suggestive of DJD except for above CENTRAL NERVOUS SYSTEM: Alert, oriented x 3, grossly nonfocal. PSYCHIATRIC: Cooperative, calm. LINES: looks clean. General: Alert, Oriented X3 Heart: Regular rate, Other (Palpable dp and pt on the right dp 1+ and PT 2+) Lungs: Clear Abdomen: Soft, No tenderness Extremities: No clubbing, No edema Skin: Other (There is a plantar ulceration near the right 5th mtp joint that is superficial with overlying eschar. ) Labs Labs: Laboratory Tests Test 01/26/22 11:37 01/26/22 15:11 01/26/22 16:50 01/26/22 21:27 Glucose (Fingerstick) 150 mg/dL (70-99) 115 mg/dL (70-99) 150 mg/dL (70-99) 424 mg/dL (70-99) Test 01/27/22 05:05 White Blood Count 6.0 x10^3/uL (4.0-11.0) Red Blood Count 5.31 x10^6/uL (4.30-5.70) Hemoglobin 14.0 g/dL (13.0-17.5) Hematocrit 39.7 % (39.0-53.0) Mean Corpuscular Volume 75 fL (79-100) Mean Corpuscular Hemoglobin 26 pg (25-35) Mean Corpuscular Hemoglobin Concent 35 g/dL (31-37) Red Cell Distribution Width 15.1 % (11.5-14.5) Platelet Count 117 x10^3/uL (140-400) Assessment and Plan Assessmemt and Plan Problems Medical Problems: (1) Osteomyelitis of fifth toe of right foot Status: Acute Comment Review of Relevant I have reviewed the following items jayden (where applicable) has been applied. Medications: Current Medications Medications (Trade) Dose Ordered Sig/Mago Route PRN Reason Start Time Stop Time Status Last Admin Dose Admin Insulin Glargine (Lantus Syringe) 48 unit QHS SQ 01/26/22 21:00 01/27/22 00:03 Psyllium Hydrophilic Mucilloid (Metamucil Fiber Packet) 1 pkt QHS PO 01/26/22 21:00 01/26/22 21:45 Insulin Human Lispro (HumaLOG) 0-9 UNITS TIDACHC SQ 01/26/22 16:30 01/26/22 21:00 Lidocaine HCl (Lidocaine 1% 20ml Vial) 20 ml STK-MED ONCE .ROUTE 01/26/22 14:21 01/26/22 14:21 DC 01/26/22 14:21 Justifications for Admission Other Justification LIZBETH MARTIN MD Jan 27, 2022 07:45
[2022-01-27] MEDS: LACTOBACILLUS RHAMNOSUS GG 1 CAPSULE. PO SCH ×2 (08:43→20:11)
[2022-01-27] MEDS: LISINOPRIL 20 MG TABLET PO SCH (08:44)
[2022-01-27] MEDS: GABAPENTIN 100 MG CAPSULE. PO SCH ×3 (08:44→20:11)
[2022-01-27] MEDS: SENNOSIDES/DOCUSATE 8.6/50MG TABLET. PO SCH ×2 (08:44→20:11)
[2022-01-27] MEDS: INSULIN LISPRO 300 UNITS/3 ML VIAL. SQ SCH ×6 (08:52→20:29)
--- NOTE | 2022-01-27 09:37 | PDOC ---
Provider Note Date of Service: DATE: 01/27/22 TIME: 09:32 Provider Note Provider Note Vascular surgery S: Patient is seen in his room this morning. He denies any pain. Pt reports he does not feel ready to go home. O: VSS, afebrile awake, alert, INAD Respirations nonlabored, room air Palpaple Dp pulse right Right ft dressing removed, incision clean,dry and intact without drainage or erythema. Plantar ulcer clean. A/P: Uncontrolled DM Rt 5th toe osteo s/p amputation POD#1 Ok for discharge from our standpoint once medically stable with continued abx per ID. He does not have any pain. Discussed post op care instructions with him. Keep incision clean and dry at all times except if in shower, no soaking foot. Can shower tomorrow. Remain NWB right forefoot - Needs forefoot offloading half shoe prior to DC. Will f/u with us in 2-3 weeks for suture removal. Call with further questions. Justicifation of Admission Dx: Justifications for Admission: Justification of Admission Dx: Yes Sepsis: Infection CHUY HOFFMAN Jan 27, 2022 09:36
[2022-01-27 11:00] VITALS: BP 150/69
[2022-01-27] MEDS: metroNIDAZOLE 500 MG TABLET PO SCH ×2 (13:44→20:11)
--- NOTE | 2022-01-27 14:00 | PDOC ---
Infectious Disease Note Subjective: Subjective Patient without complaints denies any postop site pain Denies any fever, nausea, vomiting, diarrhea, abdominal pain, shortness of breath or cough Vital Signs: Vital Signs Vital Signs Date Time Temp Pulse Resp B/P (MAP) Pulse Ox O2 Delivery O2 Flow Rate FiO2 01/27/22 11:00 97.4 79 18 150/69 (96) 97 Room Air 97.4 01/26/22 15:01 10.0 Physical Exam: PHYSICAL EXAM GENERAL: Alert, oriented x 3, lying in bed comfortably, in no acute distress. HEENT: Normocephalic, atraumatic. Anicteric. NECK: Supple. LUNGS: Clear bilaterally. No wheezing. HEART: S1, S2. No gallops or murmurs. ABDOMEN: Soft, nontender, nondistended. No rebound or guarding. EXTREMITIES: Postsurgical dressing+.clean dry MUSCULOSKELETAL: No joint swelling. No decrease in range of motion. Changes suggestive of DJD except for above CENTRAL NERVOUS SYSTEM: Alert, oriented x 3, grossly nonfocal. PSYCHIATRIC: Cooperative, calm. LINES: looks clean. Medications: Inpatient Meds: Medications reviewed. Labs: Lab Laboratory Tests Test 01/26/22 15:11 01/26/22 16:50 01/26/22 21:27 01/27/22 05:05 Glucose (Fingerstick) 115 mg/dL (70-99) 150 mg/dL (70-99) 424 mg/dL (70-99) White Blood Count 6.0 x10^3/uL (4.0-11.0) Red Blood Count 5.31 x10^6/uL (4.30-5.70) Hemoglobin 14.0 g/dL (13.0-17.5) Hematocrit 39.7 % (39.0-53.0) Mean Corpuscular Volume 75 fL (79-100) Mean Corpuscular Hemoglobin 26 pg (25-35) Mean Corpuscular Hemoglobin Concent 35 g/dL (31-37) Red Cell Distribution Width 15.1 % (11.5-14.5) Platelet Count 117 x10^3/uL (140-400) Test 01/27/22 07:21 01/27/22 11:27 Glucose (Fingerstick) 223 mg/dL (70-99) 226 mg/dL (70-99) Objective: Assessment: Rt 5 th toe osteomyelitis,closed amputation DM HTN Plan: Plan of Care Continue supportive care cont current antibiotics When ready for discharge transition to p.o. Augmentin and doxycycline for 10 days Activity per vascular surgery Continue local wound care as directed VERÓNICA LOWRY MD Jan 27, 2022 14:00
[2022-01-27 15:00] VITALS: BP 132/73
[2022-01-27 19:25] VITALS: BP 150/80
[2022-01-27] MEDS: PSYLLIUM HUSK (SUGAR FREE) 1 PKT PACKET PO SCH (20:10)
[2022-01-27] MEDS ORDERED: INSULIN GLARGINE SYRINGE. SQ SCH (21:00)
[2022-01-27 23:18] VITALS: BP 135/83
[2022-01-28 03:13] VITALS: BP 161/93
[2022-01-28] MEDS: VANCOMYCIN 1.25 GM in IV NORMAL SALINE 250ML 250 ML IV SCH ×2 (04:01→12:16)
[2022-01-28] MEDS: metroNIDAZOLE 500 MG TABLET PO SCH ×2 (05:31→15:18)
[2022-01-28] MEDS: CEFEPIME HCL IV Push 2 GM VIAL. IVP SCH ×2 (05:31→14:00)
[2022-01-28] MEDS: HEPARIN for SUB-Q USE 5,000 UNIT/ML VIAL. SQ SCH (05:33)
[2022-01-28 07:15] VITALS: BP 152/88
[2022-01-28] MEDS: INSULIN LISPRO 300 UNITS/3 ML VIAL. SQ SCH ×4 (07:30→12:21)
[2022-01-28 08:19] LABS: CALCIUM 8.3 mg/dL (8.5-10.1); CREATININE 0.6 mg/dL (0.7-1.3); GFR 143.8; POTASSIUM 3.5 mmol/L (3.5-5.1)
[2022-01-28] MEDS: LISINOPRIL 20 MG TABLET PO SCH (08:25)
[2022-01-28] MEDS: GABAPENTIN 100 MG CAPSULE. PO SCH ×2 (08:25→15:18)
[2022-01-28] MEDS: SENNOSIDES/DOCUSATE 8.6/50MG TABLET. PO SCH (08:25)
[2022-01-28] MEDS: LACTOBACILLUS RHAMNOSUS GG 1 CAPSULE. PO SCH (08:25)
[2022-01-28 11:05] VITALS: BP 154/94
--- NOTE | 2022-01-28 13:15 | PDOC ---
[employer] PROGRESS NOTE Date of Service DOS: DATE: 01/28/22 TIME: 13:08 Chief Complaint Chief Complaint Right foot with diabetic ulcer -obtain blood cultures, deep wound cultures. Started Vanc cefepime Flagyl. Wound care and Ortho consult given pathologic fracture; infectious disease consultation,, vascular consult Right foot and leg cellulitis antibiotics as above Right fifth toe osteomyelitispathologic fracture no significant vascular abnormalities on duplex. DM2 -continue home meds and on sliding scale Diabetic polyneuropathy - cont home gabapentin HTN - cont home meds Thrombocytopenia FEN - ADA diet PPX -Heparin FULL CODE Dispo - inpatient for diabetic ulcer failing outpatient therapy History of Present Illness History of Present Illness Mr Álvarez is a 46 yo w/ PMHx DM2, HTN who has significant wounds and calluses on his right foot especially laterally and has been seen outpatient wound care visits to review to the ED due to outpatient failure on antibiotics. No fever, denies any nausea, vomiting, diarrhea, chest pain, shortness of breath, abdominal pain, urinary symptoms or bowel symptoms. 01/24: Patient evaluated examined at bedside. Resting in bed. Said pain well controlled. Continue antibiotics. ID consulted. Vascular surgery consulted today. We will continue to follow-up. 01/25: Seen and examined at bedside. Doing well resting in bed. Planning for amputation. Of fifth right toe tomorrow. Continue antibiotics. N.p.o. midnight. 01/26: Seen bedside. NPO. Tolerating IV antibiotics. Plan for right fifth toe debridement likely amputation for osteomyelitis treatment. Will adjust insulin for glargine nightly and increase sliding scale at meals given his elevated glucose: Goal Glucose is 140-180 01/27: Seen bedside. Status post right fifth toe partial rotation closed. Also debridement of callus. Glucose in the 200s. Did have a glucose in the 400s overnight with changed his home Lantus to nightly to cover this. 01/28: Has front offloading shoe. Glucose still in 200s. He is asking about taking short-term disability from work. Discussed bedside he should consider filing for FMLA. Vitals/I&O Vitals/I&O: Vital Signs Date Time Temp Pulse Resp B/P (MAP) Pulse Ox O2 Delivery O2 Flow Rate FiO2 01/28/22 11:05 98.2 85 18 154/94 (114) 97 Room Air 98.2 I & O 01/27/22 01/27/22 01/28/22 15:00 23:00 07:00 Intake Total 220 ml 360 ml 240 ml Output Total 400 ml 300 ml Balance -180 ml 360 ml -60 ml Physical Exam Physical Exam: GENERAL: Alert, oriented x 3, lying in bed comfortably, in no acute distress. HEENT: Normocephalic, atraumatic. Anicteric. NECK: Supple. LUNGS: Clear bilaterally. No wheezing. HEART: S1, S2. No gallops or murmurs. ABDOMEN: Soft, nontender, nondistended. No rebound or guarding. EXTREMITIES: Postsurgical dressing+.clean dry MUSCULOSKELETAL: No joint swelling. No decrease in range of motion. Changes suggestive of DJD except for above CENTRAL NERVOUS SYSTEM: Alert, oriented x 3, grossly nonfocal. PSYCHIATRIC: Cooperative, calm. LINES: looks clean. General: Alert, Oriented X3 Heart: Regular rate, Other (Palpable dp and pt on the right dp 1+ and PT 2+) Lungs: Clear Abdomen: Soft, No tenderness Extremities: No clubbing, No edema Skin: Other (There is a plantar ulceration near the right 5th mtp joint that is superficial with overlying eschar. ) Labs Labs: Laboratory Tests Test 01/27/22 17:07 01/27/22 20:09 01/28/22 06:05 01/28/22 07:10 Glucose (Fingerstick) 276 mg/dL (70-99) 231 mg/dL (70-99) 129 mg/dL (70-99) Sodium Level 139 mmol/L (136-145) Potassium Level 3.5 mmol/L (3.5-5.1) Chloride Level 105 mmol/L (98-107) Carbon Dioxide Level 25 mmol/L (21-32) Anion Gap 9 (6-14) Blood Urea Nitrogen 16 mg/dL (8-26) Creatinine 0.6 mg/dL (0.7-1.3) Estimated GFR (Cockcroft-Gault) 143.8 Glucose Level 152 mg/dL (70-99) Calcium Level 8.3 mg/dL (8.5-10.1) Test 01/28/22 11:40 Glucose (Fingerstick) 220 mg/dL (70-99) Assessment and Plan Assessmemt and Plan Problems Medical Problems: (1) Osteomyelitis of fifth toe of right foot Status: Acute Comment Review of Relevant I have reviewed the following items jayden (where applicable) has been applied. Medications: Current Medications Medications (Trade) Dose Ordered Sig/Mago Route PRN Reason Start Time Stop Time Status Last Admin Dose Admin Metronidazole (Flagyl) 500 mg Q8HRS PO 01/27/22 14:00 01/28/22 05:31 Insulin Glargine (Lantus Syringe) 60 unit QHS SQ 01/27/22 21:00 01/27/22 20:28 Justifications for Admission Other Justification LIZBETH MARTIN MD Jan 28, 2022 13:15
[2022-01-28] MEDS ORDERED: AMOX1TAB61 PO (13:20)
[2022-01-28] MEDS ORDERED: DOXY-181 PO (13:20)
--- NOTE | 2022-01-28 13:26 | PDOC3 ---
Discharge Summary Visit Information Date of Admission: Jan 23, 2022 Date of Discharge: Jan 28, 2022 Admitting Diagnosis: Osteomyelitis of 5th toe Final Diagnosis Problems Medical Problems: (1) Osteomyelitis of fifth toe of right foot Status: Acute Brief Hospital Course Allergies Allergies Coded Allergies Type Severity Reaction Last Updated Verified No Known Drug Allergies 07/17/20 No Vital Signs Vital Signs Date Time Temp Pulse Resp B/P (MAP) Pulse Ox O2 Delivery O2 Flow Rate FiO2 01/28/22 11:05 98.2 85 18 154/94 (114) 97 Room Air 98.2 Lab Results Laboratory Tests Test 01/26/22 15:11 01/26/22 16:50 01/26/22 21:27 01/27/22 05:05 Glucose (Fingerstick) 115 mg/dL (70-99) 150 mg/dL (70-99) 424 mg/dL (70-99) White Blood Count 6.0 x10^3/uL (4.0-11.0) Red Blood Count 5.31 x10^6/uL (4.30-5.70) Hemoglobin 14.0 g/dL (13.0-17.5) Hematocrit 39.7 % (39.0-53.0) Mean Corpuscular Volume 75 fL (79-100) Mean Corpuscular Hemoglobin 26 pg (25-35) Mean Corpuscular Hemoglobin Concent 35 g/dL (31-37) Red Cell Distribution Width 15.1 % (11.5-14.5) Platelet Count 117 x10^3/uL (140-400) Test 01/27/22 07:21 01/27/22 11:27 01/27/22 17:07 01/27/22 20:09 Glucose (Fingerstick) 223 mg/dL (70-99) 226 mg/dL (70-99) 276 mg/dL (70-99) 231 mg/dL (70-99) Test 01/28/22 06:05 01/28/22 07:10 01/28/22 11:40 Sodium Level 139 mmol/L (136-145) Potassium Level 3.5 mmol/L (3.5-5.1) Chloride Level 105 mmol/L (98-107) Carbon Dioxide Level 25 mmol/L (21-32) Anion Gap 9 (6-14) Blood Urea Nitrogen 16 mg/dL (8-26) Creatinine 0.6 mg/dL (0.7-1.3) Estimated GFR (Cockcroft-Gault) 143.8 Glucose Level 152 mg/dL (70-99) Calcium Level 8.3 mg/dL (8.5-10.1) Glucose (Fingerstick) 129 mg/dL (70-99) 220 mg/dL (70-99) Laboratory Tests Test 01/27/22 17:07 01/27/22 20:09 01/28/22 06:05 01/28/22 07:10 Glucose (Fingerstick) 276 mg/dL (70-99) 231 mg/dL (70-99) 129 mg/dL (70-99) Sodium Level 139 mmol/L (136-145) Potassium Level 3.5 mmol/L (3.5-5.1) Chloride Level 105 mmol/L (98-107) Carbon Dioxide Level 25 mmol/L (21-32) Anion Gap 9 (6-14) Blood Urea Nitrogen 16 mg/dL (8-26) Creatinine 0.6 mg/dL (0.7-1.3) Estimated GFR (Cockcroft-Gault) 143.8 Glucose Level 152 mg/dL (70-99) Calcium Level 8.3 mg/dL (8.5-10.1) Test 01/28/22 11:40 Glucose (Fingerstick) 220 mg/dL (70-99) Brief Hospital Course Mr Álvarez is a 46 yo w/ PMHx DM2, HTN who has significant wounds and calluses on his right foot especially laterally and has been seen outpatient wound care visits to review to the ED due to outpatient failure on antibiotics. No fever, denies any nausea, vomiting, diarrhea, chest pain, shortness of breat h, abdominal pain, urinary symptoms or bowel symptoms. 01/24: Patient evaluated examined at bedside. Resting in bed. Said pain well controlled. Continue antibiotics. ID consulted. Vascular surgery consulted today. We will continue to follow-up. 01/25: Seen and examined at bedside. Doing well resting in bed. Planning for amputation. Of fifth right toe tomorrow. Continue antibiotics. N.p.o. midnight. 01/26: Seen bedside. NPO. Tolerating IV antibiotics. Plan for right fifth toe debridement likely amputation for osteomyelitis treatment. Will adjust insulin for glargine nightly and increase sliding scale at meals given his elevated glucose: Goal Glucose is 140-180 01/27: Seen bedside. Status post right fifth toe partial rotation closed. Also debridement of callus. Glucose in the 200s. Did have a glucose in the 400s overnight with changed his home Lantus to nightly to cover this. 01/28: Has front offloading shoe. Glucose still in 200s. He is asking about taking short-term disability from work. Discussed bedside he should consider filing for FMLA. Consults: Vascular surgery and ID Problem list: Right foot with diabetic ulcer- s/p debridement Right foot and leg cellulitis antibiotics as above - transition to PO doxy and augmentin Right fifth toe osteomyelitispathologic fracture no significant vascular abnormalities on duplex - Status post right fifth toe partial rotation closed on 01/26/22 DM2 -continue home meds and on sliding scale Diabetic polyneuropathy - cont home gabapentin HTN - cont home meds Thrombocytopenia Plan: Incisions clean dry intact no drainage no erythema ulcer clean after debridement we will keep incision clean and dry at all times and wear offloading shoe. Will need vascular Surgery follow-up [id number] [place] [address] In 2 to 3 weeks for suture removal Greater than 30 minutes spent on d/c home with self care Discharge Information Condition at Discharge: Improved Follow Up: Weeks Disposition/Orders: D/C to Home Scheduled Amoxicillin/Potassium Clav (Augmentin 875-125 Tablet) 1 Each Tablet, 1 TAB PO BID for Cellulitis for 10 Days, #20 Ref 0 Prescribed by: LIZBETH MARTIN MD on 01/28/22 1320 Doxycycline Monohydrate (Doxycycline Monohydrate) 100 Mg Capsule, 1 CAP PO BID for Cellulitis/abscess for 10 Days, #20 Prescribed by: LIZBETH MARTIN MD on 01/28/22 1320 Gabapentin (Gabapentin ) 100 Mg Capsule, 100 MG PO TID for NEUROGENIC PAIN, (Reported) Entered as Reported by: MARION MARTINEZ on 07/17/201733 Last Action: Continued on 01/23/221747 by LIZBETH HAAS MD Glipizide (Glipizide Er) 5 Mg Tab.er.24, 1 TAB PO DAILY for diabetes, #30 Ref 5 (Reported) Entered as Reported by: MARION MARTINEZ on 07/17/201733 Last Action: HELD on 01/23/221747 by LIZBETH HAAS MD Insulin Degludec (Tresiba) 100 Unit/1 Ml Vial, 57 UNIT SQ DAILYWBKFT for diabetes, (Reported) Entered as Reported by: MARION MARTINEZ on 07/17/201733 Last Action: Reviewed on 01/23/222222 by MAGDY PIPER RN Lisinopril (Lisinopril) 20 Mg Tablet, 1 TAB PO DAILY for unknown, #30 Ref 5 (Reported) Entered as Reported by: MARINO MARTINEZ on 07/17/201733 Last Action: Reviewed on 01/23/222222 by MAGDY PIPER RN Metformin Hcl (Metformin Hcl) 1,000 Mg Tablet, 1,000 MG PO BIDWMEALS for DM, (Reported) Entered as Reported by: MAGDY PIPER RN on 01/23/222310 Last Action: New Order on 01/23/222310 by MAGDY PIPER RN Rosuvastatin Calcium (Rosuvastatin Calcium) 20 Mg Tablet, 20 MG PO DAILY for cholesterol, (Reported) Entered as Reported by: MAGDY PIPER RN on 01/23/222310 Last Action: New Order on 01/23/222310 by MAGDY PIPER RN Discontinued Medications Amlodipine Besylate (Amlodipine Besylate) 10 Mg Tablet, 20 MG PO DAILY for HTN, (Reported) Entered as Reported by: MAGDY PIPER RN on 01/23/222310 Last Action: New Order on 01/23/222310 by MAGDY PIPER RN Lisinopril (Lisinopril) 30 Mg Tablet, 30 MG PO DAILY for FOR HYPERTENSION, #30 Ref 0 (Reported) Entered as Reported by: MAGDY PIPER RN on 01/23/222310 Last Action: New Order on 01/23/222310 by MAGDY PIPER RN [Fluconazole] 100 MG TABLET, 200 MG PO DAILY for foot wound for 30 Days, #60 Prescribed by: BULL FAULKNER MD on 07/22/20 1213 Last Action: Converted on 01/23/221747 by LIZBETH HAAS MD Justicifation of Admission Dx: Justifications for Admission: Justification of Admission Dx: Yes Sepsis: Infection LIZBETH MARTIN MD Jan 28, 2022 13:26
--- NOTE | 2022-01-28 13:40 | NUR ---
DHRUV Hudson paged re: clarification of R ft drsg for d/c home today.
[2022-01-28 14:57] VITALS: BP 159/87
--- NOTE | 2022-01-28 15:09 | PDOC ---
Infectious Disease Note Subjective: Subjective Patient without complaints Eager for discharge home today Vital Signs: Vital Signs Vital Signs Date Time Temp Pulse Resp B/P (MAP) Pulse Ox O2 Delivery O2 Flow Rate FiO2 01/28/22 14:57 97.5 85 20 159/87 (111) 97 Room Air 97.5 Physical Exam: PHYSICAL EXAM GENERAL: Alert, oriented x 3, lying in bed comfortably, in no acute distress. HEENT: Normocephalic, atraumatic. Anicteric. NECK: Supple. LUNGS: Clear bilaterally. No wheezing. HEART: S1, S2. No gallops or murmurs. ABDOMEN: Soft, nontender, nondistended. No rebound or guarding. EXTREMITIES: dressing+.clean dry. Wound pictures reviewed in wound chart from today MUSCULOSKELETAL: No joint swelling. No decrease in range of motion. Changes suggestive of DJD except for above CENTRAL NERVOUS SYSTEM: Alert, oriented x 3, grossly nonfocal. PSYCHIATRIC: Cooperative, calm. LINES: looks clean. Medications: Inpatient Meds: Medications reviewed. Labs: Lab Laboratory Tests Test 01/27/22 17:07 01/27/22 20:09 01/28/22 06:05 01/28/22 07:10 Glucose (Fingerstick) 276 mg/dL (70-99) 231 mg/dL (70-99) 129 mg/dL (70-99) Sodium Level 139 mmol/L (136-145) Potassium Level 3.5 mmol/L (3.5-5.1) Chloride Level 105 mmol/L (98-107) Carbon Dioxide Level 25 mmol/L (21-32) Anion Gap 9 (6-14) Blood Urea Nitrogen 16 mg/dL (8-26) Creatinine 0.6 mg/dL (0.7-1.3) Estimated GFR (Cockcroft-Gault) 143.8 Glucose Level 152 mg/dL (70-99) Calcium Level 8.3 mg/dL (8.5-10.1) Test 01/28/22 11:40 Glucose (Fingerstick) 220 mg/dL (70-99) Objective: Assessment: Rt 5 th toe osteomyelitis,closed amputation DM HTN Plan: Plan of Care p.o. Augmentin and doxycycline for 10 days Continue local wound care as directed Discussed with VERÓNICA CASTORENA MD Jan 28, 2022 15:09
--- NOTE | 2022-01-28 15:28 | NUR ---
Pt. discharged to home, rx sent to pharmacy. Pt. verbalized understanding of discharge instructions and drsg changes for R foot at home.
== END 2022-01-28 15:30 | disposition home or self-care (01) | DRG 41 ==
LOC: ER 14:44 → 4 NORTH 17:05
PROVIDERS: ADMIT Student in an Organized Health Care Education/Training Program; ATTEND Student in an Organized Health Care Education/Training Program
PROC: 0Y6X0Z1 Detachment at Right 5th Toe, High, Open Approach (ICD-10-PCS; principal; 2022-01-23)
PROC: 0SBM0ZZ Excision of Right Metatarsal-Phalangeal Joint, Open Approach (ICD-10-PCS; 2022-01-23)
DX: E11.42 Type 2 diabetes mellitus with diabetic polyneuropathy (principal); L03.115 Cellulitis of right lower limb; M86.8X8 Other osteomyelitis, other site; E11.621 Type 2 diabetes mellitus with foot ulcer; E11.69 Type 2 diabetes mellitus with other specified complication; E11.622 Type 2 diabetes mellitus with other skin ulcer; D69.6 Thrombocytopenia, unspecified; E11.65 Type 2 diabetes mellitus with hyperglycemia; I10 Essential (primary) hypertension; L84 Corns and callosities; L97.519 Non-pressure chronic ulcer of other part of right foot with unspecified severity; Z82.49 Family history of ischemic heart disease and other diseases of the circulatory system; Z83.3 Family history of diabetes mellitus; Z87.891 Personal history of nicotine dependence; Z20.822 Contact with and (suspected) exposure to COVID-19
CPT/HCPCS: 36415; 73660; 80048; 80053; 80202; 81001; 82565; 82962; 85025; 85027; 85651; 86140; 87040; 87426; 93926; 96365; 96375; A4213; A4930; A6402; A6443; A6449; J0692; J1100; J1644; J1815; J2405; J2543; J2704; J3010; J3370; J3490; J7040; J7050; J7120; 97116-GP; 99285-25; G0378; J7030